=== PATIENT | male | born 1970 | race Two or more races ===

== ENCOUNTER 2017-08-02 12:55 | Emergency (ER) | payer OTHER ==
[~2017-08-02] VITALS: Ht 165.1 cm; Wt 83.9 kg
[2017-08-02 13:41] VITALS: BP 97/62
--- NOTE | 2017-08-02 14:16 | Emergency Room Report ---
History of Present Illness General Chief Complaint: Skin Rash/Abscess Source: Patient Present Illness HPI Pt. presents to the ED c/o 02/02 in severity localized pain, swelling, and erythema with drainage to the posterior left scalp area x 6 days. Denies fevers or chills. Patient reports history of diabetes and he takes oral hypoglycemic medications. Patient denies pain in the neck or stiffness.Denies lesions/ rashes elsewhere on the body. Denies new medications or body washes or creams. Denies swelling of the lips, tongue , throat or airway. Denies wheezing, or shortness of breath. Denies recent travel, recent illness or ill contacts. denies blisters, oral lesions, or sloughing of the skin. Allergies: Coded Allergies: No Known Allergies (Unverified , 08/02/17) Patient History Past Medical History: see triage record Past Surgical History: none Pertinent Family History: none Reviewed Nursing Documentation: PMH: Agreed, PSxH: Agreed Nursing Documentation-PMH Past Medical History: No History, Except For Hx Hypertension: Yes Hx Diabetes: Yes Hx Gastrointestinal Problems: Yes - KIDNEY STENT Hx Dialysis: No - GOUT Review of Systems All Other Systems: negative except mentioned in HPI Physical Exam Vital Signs Date Time Temp Pulse Resp B/P (MAP) Pulse Ox O2 Delivery O2 Flow Rate FiO2 08/02/17 13:15 98.2 83 20 97/62 99 Room Air Sp02 EP Interpretation: reviewed, normal General Appearance: no apparent distress, alert, GCS 15, non-toxic Head: normocephalic, other - abscess to the left posterior scalp - draining. ENT: hearing grossly normal, normal voice Neck: full range of motion, no meningismus, no bony tend Respiratory: lungs clear, normal breath sounds, speaking full sentences Cardiovascular #1: regular rate, rhythm Musculoskeletal: back normal, gait/station normal, normal range of motion, non- tender - no cervical ttp. Neurologic: alert, oriented x3, responsive, motor strength/tone normal, sensory intact, normal gait, speech normal, grossly normal Psychiatric: judgement/insight normal Skin: no rash, warm/dry, well hydrated, other - Pt. has 2 cm fluctuant and draining abscess. Lymphatic: no adenopathy Procedures Incision and Drainage Incision and Drainage : Consent: Verbal Site: left posterior scalp Blade Size: 11 I & D Procedure: betadine prep, sterile drapes applied Wound Location: head Wound's Depth, Shape: superficial Wound Length (cm): 1 Wound Explored: contaminated - thin purulent d/c , easily expressed. Anesthesia: 1% Lidocaine Volume Anesthetic (ccs): 1 Splint Applied?: No Sling Applied?: No Patient Tolerated: Well Complications: None Medical Decision Making PA Attestation Dr. Pham is my supervising Physician whom patient management has been discussed with. Diagnostic Impression: Primary Impression: Abscess ER Course Pt. presents to the ED c/o 02/02 in severity localized pain, swelling, and erythema with drainage to the posterior left scalp area x 6 days. Denies fevers or chills. Patient reports history of diabetes and he takes oral hypoglycemic medications. Patient denies pain in the neck or stiffness.Denies lesions/ rashes elsewhere on the body. Denies new medications or body washes or creams. Denies swelling of the lips, tongue , throat or airway. Denies wheezing, or shortness of breath. Denies recent travel, recent illness or ill contacts. denies blisters, oral lesions, or sloughing of the skin. Ddx considered but are not limited to cellulitis, abscess, cystic acne, necrotizing fasciitis, insect bite. Vital signs: are WNL, pt. is afebrile H&PE are most consistent with ST abscess ORDERS: none required at this time, the diagnosis is clinical ED INTERVENTIONS: -I & D. DISCHARGE: At this time pt. is stable for d/c to home. Will provide printed patient care instructions, and any necessary prescriptions. Care plan and follow up instructions have been discussed with the patient prior to discharge. Last Vital Signs Date Time Temp Pulse Resp B/P (MAP) Pulse Ox O2 Delivery O2 Flow Rate FiO2 08/02/17 13:41 98.2 73 20 97/62 99 Room Air Disposition: HOME, SELF-CARE Condition: Stable Scripts Bacitracin/Polymyxin B Sulfate (BACITRACIN-POLYMYXIN OINTMENT) 28.35 Gm Oint...g. 1 APPLIC TP BID, #28.3 GM Prov: Cristina Crow P.A. 08/02/17 Trimethoprim/Sulfamethoxazole 160/800* (BACTRIM DS TABLET*) 1 Each Tablet 1 TAB ORAL TWICE A DAY for 7 Days, #14 TAB Prov: Cristina Crow P.AJessica 08/02/17 Cephalexin* (KEFLEX*) 500 Mg Capsule 500 MG ORAL EVERY 12 HOURS for 7 Days, #14 CAP 0 Refills Prov: Cristina Crow 08/02/17 Patient Instructions: Abscess Additional Instructions: Take medications as directed. Follow up with a Primary Care Provider in 3-5 days, even if your symptoms have resolved. --Please review list of primary care clinics, if you do not already have a primary care provider Return sooner to ED if new symptoms occur, or current symptoms become worse. - Please note that this Emergency Department Report was dictated using [employer] director technology software, occasionally this can lead to erroneous entry secondary to interpretation by the dictation equipment. Cristina Crow Aug 02, 2017 14:16
[2017-08-02] MEDS ORDERED: BACTRIM DS TAB1 EAC1 ORAL (14:18)
[2017-08-02] MEDS ORDERED: BACITRACIN-P28.35 GM TP (14:18)
[2017-08-02] MEDS ORDERED: CEPHALEXIN500 MG ORAL (14:18)
[2017-08-02] MEDS ORDERED: Tetanus/Diptheria/Pertussis Vaccine 0.5ml Syr IM ONE (14:30)
[2017-08-02 14:57] VITALS: BP 97/62
== END 2017-08-02 15:00 | disposition home or self-care (01) ==
LOC: EMR 13:00
DX: L02.811 Cutaneous abscess of head [any part, except face] (principal); Z23 Encounter for immunization; E11.9 Type 2 diabetes mellitus without complications; I10 Essential (primary) hypertension; M10.9 Gout, unspecified
CPT/HCPCS: 10060; 90471; 90715; 99284

== ENCOUNTER 2018-01-29 08:48 | Emergency (ER) | payer OTHER ==
[~2018-01-29] VITALS: Ht 154.9 cm; Wt 77.1 kg
[~2018-01-29 08:48] MED LIST: BACITRACIN-P28.35 GM TP; BACTRIM DS TAB1 EAC1 ORAL; CEPHALEXIN500 MG ORAL
[2018-01-29 09:00] VITALS: BP 115/74
--- NOTE | 2018-01-29 09:21 | Emergency Room Report ---
History of Present Illness General Chief Complaint: Skin Rash/Abscess Source: Patient Present Illness HPI Patient presents with complaints of discomfort to the posterior neck area with likely infection Pain is 3 out of 10 Patient initially saw some very small discharge however not currently Denies any fevers or chills Denies any photophobia The discomfort to the neck area is around the location of the infection otherwise no meningismus complaint Denies any vomiting or diarrhea Allergies: Coded Allergies: No Known Allergies (Unverified , 08/02/17) Patient History Past Medical History: see triage record Pertinent Family History: none Reviewed Nursing Documentation: PMH: Agreed; PSxH: Agreed Nursing Documentation-PM Past Medical History: No History, Except For Hx Hypertension: Yes Hx Diabetes: Yes Hx Gastrointestinal Problems: Yes - KIDNEY STENT Hx Dialysis: No - GOUT Review of Systems All Other Systems: negative except mentioned in HPI Physical Exam Vital Signs Date Time Temp Pulse Resp B/P (MAP) Pulse Ox O2 Delivery O2 Flow Rate FiO2 01/29/18 08:55 98.2 96 20 115/74 98 98.2 Sp02 EP Interpretation: reviewed, normal General Appearance: well appearing, no apparent distress Head: normocephalic, atraumatic Eyes: bilateral eye PERRL, bilateral eye EOMI ENT: normal pharynx, no angioedema Neck: full range of motion, supple Respiratory: chest non-tender, lungs clear Cardiovascular #1: regular rate, rhythm Gastrointestinal: non tender, soft Musculoskeletal: normal inspection Neurologic: alert, oriented x3, responsive Psychiatric: normal inspection Skin: other - Small area of what appears to be likely folliculitis just at the hairline on the left aspect of the occipital region. No obvious dermatomal spread, the folliculitis measures approximately half by half centimeter. Lymphatic: no adenopathy Medical Decision Making Diagnostic Impression: Primary Impression: Folliculitis ER Course The area in question at this time does not require and is not appropriate for incision Patient will be trialed on warm compresses and oral antibiotics Patient is educated that if there is any worsening of his condition or the size of the area to return to the emergency room more emergently as the area could potentially require incision at that time And will have initial conservative outpatient trial Last Vital Signs Date Time Temp Pulse Resp B/P (MAP) Pulse Ox O2 Delivery O2 Flow Rate FiO2 01/29/18 08:55 98.2 96 20 115/74 98 98.2 Status: unchanged Disposition: HOME, SELF-CARE Condition: Stable Additional Instructions: Patient is provided with the discharge instructions notified to follow up with primary doctor in the next 2-3 days otherwise return to the er with any worsening symptoms. Please note that this report is being documented using [employer] technology. This can lead to erroneous entry secondary to incorrect interpretation by the dictating instrument. Leonard Can DO Jan 29, 2018 09:21
[2018-01-29] MEDS ORDERED: CEPHALEXIN500 MG ORAL (09:23)
[2018-01-29] MEDS ORDERED: IBUPROFEN600 MG ORAL (09:23)
[2018-01-29] MEDS ORDERED: BACTRIM DS TAB1 EAC1 ORAL (09:23)
[2018-01-29 09:37] VITALS: BP 106/65
== END 2018-01-29 09:37 | disposition home or self-care (01) ==
LOC: EMR 09:28
DX: L73.9 Follicular disorder, unspecified (principal); E11.9 Type 2 diabetes mellitus without complications; I10 Essential (primary) hypertension
CPT/HCPCS: 99282

== ENCOUNTER 2018-06-23 08:43 | Emergency (ER) | payer OTHER ==
[~2018-06-23] VITALS: Ht 160 cm; Wt 77.1 kg
[~2018-06-23 08:43] MED LIST changes: +IBUPROFEN600 MG ORAL
[2018-06-23 09:12] VITALS: BP 122/79
[2018-06-23] MEDS ORDERED: Bactrim-DS 1 tab ORAL ONE (09:15)
[2018-06-23] MEDS ORDERED: traMADol 50mg tab ORAL ONE (09:15)
[2018-06-23] MEDS ORDERED: Bacitracin Oint UD TOPIC ONE (09:15)
--- NOTE | 2018-06-23 09:16 | NUR ---
ED Nurse Note: Pt came in from home due to R 5th finger swelling and pain pt cut his finger 3-4 days ago, patient was opening a card board box. patient c/o pain 9/10radiating to his right upper arm daughter at bedside. patient stated that he drained the pus as much as he can.
--- NOTE | 2018-06-23 09:19 | Emergency Room Report ---
History of Present Illness General Chief Complaint: Skin Rash/Abscess Source: Patient Present Illness HPI Diabetic patient presents with infection of his right little finger. He put a needle into it and it drained pus last night. Still with swelling and pain. The swelling is better. Pain is rated 8-9/10 and radiates up into his arm. No fevers, chills, redness in hand or arm. No NVD. The patient is insulin-dependent. He states his sugars have been maximally at this the 380s. They're being controlled better at this time. His last tetanus shot was 2 years ago. Had abscess I and D neck July this year. Allergies: Coded Allergies: No Known Allergies (Unverified , 08/02/17) Patient History Past Medical History: see triage record Social History: Denies: smoking, alcohol use, drug use Social History Narrative with daughter Reviewed Nursing Documentation: PMH: Agreed; PSxH: Agreed Nursing Documentation-PMH Past Medical History: No History, Except For Hx Hypertension: Yes Hx Diabetes: Yes Hx Gastrointestinal Problems: Yes - KIDNEY STENT Hx Dialysis: No - GOUT Review of Systems All Other Systems: negative except mentioned in HPI Physical Exam Vital Signs Date Time Temp Pulse Resp B/P (MAP) Pulse Ox O2 Delivery O2 Flow Rate FiO2 06/23/18 08:56 97.9 80 18 122/79 97 Room Air Sp02 EP Interpretation: reviewed, normal General Appearance: well appearing, no apparent distress Head: normocephalic, atraumatic Eyes: bilateral eye normal inspection, bilateral eye PERRL ENT: hearing grossly normal, normal voice Neck: full range of motion, supple Respiratory: no respiratory distress, speaking full sentences Cardiovascular #1: regular rate, rhythm Cardiovascular #2: 2+ radial (R) - good cap fill Gastrointestinal: normal inspection Musculoskeletal: back normal, gait/station normal, normal range of motion, swelling - radial side of little finger Neurologic: alert, normal gait, grossly normal Psychiatric: mood/affect normal Skin: other - R little finger paronychium, no erythema, no fluctuance or pus under skin Medical Decision Making Diagnostic Impression: Primary Impression: Paronychia ER Course Diabetic patient presents with paronychia him of his right little finger. It has been draining according to the patient. Oral antibiotics are indicated. He addition he'll be treated for pain. This may need to have wedge resection or incision and drainage if the oral antibiotics along with his local care are not enough. We'll have him return in 2 days' time for repeat evaluation. Patient stable for outpatient observation and treatment. Status: improved Disposition: HOME, SELF-CARE Condition: Improved Scripts Tramadol Hcl* (ULTRAM*) 50 Mg Tablet 50 MG ORAL Q6H PRN for For Pain, #10 TAB 0 Refills Prov: Carlos Pham MD 06/23/18 Trimethoprim/Sulfamethoxazole 160/800* (BACTRIM DS TABLET*) 1 Each Tablet 1 TAB ORAL Q12H, #14 TAB 0 Refills Prov: Carlos Pham MD 06/23/18 Referrals: [facility],REFERRING (PCP) Carlos Pham MD Jun 23, 2018 09:19
--- NOTE | 2018-06-23 09:20 | NUR ---
ED Nurse Note: attempted to dispense tramadol, problem occured for failed hardware. Brenda OVIEDO and Patricio pharmacy service associate witnessed, 8 found on the tramadol cubbie. CN made aware.
[2018-06-23] MEDS ORDERED: TRAMADOL HCL50 MG ORAL (09:25)
[2018-06-23] MEDS ORDERED: BACTRIM DS TAB1 EAC1 ORAL (09:25)
--- NOTE | 2018-06-23 09:33 | NUR ---
ED Nurse Note: pain medicatin tramadol given, daughter by the bedside, daughter will drive back home
[2018-06-23 09:43] VITALS: BP 122/79
--- NOTE | 2018-06-23 09:44 | NUR ---
ED Nurse Note: Patient is cleared by DR. Vero GARCIA, discharge information/paper/ prescription given, patient verbalized understanding, patient's daughter signed discharge paper, patient is right handed could not sign due to right hand pain. ID band removed. Patient ambulated out of ED steady gait.
== END 2018-06-23 09:44 | disposition home or self-care (01) ==
LOC: EMR 09:05
DX: L03.011 Cellulitis of right finger (principal); L02.511 Cutaneous abscess of right hand; E11.9 Type 2 diabetes mellitus without complications; I10 Essential (primary) hypertension
CPT/HCPCS: 99283

== ENCOUNTER 2018-11-04 09:16 | Emergency (ER) | payer OTHER ==
[~2018-11-04] VITALS: Ht 157.5 cm; Wt 77.1 kg
[~2018-11-04 09:16] MED LIST changes: +TRAMADOL HCL50 MG ORAL
[2018-11-04] MEDS ORDERED: AMLODIPINE-ATO1 EAC1 ORAL (09:42)
[2018-11-04] MEDS ORDERED: ACETAMINOPHEN-1 EAC4 ORAL (09:42)
[2018-11-04] MEDS ORDERED: GABAPENTIN300 MG ORAL (09:42)
[2018-11-04] MEDS ORDERED: OMEPRAZOLE20 M3 ORAL (09:42)
[2018-11-04] MEDS ORDERED: LORAZEPAM1 MG ORAL (09:42)
[2018-11-04] MEDS ORDERED: SIMVASTATIN40 MG ORAL (09:42)
[2018-11-04] MEDS ORDERED: CELEXA20 MG ORAL (09:42)
[2018-11-04] MEDS ORDERED: FLOMAX0.4 MG ORAL (09:42)
[2018-11-04] MEDS ORDERED: METHOCARBAMOL500 MG ORAL (09:42)
[2018-11-04] MEDS ORDERED: LANTUS SOL100 UNIT/1 SUBQ (09:42)
[2018-11-04] MEDS ORDERED: SULFAMETHOXAZOLE (09:42)
[2018-11-04] MEDS ORDERED: ATORVASTATIN CA40 MG ORAL (09:42)
[2018-11-04] MEDS ORDERED: METFORMIN HCL500 M1 ORAL (09:42)
[2018-11-04 09:46] VITALS: BP 95/66
--- NOTE | 2018-11-04 09:47 | NUR ---
ED Nurse Note: Patient walked in to ER c/o general rash which started since last night after he ate seafood. pt denied having seafood allergy before. pt is aao x4 and ambulatory. rash on neck and both arms noted but no bleeding or swelling. calm and cooperative.
--- NOTE | 2018-11-04 10:07 | Emergency Room Report ---
History of Present Illness General Chief Complaint: Skin Rash/Abscess Source: Patient Present Illness HPI Patient reports eating a seafood dish yesterday approximately 11:00 This included shrimp octapolar was and other types seafood at approximately 5: 00 in the evening patient started having a rash abdominal area upper neck bilateral arm As the itching persisted and the rash persisted patient presents to the ER He has not taken any other medications denies any short of breath denies any abdominal pain denies any vomiting or diarrhea Allergies: Coded Allergies: No Known Allergies (Unverified , 08/02/17) Patient History Past Medical History: see triage record Pertinent Family History: none Reviewed Nursing Documentation: PMH: Agreed; PSxH: Agreed Nursing Documentation-PMH Hx Hypertension: Yes Hx Pacemaker: No Hx Asthma: Yes Hx Diabetes: Yes Hx Gastrointestinal Problems: Yes - KIDNEY STENT Hx Dialysis: No - GOUT History Of Psychiatric Problem: Yes Review of Systems All Other Systems: negative except mentioned in HPI Physical Exam Vital Signs Date Time Temp Pulse Resp B/P (MAP) Pulse Ox O2 Delivery O2 Flow Rate FiO2 11/04/18 09:31 97.5 84 16 96 Room Air 11/04/18 09:46 95/66 Sp02 EP Interpretation: reviewed, normal General Appearance: well appearing, no apparent distress Head: normocephalic, atraumatic Eyes: bilateral eye PERRL, bilateral eye EOMI ENT: hearing grossly normal, normal pharynx, TMs + canals normal, uvula midline Neck: full range of motion, supple, no meningismus, no bony tend Respiratory: lungs clear, normal breath sounds, no rhonchi, no respiratory distress, no retraction, no accessory muscle use Cardiovascular #1: normal peripheral pulses, regular rate, rhythm, no edema, no gallop, no JVD, no murmur Gastrointestinal: normal bowel sounds, non tender, soft, no mass, no organomegaly, non-distended, no guarding, no hernia, no pulsatile mass, no rebound Genitourinary: no CVA tenderness Musculoskeletal: normal inspection Neurologic: oriented x3, responsive, cannery tender engineer III-XII nml as tested, motor strength/ tone normal, sensory intact Psychiatric: mood/affect normal Skin: other - Diffuse urticarial rash involving the chest abdominal area bilateral arms, airway is clear Lymphatic: normal inspection, no adenopathy Medical Decision Making Diagnostic Impression: Primary Impression: Rash and other nonspecific skin eruption ER Course Patient appears to be having a rash and reaction to food intake from yesterday Patient's airway is not involved Patient will had acute intervention here continues to do well And will have initial conservative outpatient trial Last Vital Signs Date Time Temp Pulse Resp B/P (MAP) Pulse Ox O2 Delivery O2 Flow Rate FiO2 11/04/18 09:46 97.5 84 16 95/66 96 Room Air Status: improved Disposition: HOME, SELF-CARE Condition: Improved Scripts Methylprednisolone (Methylprednisolone*) 4MG Dspk 4 MG ORAL DIRECTED for 6 Days, #21 EA 0 Refills Day 1: Two tablets before breakfast, one after lunch, one after dinner, and two at bedtime. If started late in the day, take all six tablets at once or divide into two or three doses, unless otherwise directed by prescriber. Day 2: One tablet before breakfast, one after lunch, one after dinner, and two at bedtime Day 3: One tablet before breakfast, one after lunch, one after dinner, and one at bedtime Day 4: One tablet before breakfast, one after lunch, and one at bedtime Day 5: One tablet before breakfast and one at bedtime Day 6: One tablet before breakfast Prov: Leonard Can DO 11/04/18 Diphenhydramine Hcl* (BENADRYL*) 25 Mg Capsule 25 MG ORAL Q6H PRN for Itching, #30 CAP Prov: Leonard Can DO 11/04/18 Additional Instructions: Patient is provided with the discharge instructions notified to follow up with primary doctor in the next 2-3 days otherwise return to the er with any worsening symptoms. Please note that this report is being documented using [employer] technology. This can lead to erroneous entry secondary to incorrect interpretation by the dictating instrument. Leonard Can DO November 04, 2018 10:07
[2018-11-04] MEDS ORDERED: MEDROL DOSEPAK4 MG ORAL (10:22)
[2018-11-04] MEDS ORDERED: BENADRYL25 MG ORAL (10:22)
[2018-11-04 10:26] VITALS: BP 95/66
--- NOTE | 2018-11-04 10:27 | NUR ---
ER DISCHARGE NOTE: Patient is cleared to be discharged per ERMD, pt is aox4, on room air, with stable vital signs. pt was given dc and prescription instructions, pt was able to verbalize understanding, pt id band removed. pt is able to ambulate with steady gait. pt took all belongings.
== END 2018-11-04 10:30 | disposition home or self-care (01) ==
LOC: EMR 10:00
DX: R21 Rash and other nonspecific skin eruption (principal); E11.9 Type 2 diabetes mellitus without complications
CPT/HCPCS: 99282; J7512

== ENCOUNTER 2018-11-13 15:23 | Emergency (ER) | payer OTHER ==
[~2018-11-13] VITALS: Ht 162.6 cm; Wt 72.6 kg
[~2018-11-13 15:23] MED LIST changes: +ACETAMINOPHEN-1 EAC4 ORAL; +AMLODIPINE-ATO1 EAC1 ORAL; +ATORVASTATIN CA40 MG ORAL; +BENADRYL25 MG ORAL; +CELEXA20 MG ORAL; +FLOMAX0.4 MG ORAL; +GABAPENTIN300 MG ORAL; +LANTUS SOL100 UNIT/1 SUBQ; +LORAZEPAM1 MG ORAL; +MEDROL DOSEPAK4 MG ORAL; +METFORMIN HCL500 M1 ORAL; +METHOCARBAMOL500 MG ORAL; +OMEPRAZOLE20 M3 ORAL; +SIMVASTATIN40 MG ORAL; +SULFAMETHOXAZOLE
--- NOTE | 2018-11-13 15:35 | NUR ---
ED Nurse Note: Patient walked into ED c/o rashes on the upper chest, patient visited [facility] last week for the same symptom. patient is alert awake x4 ambulatory breathing unlabored and even.
--- NOTE | 2018-11-13 16:04 | Emergency Room Report ---
History of Present Illness General Chief Complaint: Skin Rash/Abscess Source: Medical Record Present Illness HPI 48-year-old male presents to the emergency department complaining of recurrent rash primarily on the neck but also on his torso as well he states that he was seen here 2 weeks ago and treated with steroids and Benadryl which did help to improve his symptoms slightly however once he stopped taking medication his symptoms returned. Patient denies history of allergies. He initially thought it was something he ate but he is not sure when his causing this reaction. Patient has not followed up with his primary care doctor. Pt. denies fevers, chills or swollen tender lymph nodes. Denies new medications or body washes or creams. Denies swelling of the lips, tongue , throat or airway. Denies wheezing , or shortness of breath. Denies recent travel, recent illness or ill contacts. denies blisters, oral lesions, or sloughing of the skin Allergies: Coded Allergies: No Known Allergies (Unverified , 08/02/17) Patient History Past Medical History: see triage record Past Surgical History: none Pertinent Family History: none Immunizations: UTD Reviewed Nursing Documentation: PMH: Agreed; PSxH: Agreed Nursing Documentation-PMH Past Medical History: No History, Except For Hx Hypertension: Yes Hx Pacemaker: No Hx Asthma: Yes Hx Diabetes: Yes Hx Gastrointestinal Problems: Yes - KIDNEY STENT Hx Dialysis: No - GOUT Review of Systems All Other Systems: negative except mentioned in HPI Physical Exam Vital Signs Date Time Temp Pulse Resp B/P (MAP) Pulse Ox O2 Delivery O2 Flow Rate FiO2 11/13/18 15:27 97.7 96 16 95 Room Air Sp02 EP Interpretation: reviewed, normal General Appearance: no apparent distress, alert, GCS 15, non-toxic Head: normocephalic, atraumatic Eyes: bilateral eye normal inspection, bilateral eye PERRL ENT: hearing grossly normal, normal voice, other - No swelling of the lips or tongue Neck: full range of motion Respiratory: chest non-tender, lungs clear, normal breath sounds, no respiratory distress, no wheezing, speaking full sentences Cardiovascular #1: regular rate, rhythm Gastrointestinal: other - Scant/diffuse urticarial type lesions noted on the upper abdomen. Genitourinary: normal inspection Musculoskeletal: back normal, gait/station normal, normal range of motion, non- tender Neurologic: alert, oriented x3, responsive, motor strength/tone normal, sensory intact, speech normal, grossly normal Psychiatric: judgement/insight normal Skin: normal color, no rash, warm/dry, well hydrated, other - urticarial lesions on the abdomen and coalesced around the anterior neck with obvious border. no blisters or vesicles. Lymphatic: no adenopathy Medical Decision Making PA Attestation Dr. castro is my supervising Physician whom patient management has been discussed with. Diagnostic Impression: Primary Impression: Rash and other nonspecific skin eruption ER Course 48-year-old male presents to the emergency department complaining of recurrent rash primarily on the neck but also on his torso as well he states that he was seen here 2 weeks ago and treated with steroids and Benadryl which did help to improve his symptoms slightly however once he stopped taking medication his symptoms returned. Patient denies history of allergies. He initially thought it was something he ate but he is not sure when his causing this reaction. Patient has not followed up with his primary care doctor. Pt. denies fevers, chills or swollen tender lymph nodes. Denies new medications or body washes or creams. Denies swelling of the lips, tongue , throat or airway. Denies wheezing , or shortness of breath. Denies recent travel, recent illness or ill contacts. denies blisters, oral lesions, or sloughing of the skin Ddx considered but are not limited to cellulitis, scabies, shingles, varicella, dermatitis, urticaria, eczema, tinea, viral exanthem, SJS Vital signs: are WNL, pt. is afebrile H&PE are most consistent with contact/chemical dermatitis. No evidence of impending airway compromise or anaphylaxis. Patient has never had to be intubated in the past. ORDERS: none required at this time, the diagnosis is clinical ED INTERVENTIONS: Prednisone DISCHARGE: At this time pt. is stable for d/c to home. Will provide printed patient care instructions, and any necessary prescriptions. Care plan and follow up instructions have been discussed with the patient prior to discharge. Last Vital Signs Date Time Temp Pulse Resp B/P (MAP) Pulse Ox O2 Delivery O2 Flow Rate FiO2 11/13/18 15:27 97.7 96 16 95 Room Air Disposition: HOME, SELF-CARE Condition: Stable Scripts Hydroxyzine Pamoate* (HYDROXYZINE PAMOATE*) 100 Mg Capsule 100 MG ORAL Q6H for itching, #28 TAB 0 Refills Prov: Cristina Crow 11/13/18 Hydrocortisone 2% Cream (ANTI-ITCH 2% CREAM) Y Cr 1 APPLIC TP TID, #28 GM 2 Refills Prov: Cristina Crow 11/13/18 Prednisone* (PREDNISONE*) 20 Mg Tablet 40 MG ORAL DAILY for 5 Days, #10 TAB Prov: Cristina Crow 11/13/18 Patient Instructions: Rash Additional Instructions: Take medications as directed. Follow up with a Primary Care Provider in 3-5 days for DERMATOLOGY/ [facility] REFERRAL, even if your symptoms have resolved. --Please review list of primary care clinics, if you do not already have a primary care provider Return sooner to ED if new symptoms occur, or current symptoms become worse. Do not drink alcohol, drive, or operate heavy machinery while taking hydroxyzine as this may cause drowsiness. - Please note that this Emergency Department Report was dictated using [employer] Corporation[employer] programming manager technology software, occasionally this can lead to erroneous entry secondary to interpretation by the dictation equipment. Cristina Crow November 13, 2018 16:04
[2018-11-13] MEDS ORDERED: PREDNISONE20 MG ORAL (16:13)
[2018-11-13] MEDS ORDERED: ANTI-ITCH28 G1 TP (16:13)
[2018-11-13] MEDS ORDERED: HYDROXYZINE PA100 MG ORAL (16:13)
[2018-11-13 16:21] VITALS: BP 152/81
[2018-11-13 16:28] VITALS: BP 152/81
--- NOTE | 2018-11-13 16:29 | NUR ---
ER DISCHARGE NOTE: Patient is cleared to be discharged per DAVID ALEJANDRO, pt is aox4, on room air, with stable vital signs. pt was given dc and prescription instructions, pt was able to verbalize understanding, pt id band removed without complications. pt is able to ambulate with steady gait. pt took all belongings.
== END 2018-11-13 16:28 | disposition home or self-care (01) ==
LOC: EMR 15:40
DX: R21 Rash and other nonspecific skin eruption (principal); I10 Essential (primary) hypertension; E11.9 Type 2 diabetes mellitus without complications
CPT/HCPCS: 99282; J7512

== ENCOUNTER 2019-12-30 08:54 | Emergency (ER) | payer MEDICAID, OTHER ==
[~2019-12-30] VITALS: Ht 157.5 cm; Wt 72.6 kg
[~2019-12-30 08:54] MED LIST changes: +ANTI-ITCH28 G1 TP; +HYDROXYZINE PA100 MG ORAL; +PREDNISONE20 MG ORAL
--- NOTE | 2019-12-30 09:21 | NUR ---
ED Nurse Note: Pt walked into ED for abscesses on posterior head and neck for a week. Small abscesses, No drainage. Pt is alert and ox4, ambulatory. No COVID symptoms.
[2019-12-30 09:23] VITALS: BP 124/81
--- NOTE | 2019-12-30 09:52 | Emergency Room Report ---
History of Present Illness General Chief Complaint: Skin Rash/Abscess Source: Patient Present Illness HPI Patient is a 49-year-old male presents after increased rash to his neck. Patient reports having prior history of diabetes. He states that sugars been approximately in the 150s. Reports having increased discomfort to the back of his neck. Thinks he may have been bitten by some insects. Denies any fever.Patient had not been vomiting or having any diarrhea denies any shortness of breath. Allergies: Coded Allergies: SULFAMETHOXAZOLE (Verified Allergy, Unknown, 12/30/19) COVID-19 Screening Contact w/high risk pt: No Recent Travel to affected area: No Experienced COVID-19 symptoms?: No COVID-19 Testing performed MACHINE HEEL BUILDER: No Patient History Past Medical History: see triage record Reviewed Nursing Documentation: PMH: Agreed; PSxH: Agreed Nursing Documentation-PMH Hx Hypertension: Yes Hx Pacemaker: No Hx Asthma: Yes Hx Diabetes: Yes Hx Gastrointestinal Problems: Yes - GERD Hx Dialysis: No - GOUT Review of Systems All Other Systems: negative except mentioned in HPI Physical Exam Vital Signs Date Time Temp Pulse Resp B/P (MAP) Pulse Ox O2 Delivery O2 Flow Rate FiO2 12/30/19 09:11 99.0 107 21 119/84 (96) 96 Room Air Sp02 EP Interpretation: reviewed, normal General Appearance: normal inspection, well appearing, no apparent distress, alert, GCS 15, non-toxic, obese Head: atraumatic ENT: normal ENT inspection, hearing grossly normal, normal voice Neck: normal inspection, full range of motion, supple, no bony tend Respiratory: normal inspection, lungs clear, normal breath sounds, no respiratory distress, no retraction, no wheezing Cardiovascular #1: regular rate, rhythm, no edema Gastrointestinal: normal inspection, normal bowel sounds, non tender, soft, no guarding, no hernia Genitourinary: no CVA tenderness Musculoskeletal: normal inspection, back normal, normal range of motion Neurologic: alert, motor strength/tone normal, craft worker III-XII nml as tested, oriented x3, responsive, speech normal, normal inspection Psychiatric: normal inspection, judgement/insight normal, mood/affect normal Skin: other - Skin rash to the back of the neck with multiple small pustular lesions. Medical Decision Making Diagnostic Impression: Primary Impression: Folliculitis ER Course Patient present for skin rash. Diagnosis include was not limited to folliculitis, Britt, contact dermatitis among others. Patient has a benign exam and does not appear to require any imaging or laboratory testing at this time. Patient does not appear to have any evidence of drainable abscess at this time. There does appear to be some infection and this does not appear to be shingles. Patient was given Keflex in the emergency department as well as prescription for further antibiotics. He is advised to have the area rechecked with his primary care physician and to return if worse. He was advised that this may need drainage if swelling increases. Patient is advised to return if any worsening condition or if any changes in status that are concerning. This report is dictated with [employer] bookbinding machine operator software which may occasionally lead to discrepancies related to use of this software. Last Vital Signs Date Time Temp Pulse Resp B/P (MAP) Pulse Ox O2 Delivery O2 Flow Rate FiO2 12/30/19 09:23 99.0 82 19 124/81 97 Room Air Status: improved Disposition: HOME, SELF-CARE Condition: Stable Referrals: [facility],REFERRING (PCP) Bola Morales MD Dec 30, 2019 09:52
[2019-12-30] MEDS ORDERED: CEPHALEXIN500 MG ORAL (09:53)
[2019-12-30] MEDS ORDERED: LD2JL30 TOPIC (09:54)
[2019-12-30 09:59] VITALS: BP 119/83
[2019-12-30] MEDS ORDERED: Cephalexin 500mg cap ORAL ONE (10:00)
[2019-12-30] MEDS ORDERED: Lidocaine HCl 2% Jelly 6ml Tube TOPIC ONE (10:00)
== END 2019-12-30 10:00 | disposition home or self-care (01) ==
LOC: EMR 09:41
DX: L73.9 Follicular disorder, unspecified (principal); E11.9 Type 2 diabetes mellitus without complications; I10 Essential (primary) hypertension; K21.9 Gastro-esophageal reflux disease without esophagitis; E66.9 Obesity, unspecified; Z68.29 Body mass index [BMI] 29.0-29.9, adult
CPT/HCPCS: 99282

== ENCOUNTER 2020-06-21 18:38 | Inpatient (IN) | payer MEDICAID, OTHER ==
[~2020-06-21] VITALS: Ht 154.9 cm; Wt 70.3 kg
[~2020-06-21 18:38] MED LIST changes: +LD2JL30 TOPIC
--- NOTE | 2020-06-21 19:30 | NUR ---
ED Nurse Note: Patient brought in by ambulance [facility] 826 from home with c/o dizziness/nausea and vomiting onset 2 days ago. Patient has hx of hypertension and diabetes. Pt stated BP is going up and down at home. Triage BS 226. Patient denies SOB//CP, fever/ chills, denies fall/injury/trauma. Patient is AAOX4 and ambulatory
--- NOTE | 2020-06-21 19:45 | NUR ---
ED Nurse Note: Blood sent to lab for workup
[2020-06-21 19:57] LABS: BASOPHILS % (AUTO) 0.8 % (0.0-2.0); EOSINOPHILS % (AUTO) 0.1 % (0.0-3.0); HEMATOCRIT 51.2 % (42.0-52.0); MEAN CORPUSCULAR VOLUME 86 FL (80-99); MONOCYTES % (AUTO) 8.8 % (1.0-10.0); NEUTROPHILS % (AUTO) 71.2 % (45.0-75.0); PLATELET COUNT 170 K/UL (150-450); RED BLOOD COUNT 5.96 M/UL (4.70-6.10); RED CELL DISTRIBUTION WIDTH 12.2 % (11.6-14.8); WHITE BLOOD COUNT 7.3 K/UL (4.8-10.8)
[2020-06-21 20:00] VITALS: BP 129/88
[2020-06-21 20:02] LABS: HEMOGLOBIN 18.5 G/DL (14.2-18.0)
[2020-06-21 20:06] LABS: ANION GAP 9 mmol/L (5-15); BLOOD UREA NITROGEN 12 mg/dL (7-18); CALCIUM 8.6 MG/DL (8.5-10.1); CARBON DIOXIDE 27 MMOL/L (21-32); CHLORIDE 100 MMOL/L (98-107); CREATININE 1.2 MG/DL (0.55-1.30); POTASSIUM 3.1 MMOL/L (3.5-5.1); SODIUM 136 MMOL/L (136-145)
--- NOTE | 2020-06-21 20:10 | NUR ---
ED Nurse Note: Xray and CT scan done
--- NOTE | 2020-06-21 20:11 | NUR ---
Nurse Note: Informed ER DO about critical result hgb 18.5; per Dr. Leiva, repeat bloodwork ordered.
[2020-06-21 20:12] LABS: ALANINE AMINOTRANSFERASE 55 U/L (12-78); ALBUMIN 3.5 G/DL (3.4-5.0); ALBUMIN/GLOBULIN RATIO 0.8 (1.0-2.7); ALKALINE PHOSPHATASE 133 U/L (46-116); ASPARTATE AMINO TRANSFERASE 37 U/L (15-37); BILIRUBIN,TOTAL 0.5 MG/DL (0.2-1.0)
--- NOTE | 2020-06-21 20:15 | NUR ---
ED Nurse Note: Blood redraw done. Lactic sent
--- NOTE | 2020-06-21 20:20 | Diagnostic Imaging Report ---
EXAM: XR Chest, 1 View CLINICAL HISTORY: SYNCOPE TECHNIQUE: Frontal view of the chest. COMPARISON: No relevant prior studies available. FINDINGS: Lungs: Low lung volumes with bronchovascular crowding. No consolidation, pleural effusion, or pneumothorax. Pleural space: See above. Heart: Unremarkable. No cardiomegaly. Mediastinum: Unremarkable. Bones/joints: No acute abnormality IMPRESSION: 1. Low lung volumes with bronchovascular crowding. 2. Otherwise no acute cardiopulmonary disease. 3. If there is continued concern, consider frontal and lateral chest radiographs or CT.
--- NOTE | 2020-06-21 20:21 | Diagnostic Imaging Report ---
EXAM: CT Head Without Intravenous Contrast CLINICAL HISTORY: SYNCOPE TECHNIQUE: Axial computed tomography images of the head/brain without intravenous contrast. CTDI is 53.40 mGy and DLP is 885.20 mGy-cm. One or more of the following dose reduction techniques were used: automated exposure control, adjustment of the mA and/or kV according to patient size, use of iterative reconstruction technique. COMPARISON: No relevant prior studies available. FINDINGS: Brain: Unremarkable. No hemorrhage. No significant white matter disease. No edema. Ventricles: Unremarkable. No ventriculomegaly. Bones/joints: Unremarkable. No acute fracture. Soft tissues: Unremarkable. Sinuses: Unremarkable as visualized. No acute sinusitis. Mastoid air cells: Unremarkable as visualized. No mastoid effusion. IMPRESSION: Unremarkable head/brain CT.
[2020-06-21 20:30] LABS: BASOPHILS % (AUTO) 0.6 % (0.0-2.0); EOSINOPHILS % (AUTO) 0.2 % (0.0-3.0); HEMATOCRIT 44.9 % (42.0-52.0); LYMPHOCYTES % (AUTO) 18.1 % (20.0-45.0); MEAN CORPUSCULAR VOLUME 86 FL (80-99); MONOCYTES % (AUTO) 9.5 % (1.0-10.0); NEUTROPHILS % (AUTO) 71.7 % (45.0-75.0); PLATELET COUNT 153 K/UL (150-450); RED BLOOD COUNT 5.24 M/UL (4.70-6.10); RED CELL DISTRIBUTION WIDTH 12.3 % (11.6-14.8); WHITE BLOOD COUNT 7.2 K/UL (4.8-10.8)
--- NOTE | 2020-06-21 20:50 | NUR ---
ED Nurse Note: Urinse specimen sent
[2020-06-21 20:57] LABS: CREATINE KINASE 41 U/L (26-308); FERRITIN 485 NG/ML (8-388); LACTATE DEHYDROGENASE 175 U/L (81-234)
[2020-06-21] MEDS ORDERED: cefTRIAXone 1 GM in NS 55 ML IVPB ONE (21:00)
[2020-06-21] MEDS ORDERED: dexAMETHasone 10mg/ml Inj IV ONE (21:00)
[2020-06-21] MEDS ORDERED: Azithromycin 500 MG in NS 275 ML IV ONE (21:00)
[2020-06-21 21:08] LABS: APPEARANCE,URINE CLEAR; BILIRUBIN, URINE NEGATIVE (NEGATIVE); GLUCOSE, URINE (UA) 3+ (NEGATIVE); KETONES,URINE 2+ (NEGATIVE); LEUKOCYTE ESTERASE ,URINE 1+ (NEGATIVE); NITRITE,URINE NEGATIVE (NEGATIVE); PH,URINE 6 (4.5-8.0); PROTEIN,URINE 3+ (NEGATIVE); UROBILINOGEN,URINE 1 MG/DL (0.0-1.0)
[2020-06-21 21:09] LABS: COLOR,URINE YELLOW
[2020-06-21 21:13] LABS: CKMB < 0.5 NG/ML (0.0-3.6)
--- NOTE | 2020-06-21 21:23 | Emergency Room Report ---
History of Present Illness General Chief Complaint: Dizziness Source: Patient, EMS Present Illness HPI 50-year-old male with insulin-dependent diabetes, hypertension, dyslipidemia, brought in by ambulance for generalized weakness x4 days. Patient is actively vomiting on my arrival. No witnessed hematemesis. Patient denies complaint of chest pain, shortness of breath, diarrhea, melena, hematochezia, dysuria, hematuria. He states that because of the vomiting he also has right flank pain. He is unaware of any recent sick contacts, recent hospitalization, or antibiotic use. Denies slurred speech, visual blurring, focal weakness, saddle anesthesia, or midline back pain He states that he feels like he is going to pass out. Denies previous symptoms similar to this The patient's symptoms were gradual onset, severity was moderate, duration since 4 days. Quality: Generally weak Past medical history: Diabetes, hypertension, dyslipidemia Past surgical history: Denies Smoking: Denies Alcohol use: Denies Drug use: Denies Review of systems: CONST: No fevers positive chills, No night sweats PULMONARY: No productive cough, No shortness of breath CARDIAC: No chest pain, No palpitations GI: Positive vomiting, No diarrhea , No melena_or_BRBPR : No dysuria, No hematuria, No discharge NEURO: No new_focal_weakness_or_numbness, No confusion, No vision changes 14 point Review of Systems is otherwise negative except per HPI Physical Exam: GENERAL: Awake_alert_ nontoxic, no acute distress Spo2 98% on RA -normal. Overall lethargic appearing EYES: Extraocular muscles are intact. Conjunctivae clear. Lids without swelling. No nystagmus. PERRLA ENT: External nose and ear normal_in_appearance. Oropharynx clear. Head_atraumatic, dry_oral_mucosa NECK: No JVD. No meningismus. No thyromegaly. Supple. Trachea midline No midline cervical, thoracic, lumbar spinal step-offs. No tenderness to palpation. Negative Kernig sign RESP: Normal respiratory effort. Symmetric rise. No stridor. Clear_to_auscultation_No_rales_No_wheezes CARDIAC: Regular rate and regular rhytm. No_significant pedal edema. ABDOMEN: Soft. Nondistended. Nontender_No_rebound_or_guarding. Negative Vidal sign. Negative Rovsing. Negative obturator. Actively vomiting/retching. nonperitoneal abdomen MSK: Normal muscle tone, without rigidity. Extremities without asymmetric deformity or swelling. SKIN: Warm and dry. No visible cyanosis or pallor NEUROLOGIC: Alert, oriented x3. Motor_and_sensation_grossly_intact. No truncal ataxia. Gait_normal Psych: Normal mood and affect, normal judgment and insight - COORDINATION OF CARE Case was discussed with: Patient , Patient's Physician Any labs and imaging that were ordered were interpreted as part of the medical decision making: Medical Decision Making/Plan: Differential diagnosis for the patients symptoms include , malignant arrhythmias, obstructive heart disease (critical aortic stenosis, hypertrophic cardiomyopathy), acute anemia, severe dehydration, electrolyte abnormalities, among others. Patient's exam shows patient is generally weak appearing. He is afebrile with no focal neurologic deficit. No petechial rash. No photophobia. No nuchal rigidity. Doubt meningitis/encephalitis. EKG shows no signs of malignant arrhythmia such as Brugada syndrome, delta wave, epsilon wave, significant heart block, or QTc >500. CXR shows possible Covid. Rapid Covid swab was positive. I suspect that this is the reason why he is feeling so generally weak. Nausea was controlled with Zofran Troponin is negativex1. CT head negative for intracranial hemorrhage. Patient is SF syncope criteria negative, however was weak on his feet and cannot ambulate on his own. I suspect that he will require inpatient PT/OT and rehydration. He is high risk for bounce back secondary to COVID-19. Labs show no severe electrolyte derangement such as severe hyponatremia, hypokalemia, acidosis, or hypoglycemia. The patient denies any external blood loss and has no significant pallor or evidence of acute anemia as a cause of their symptoms. Hemoglobin is not severely low, actually it was hemoconcentrated. Repeat trop after fluids showed downtrending fo Hgb. In addition, the patient has no loud murmur or evidence of significant obstructive heart disease, symptoms are not in the setting of exertion. The patient is neurologically intact, with normal cerebellar exam, without any evidence of central vertigo as a cause of their symptoms. However, given the patients risk factors, the patient would benefit from admission to observation for continuous cardiac monitoring, given the possibility of cardiac syncope. I spoke with Dr. Villeda, and reviewed the patients presentation, workup, results, and treatment. They will admit the patient for further care and evaluation, and assume care of the patient at this time. Allergies: Coded Allergies: SULFAMETHOXAZOLE (Verified Allergy, Unknown, 12/30/19) COVID-19 Screening Contact w/high risk pt: No Recent Travel to affected area: No Experienced COVID-19 symptoms?: No COVID-19 Testing performed COLOR SPECIALIST: No Nursing Documentation-PMH Hx Hypertension: Yes Hx Pacemaker: No Hx Asthma: Yes Hx Diabetes: Yes Hx Gastrointestinal Problems: Yes - GERD Hx Dialysis: No - GOUT Physical Exam Vital Signs Date Time Temp Pulse Resp B/P (MAP) Pulse Ox O2 Delivery O2 Flow Rate FiO2 06/21/20 18:47 97.9 91 18 129/88 (102) 98 Room Air Sp02 EP Interpretation: reviewed, normal Medical Decision Making Diagnostic Impression: Primary Impression: COVID-19 Additional Impressions: Syncope Generalized weakness EKG Diagnostic Results PA Scribe Text 12-lead EKG (interpreted by me) Time: 1936 Indication: Rhythm analysis Tracing visualized and Interpreted by me. Rhythm: Normal sinus rhythm Rate: 88 bpm QTc: 447 Morphology: No_significant_ST_elevations_or_depressions, No STEMI Impression: Normal_sinus_rhythm_without_significant_abnormality Rhythm Strip Diag. Results Rhythm Strip Time: 21:22 EP Interpretation: yes Chest X-Ray Diagnostic Results Chest X-Ray Diagnostic Results : PA Scribe Text Chest X-Ray: Views: [ 1 ] view(s) Indication: syncope Findings: Normal heart size. Mediastinum normal. Impression: GGO. Possible COVID 19 The X-ray(s) were independently viewed and interpreted contemporaneously Electronically signed by Flori wilhelm DO CT/MRI/US Diagnostic Results CT/MRI/US Diagnostic Results : Impression CT Head Without Intravenous Contrast FINDINGS: Brain: Unremarkable. No hemorrhage. No significant white matter disease. No edema. Ventricles: Unremarkable. No ventriculomegaly. Bones/joints: Unremarkable. No acute fracture. Soft tissues: Unremarkable. Sinuses: Unremarkable as visualized. No acute sinusitis. Mastoid air cells: Unremarkable as visualized. No mastoid effusion. IMPRESSION: Unremarkable head/brain CT. Reevaluation Time: 22:30 Last Vital Signs Date Time Temp Pulse Resp B/P (MAP) Pulse Ox O2 Delivery O2 Flow Rate FiO2 06/21/20 20:00 98.0 84 18 129/88 98 Room Air Status: unchanged Disposition: ADMITTED INPATIENT Admit Decision Time: 22:30 Condition: Stable Referrals: NON PHYSICIAN (PCP) Flori Leiva D.O. Jun 21, 2020 21:23
--- NOTE | 2020-06-21 21:26 | NUR ---
ED Nurse Note: Road test done Pt unable to ambulate/stand on his own. Pt still feels dizzy and nauseated when trying to stand. Addendum: 06/21/20 at 2129 by [email or web address] ED Nurse Note: Road test done Pt unable to ambulate/stand on his own. Pt fell back on the bed after trying to stand, stated he still feels dizzy and nauseated. Pt brought back to bed and continued to ensure safety protocols.
--- NOTE | 2020-06-21 21:29 | NUR ---
ED Nurse Note: Road test done Pt unable to ambulate/stand on his own. Pt fell back on the bed after trying to stand, stated he still feels dizzy and nauseated. Pt brought back to bed and continued to ensure safety protocols.
--- NOTE | 2020-06-21 22:15 | NUR ---
ED Nurse Note: Spoke to ROSANNA MADRID and gave an update on pts condition
[2020-06-22] VITALS (10 sets, daily range): BP systolic 100–121; BP diastolic 61–91
--- NOTE | 2020-06-22 01:04 | NUR ---
ED Nurse Note: Pt asleep on bed. Needs attended. VSS as documented
--- NOTE | 2020-06-22 05:50 | NUR ---
ED Nurse Note: Admit labs sent. Patient awake on bed, drinks provided
--- NOTE | 2020-06-22 07:10 | NUR ---
HAND-OFF: Report given to TOMER OVIEDO.
--- NOTE | 2020-06-22 07:11 | NUR ---
ED Nurse Note: Received report from Gary OVIEDO. Pt AAOx4, verbally responsive. Breathing even and unlabored, on room air. Denies pain or any discomfort at this time. [place] provided for comfort. Urinal and call light within reach. Will cont to monitor.
--- NOTE | 2020-06-22 10:05 | NUR ---
ED Nurse Note: Angie Leo NP at bedside.
--- NOTE | 2020-06-22 11:12 | History and Physical ---
History of Present Illness General Date patient seen: Jun 22, 2020 Time patient seen: 10:00 Reason for Hospitalization: COVID, dizziness, Present Illness HPI 50 years old male with PMH of insulin-dependent diabetes mellitus, hypertension, dyslipidemia, asthma, GERD, gout, was brought to emergency department due to generalized weakness for 4-days. Patient was actively vomiting on arrival. No hematemesis. He denied chest pain , shortness of breath, cough. No diarrhea, melena ,hematochezia ,dysuria ,hematuria. He also reported right flank pain. He denied recent hospitalization or recent sick contacts. He denied antibiotic use. He denied focal weakness , slurred speech . Patient reported dizziness and felt like he was about to pass out. Upon evaluation no focal neurological deficit , no petechiae, no rash , no photophobia , no nuchal rigidity. No meningismus signs. Patient was afebrile. EKG revealed sinus rhythm n, o acute ischemic changes. Rapid COVID-19 was positive. Ferritin 485, CRP 6, LDH 175, D-dimer 0.19. Laboratory work-up revealed no leukocytosis , hemoglobin 18.5 , hematocrit 51.2. Lactic acid 1.6 Sodium 136 , potassium 3.1. Glucose 237. Anion gap WNL Urinalysis revealed +3 protein, positive glucose , no evidence of UTI. Urine toxicology screen was negative. CXR revealed no acute cardiopulmonary disease. Pulse oximetry was stable on room air. In emergency department patient received empiric antibiotic, Decadron, antiemetic. Patient received 1 L of fluid. Patient remains extremely dizzy with associated nausea and unable to ambulate, Patient will be admitted to telemetry floor for further management. Allergies: Coded Allergies: SULFAMETHOXAZOLE (Verified Allergy, Unknown, 12/30/19) COVID-19 Screening Contact w/high risk pt: No Recent Travel to affected area: No Experienced COVID-19 symptoms?: No Medication History Scheduled Amlodipine/Atorvastatin 5-40 Mg (Amlodipine-Atorvast 5-40 Mg), 1 TAB ORAL DAILY, (Reported) Atorvastatin Calcium* (Atorvastatin Calcium*), 40 MG ORAL BEDTIME, (Reported) Bacitracin/Polymyxin B Sulfate (Bacitracin-Polymyxin Ointment), 1 APPLIC TP BID Cephalexin* (Keflex*), 500 MG ORAL EVERY 6 HOURS Citalopram Hydrobromide* (Celexa*), 20 MG ORAL DAILY, (Reported) Gabapentin* (Gabapentin*), 300 MG ORAL BEDTIME, (Reported) Hydrocortisone 2% Cream (Anti-Itch 2% Cream), 1 APPLIC TP TID Hydroxyzine Pamoate* (Hydroxyzine Pamoate*), 100 MG ORAL Q6H Insulin Glargine (Lantus), 0 SUBQ BEDTIME, (Reported) Lidocaine HCL 2% Jelly* (Lidocaine Jelly 2%*), 1 ML TOPIC DAILY Lorazepam* (Lorazepam*), 1 MG ORAL THREE TIMES A DAY, (Reported) Metformin Hcl* (Metformin Hcl*), 500 MG ORAL TWICE A DAY, (Reported) Methylprednisolone (Methylprednisolone*), 4 MG ORAL DIRECTED Omeprazole (Omeprazole), 20 MG ORAL DAILY, (Reported) Prednisone* (Prednisone*), 40 MG ORAL DAILY Simvastatin (Zocor), 40 MG ORAL BEDTIME, (Reported) Tamsulosin HCl (Flomax), 0.4 MG ORAL DAILY, (Reported) Trimethoprim/Sulfamethoxazole 160/800* (Bactrim Ds Tablet*), 1 TAB ORAL Q12H Scheduled PRN Acetaminophen With Codeine 300MG/60MG* (Acetaminophen With Codeine #4 Tab*), 1 TAB ORAL Q6H PRN for For Pain, (Reported) Diphenhydramine Hcl* (Benadryl*), 25 MG ORAL Q6H PRN for Itching Ibuprofen (Motrin), 600 MG ORAL Q8H PRN for For Pain Methocarbamol* (Robaxin-500*), 500 MG ORAL TID PRN for For Pain, (Reported) Tramadol Hcl* (Ultram*), 50 MG ORAL Q6H PRN for For Pain Miscellaneous Medications [sulfametoxazol], (Reported) Patient History Healthcare decision maker Resuscitation status Full code Advanced Directive on File Review of Systems Constitutional: Reports: weakness Eye: Reports: no symptoms ENT: Reports: no symptoms Respiratory: Reports: no symptoms Cardiovascular: Reports: no symptoms Gastrointestinal: Reports: nausea, vomiting Genitourinary: Reports: other - hx of BPH Musculoskeletal: Reports: gout Psychiatric: Reports: no symptoms Neurological: Reports: dizziness Endocrine: Reports: other - hx of DM Hematologic/Lymphatic: Reports: no symptoms Physical Exam General Appearance: no apparent distress, alert oriented x3 Lines, tubes and drains: peripheral HEENT: normocephalic, atraumatic, anicteric Neck: non-tender, supple Respiratory/Chest: chest wall non-tender, lungs clear, no respiratory distress Cardiovascular/Chest: normal rate, regular rhythm Abdomen: normal bowel sounds, non tender, soft Extremities: normal range of motion, non-tender, no calf tenderness, normal capillary refill Skin Exam: warm/dry Neurologic: no motor/sensory deficits, alert, oriented x 3, responsive, normal mood/affect Lymphatic: anterior cervical Musculoskeletal: normal muscle bulk Last 24 Hour Vital Signs Date Time Temp Pulse Resp B/P (MAP) Pulse Ox O2 Delivery O2 Flow Rate FiO2 06/22/20 07:11 98.5 94 16 112/61 96 Room Air 06/22/20 05:15 98.0 86 19 108/79 99 Room Air 06/22/20 00:10 98.0 78 20 109/75 99 Room Air 06/21/20 20:00 98.0 84 18 129/88 98 Room Air 06/21/20 20:00 88 18 Room Air 06/21/20 18:47 97.9 91 18 129/88 (102) 98 Room Air Laboratory Tests Test 06/21/20 19:40 06/21/20 20:18 06/21/20 21:00 White Blood Count 7.3 K/UL (4.8-10.8) 7.2 K/UL (4.8-10.8) Red Blood Count 5.96 M/UL (4.70-6.10) 5.24 M/UL (4.70-6.10) Hemoglobin 18.5 G/DL (14.2-18.0) *H 16.0 G/DL (14.2-18.0) Hematocrit 51.2 % (42.0-52.0) 44.9 % (42.0-52.0) Mean Corpuscular Volume 86 FL (80-99) 86 FL (80-99) Mean Corpuscular Hemoglobin 31.0 PG (27.0-31.0) 30.6 PG (27.0-31.0) Mean Corpuscular Hemoglobin Concent 36.1 G/DL (32.0-36.0) H 35.7 G/DL (32.0-36.0) Red Cell Distribution Width 12.2 % (11.6-14.8) 12.3 % (11.6-14.8) Platelet Count 170 K/UL (150-450) 153 K/UL (150-450) Mean Platelet Volume 8.4 FL (6.5-10.1) 8.7 FL (6.5-10.1) Neutrophils (%) (Auto) 71.2 % (45.0-75.0) 71.7 % (45.0-75.0) Lymphocytes (%) (Auto) 19.0 % (20.0-45.0) L 18.1 % (20.0-45.0) L Monocytes (%) (Auto) 8.8 % (1.0-10.0) 9.5 % (1.0-10.0) Eosinophils (%) (Auto) 0.1 % (0.0-3.0) 0.2 % (0.0-3.0) Basophils (%) (Auto) 0.8 % (0.0-2.0) 0.6 % (0.0-2.0) Sodium Level 136 MMOL/L (136-145) Potassium Level 3.1 MMOL/L (3.5-5.1) L Chloride Level 100 MMOL/L (98-107) Carbon Dioxide Level 27 MMOL/L (21-32) Anion Gap 9 mmol/L (5-15) Blood Urea Nitrogen 12 mg/dL (7-18) Creatinine 1.2 MG/DL (0.55-1.30) Estimat Glomerular Filtration Rate > 60 mL/min (>60) Glucose Level 237 MG/DL (74-106) H Calcium Level 8.6 MG/DL (8.5-10.1) Total Bilirubin 0.5 MG/DL (0.2-1.0) Aspartate Amino Transf (AST/SGOT) 37 U/L (15-37) Alanine Aminotransferase (ALT/SGPT) 55 U/L (12-78) Alkaline Phosphatase 133 U/L (46-116) H Creatine Kinase MB < 0.5 NG/ML (0.0-3.6) Troponin I 0.005 ng/mL (0.000-0.056) Total Protein 7.8 G/DL (6.4-8.2) Albumin 3.5 G/DL (3.4-5.0) Globulin 4.3 g/dL Albumin/Globulin Ratio 0.8 (1.0-2.7) L Lipase 105 U/L (73-393) D-Dimer 0.19 mg/L FEU (0.00-0.49) Lactic Acid Level 1.60 mmol/L (0.4-2.0) Ferritin 485 NG/ML (8-388) H Lactate Dehydrogenase 175 U/L (81-234) Total Creatine Kinase 41 U/L (26-308) C-Reactive Protein, Quantitative 6.0 mg/dL (0.00-0.90) H Urine Color Yellow Urine Appearance Clear Urine pH 6 (4.5-8.0) Urine Specific [place] 1.020 (1.005-1.035) Urine Protein 3+ (NEGATIVE) H Urine Glucose (UA) 3+ (NEGATIVE) H Urine Ketones 2+ (NEGATIVE) H Urine Blood Negative (NEGATIVE) Urine Nitrite Negative (NEGATIVE) Urine Bilirubin Negative (NEGATIVE) Urine Urobilinogen 1 MG/DL (0.0-1.0) H Urine Leukocyte Esterase 1+ (NEGATIVE) H Urine RBC 0 /HPF (0 - 0) Urine WBC 0-2 /HPF (0 - 0) Urine Squamous Epithelial Cells Occasional /LPF Urine Bacteria Few /HPF (NONE) Urine Opiates Screen Negative (NEGATIVE) Urine Barbiturates Screen Negative (NEGATIVE) Phencyclidine (PCP) Screen Negative (NEGATIVE) Urine Amphetamines Screen Negative (NEGATIVE) Urine Benzodiazepines Screen Negative (NEGATIVE) Urine Cocaine Screen Negative (NEGATIVE) Urine Marijuana (THC) Screen Negative (NEGATIVE) Microbiology Date/Time Source Procedure Growth Status 06/21/20 20:00 Nasopharynx SARS-CoV-2 RdRp Gene Assay - Final Complete Height (Feet): 5 Height (Inches): 1.00 Weight (Pounds): 155 Assessment/Plan Assessment/Plan: ASSESSMENT COVID 19 infection Dizziness, near syncope with associated nonbloody nonbilious emesis Hypokalemia HTN IDDM Gout BPH PLAN OF CARE tele CT head negative serial troponin ECHO cardio eval pending orthostatic VS dizziness may be due to COVID infection , in addition may have some dehydration due to associated emesis start IV hydration O2 prn titrate to keep sat > 92 Albuterol MDI prn a/c with Lovenox hold off on steroids, given no hypoxia, closely monitor resp status and oxygenation steroids will start only if hypoxic/ requires supplemetnal O2 CXR stable ID consult pending fup with inflammatory markers fup with imaging replace K, check K and Mg, likely due to vomiting GI prophylaxis BS management with Metformin and SSI prn anion gap WNL, no evidence of DKA ? gastroparesis check HgA1c a/emetic prn diabetic diet as tolerated BP management, currently hold off all anti HTN resume Flomax fall precautions supportive care case discussed and evaluated by supervising physician Angie Wang NP Jun 22, 2020 11:11
[2020-06-22] MEDS ORDERED: Albuterol 90mcg Inhaler 8gm INH PRN (11:15)
--- NOTE | 2020-06-22 11:40 | NUR ---
ED Nurse Note: 2decho done at bedside.
[2020-06-22] MEDS: NovoLOG Insulin Flexpen SUBQ SCH ×3 (13:02→22:45)
--- NOTE | 2020-06-22 13:29 | NUR ---
ED Nurse Note: Pt c/o nausea and vomiting. Reglan 10mg IVP PRN given as order. Will reassess the patient.
[2020-06-22] MEDS: Metoclopramide 10mg/2ml Inj IVP PRN ×2 (13:32→19:44)
[2020-06-22 14:08] LABS: ANION GAP 12 mmol/L (5-15); BLOOD UREA NITROGEN 17 mg/dL (7-18); CARBON DIOXIDE 22 MMOL/L (21-32); CHLORIDE 104 MMOL/L (98-107); CREATININE 1.2 MG/DL (0.55-1.30); POTASSIUM 3.6 MMOL/L (3.5-5.1); SODIUM 137 MMOL/L (136-145)
--- NOTE | 2020-06-22 14:16 | NUR ---
ED Nurse Note: Pt seen sleeping in bed, not in any distress. Call light within reach. Pratt provided for comfort. All needs attended. Will cont to monitor.
--- NOTE | 2020-06-22 14:26 | Cardiac Electrophysiology PN ---
Subjective Subjective Seen in ER and DW ER [id number] Objective Last 24 Hour Vital Signs Date Time Temp Pulse Resp B/P (MAP) Pulse Ox O2 Delivery O2 Flow Rate FiO2 06/22/20 12:06 98.5 86 19 116/79 100 Room Air 79 112/74 06/22/20 07:11 98.5 94 16 112/61 96 Room Air 06/22/20 05:15 98.0 86 19 108/79 99 Room Air 06/22/20 00:10 98.0 78 20 109/75 99 Room Air 06/21/20 20:00 98.0 84 18 129/88 98 Room Air 06/21/20 20:00 88 18 Room Air 06/21/20 18:47 97.9 91 18 129/88 (102) 98 Room Air Laboratory Tests Test 06/21/20 19:40 06/21/20 20:18 06/21/20 21:00 06/22/20 12:04 White Blood Count 7.3 K/UL (4.8-10.8) 7.2 K/UL (4.8-10.8) Red Blood Count 5.96 M/UL (4.70-6.10) 5.24 M/UL (4.70-6.10) Hemoglobin 18.5 G/DL (14.2-18.0) *H 16.0 G/DL (14.2-18.0) Hematocrit 51.2 % (42.0-52.0) 44.9 % (42.0-52.0) Mean Corpuscular Volume 86 FL (80-99) 86 FL (80-99) Mean Corpuscular Hemoglobin 31.0 PG (27.0-31.0) 30.6 PG (27.0-31.0) Mean Corpuscular Hemoglobin Concent 36.1 G/DL (32.0-36.0) H 35.7 G/DL (32.0-36.0) Red Cell Distribution Width 12.2 % (11.6-14.8) 12.3 % (11.6-14.8) Platelet Count 170 K/UL (150-450) 153 K/UL (150-450) Mean Platelet Volume 8.4 FL (6.5-10.1) 8.7 FL (6.5-10.1) Neutrophils (%) (Auto) 71.2 % (45.0-75.0) 71.7 % (45.0-75.0) Lymphocytes (%) (Auto) 19.0 % (20.0-45.0) L 18.1 % (20.0-45.0) L Monocytes (%) (Auto) 8.8 % (1.0-10.0) 9.5 % (1.0-10.0) Eosinophils (%) (Auto) 0.1 % (0.0-3.0) 0.2 % (0.0-3.0) Basophils (%) (Auto) 0.8 % (0.0-2.0) 0.6 % (0.0-2.0) Sodium Level 136 MMOL/L (136-145) Potassium Level 3.1 MMOL/L (3.5-5.1) L Chloride Level 100 MMOL/L (98-107) Carbon Dioxide Level 27 MMOL/L (21-32) Anion Gap 9 mmol/L (5-15) Blood Urea Nitrogen 12 mg/dL (7-18) Creatinine 1.2 MG/DL (0.55-1.30) Estimat Glomerular Filtration Rate > 60 mL/min (>60) Glucose Level 237 MG/DL (74-106) H Calcium Level 8.6 MG/DL (8.5-10.1) Total Bilirubin 0.5 MG/DL (0.2-1.0) Aspartate Amino Transf (AST/SGOT) 37 U/L (15-37) Alanine Aminotransferase (ALT/SGPT) 55 U/L (12-78) Alkaline Phosphatase 133 U/L (46-116) H Creatine Kinase MB < 0.5 NG/ML (0.0-3.6) Troponin I 0.005 ng/mL (0.000-0.056) Total Protein 7.8 G/DL (6.4-8.2) Albumin 3.5 G/DL (3.4-5.0) Globulin 4.3 g/dL Albumin/Globulin Ratio 0.8 (1.0-2.7) L Lipase 105 U/L (73-393) D-Dimer 0.19 mg/L FEU (0.00-0.49) Lactic Acid Level 1.60 mmol/L (0.4-2.0) Ferritin 485 NG/ML (8-388) H Lactate Dehydrogenase 175 U/L (81-234) Total Creatine Kinase 41 U/L (26-308) C-Reactive Protein, Quantitative 6.0 mg/dL (0.00-0.90) H Urine Color Yellow Urine Appearance Clear Urine pH 6 (4.5-8.0) Urine Specific [place] 1.020 (1.005-1.035) Urine Protein 3+ (NEGATIVE) H Urine Glucose (UA) 3+ (NEGATIVE) H Urine Ketones 2+ (NEGATIVE) H Urine Blood Negative (NEGATIVE) Urine Nitrite Negative (NEGATIVE) Urine Bilirubin Negative (NEGATIVE) Urine Urobilinogen 1 MG/DL (0.0-1.0) H Urine Leukocyte Esterase 1+ (NEGATIVE) H Urine RBC 0 /HPF (0 - 0) Urine WBC 0-2 /HPF (0 - 0) Urine Squamous Epithelial Cells Occasional /LPF Urine Bacteria Few /HPF (NONE) Urine Opiates Screen Negative (NEGATIVE) Urine Barbiturates Screen Negative (NEGATIVE) Phencyclidine (PCP) Screen Negative (NEGATIVE) Urine Amphetamines Screen Negative (NEGATIVE) Urine Benzodiazepines Screen Negative (NEGATIVE) Urine Cocaine Screen Negative (NEGATIVE) Urine Marijuana (THC) Screen Negative (NEGATIVE) POC Whole Blood Glucose Pending Test 06/22/20 13:19 Sodium Level 137 MMOL/L (136-145) Potassium Level 3.6 MMOL/L (3.5-5.1) Chloride Level 104 MMOL/L (98-107) Carbon Dioxide Level 22 MMOL/L (21-32) Anion Gap 12 mmol/L (5-15) Blood Urea Nitrogen 17 mg/dL (7-18) Creatinine 1.2 MG/DL (0.55-1.30) Estimat Glomerular Filtration Rate > 60 mL/min (>60) Glucose Level 347 MG/DL (74-106) #H Hemoglobin A1c 9.7 % (4.3-6.0) H Calcium Level 8.0 MG/DL (8.5-10.1) L Magnesium Level 1.9 MG/DL (1.8-2.4) Troponin I 0.000 ng/mL (0.000-0.056) Microbiology Date/Time Source Procedure Growth Status 06/21/20 20:00 Nasopharynx SARS-CoV-2 RdRp Gene Assay - Final Complete Néstor Riley MD Jun 22, 2020 14:26
--- NOTE | 2020-06-22 17:04 | Infectious Diseases Prog Note ---
Assessment/Plan Assessment/Plan Full consult dictated: A) 1) covid-19 virus infection +, no hypoxia, chest x-ray negative for pna 2) syncope P) 1) no indication for covid-19 treatment 2) per primary and cardiology 3) thank you Subjective Allergies: Coded Allergies: SULFAMETHOXAZOLE (Verified Allergy, Unknown, 12/30/19) Objective Last 24 Hour Vital Signs Date Time Temp Pulse Resp B/P (MAP) Pulse Ox O2 Delivery O2 Flow Rate FiO2 06/22/20 12:06 98.5 86 19 116/79 100 Room Air 79 112/74 06/22/20 07:11 98.5 94 16 112/61 96 Room Air 06/22/20 05:15 98.0 86 19 108/79 99 Room Air 06/22/20 00:10 98.0 78 20 109/75 99 Room Air 06/21/20 20:00 98.0 84 18 129/88 98 Room Air 06/21/20 20:00 88 18 Room Air 06/21/20 18:47 97.9 91 18 129/88 (102) 98 Room Air Height (Feet): 5 Height (Inches): 1.00 Weight (Pounds): 155 Microbiology Date/Time Source Procedure Growth Status 06/21/20 20:00 Nasopharynx SARS-CoV-2 RdRp Gene Assay - Final Complete Laboratory Tests Test 06/21/20 19:40 06/21/20 20:18 06/21/20 21:00 06/22/20 12:04 White Blood Count 7.3 K/UL (4.8-10.8) 7.2 K/UL (4.8-10.8) Red Blood Count 5.96 M/UL (4.70-6.10) 5.24 M/UL (4.70-6.10) Hemoglobin 18.5 G/DL (14.2-18.0) *H 16.0 G/DL (14.2-18.0) Hematocrit 51.2 % (42.0-52.0) 44.9 % (42.0-52.0) Mean Corpuscular Volume 86 FL (80-99) 86 FL (80-99) Mean Corpuscular Hemoglobin 31.0 PG (27.0-31.0) 30.6 PG (27.0-31.0) Mean Corpuscular Hemoglobin Concent 36.1 G/DL (32.0-36.0) H 35.7 G/DL (32.0-36.0) Red Cell Distribution Width 12.2 % (11.6-14.8) 12.3 % (11.6-14.8) Platelet Count 170 K/UL (150-450) 153 K/UL (150-450) Mean Platelet Volume 8.4 FL (6.5-10.1) 8.7 FL (6.5-10.1) Neutrophils (%) (Auto) 71.2 % (45.0-75.0) 71.7 % (45.0-75.0) Lymphocytes (%) (Auto) 19.0 % (20.0-45.0) L 18.1 % (20.0-45.0) L Monocytes (%) (Auto) 8.8 % (1.0-10.0) 9.5 % (1.0-10.0) Eosinophils (%) (Auto) 0.1 % (0.0-3.0) 0.2 % (0.0-3.0) Basophils (%) (Auto) 0.8 % (0.0-2.0) 0.6 % (0.0-2.0) Sodium Level 136 MMOL/L (136-145) Potassium Level 3.1 MMOL/L (3.5-5.1) L Chloride Level 100 MMOL/L (98-107) Carbon Dioxide Level 27 MMOL/L (21-32) Anion Gap 9 mmol/L (5-15) Blood Urea Nitrogen 12 mg/dL (7-18) Creatinine 1.2 MG/DL (0.55-1.30) Estimat Glomerular Filtration Rate > 60 mL/min (>60) Glucose Level 237 MG/DL (74-106) H Calcium Level 8.6 MG/DL (8.5-10.1) Total Bilirubin 0.5 MG/DL (0.2-1.0) Aspartate Amino Transf (AST/SGOT) 37 U/L (15-37) Alanine Aminotransferase (ALT/SGPT) 55 U/L (12-78) Alkaline Phosphatase 133 U/L (46-116) H Creatine Kinase MB < 0.5 NG/ML (0.0-3.6) Troponin I 0.005 ng/mL (0.000-0.056) Total Protein 7.8 G/DL (6.4-8.2) Albumin 3.5 G/DL (3.4-5.0) Globulin 4.3 g/dL Albumin/Globulin Ratio 0.8 (1.0-2.7) L Lipase 105 U/L (73-393) D-Dimer 0.19 mg/L FEU (0.00-0.49) Lactic Acid Level 1.60 mmol/L (0.4-2.0) Ferritin 485 NG/ML (8-388) H Lactate Dehydrogenase 175 U/L (81-234) Total Creatine Kinase 41 U/L (26-308) C-Reactive Protein, Quantitative 6.0 mg/dL (0.00-0.90) H Urine Color Yellow Urine Appearance Clear Urine pH 6 (4.5-8.0) Urine Specific [place] 1.020 (1.005-1.035) Urine Protein 3+ (NEGATIVE) H Urine Glucose (UA) 3+ (NEGATIVE) H Urine Ketones 2+ (NEGATIVE) H Urine Blood Negative (NEGATIVE) Urine Nitrite Negative (NEGATIVE) Urine Bilirubin Negative (NEGATIVE) Urine Urobilinogen 1 MG/DL (0.0-1.0) H Urine Leukocyte Esterase 1+ (NEGATIVE) H Urine RBC 0 /HPF (0 - 0) Urine WBC 0-2 /HPF (0 - 0) Urine Squamous Epithelial Cells Occasional /LPF Urine Bacteria Few /HPF (NONE) Urine Opiates Screen Negative (NEGATIVE) Urine Barbiturates Screen Negative (NEGATIVE) Phencyclidine (PCP) Screen Negative (NEGATIVE) Urine Amphetamines Screen Negative (NEGATIVE) Urine Benzodiazepines Screen Negative (NEGATIVE) Urine Cocaine Screen Negative (NEGATIVE) Urine Marijuana (THC) Screen Negative (NEGATIVE) POC Whole Blood Glucose Pending Test 06/22/20 13:19 Sodium Level 137 MMOL/L (136-145) Potassium Level 3.6 MMOL/L (3.5-5.1) Chloride Level 104 MMOL/L (98-107) Carbon Dioxide Level 22 MMOL/L (21-32) Anion Gap 12 mmol/L (5-15) Blood Urea Nitrogen 17 mg/dL (7-18) Creatinine 1.2 MG/DL (0.55-1.30) Estimat Glomerular Filtration Rate > 60 mL/min (>60) Glucose Level 347 MG/DL (74-106) #H Hemoglobin A1c 9.7 % (4.3-6.0) H Calcium Level 8.0 MG/DL (8.5-10.1) L Magnesium Level 1.9 MG/DL (1.8-2.4) Troponin I 0.000 ng/mL (0.000-0.056) Current Medications Medications (Trade) Dose Ordered Sig/Judith Route PRN Reason Start Time Stop Time Status Last Admin Dose Admin Acetaminophen (Tylenol) 650 mg Q4H PRN ORAL Temp >100.5 06/22/20 11:15 07/22/20 11:14 Albuterol Sulfate (Proventil MDI) 2 puff Q4H PRN INH Shortness of Breath 06/22/20 11:15 09/20/20 11:14 UNV Dextrose (Dextrose 50%) 25 ml Q30M PRN IV Hypoglycemia 06/22/20 11:30 09/20/20 11:29 Dextrose (Dextrose 50%) 50 ml Q30M PRN IV Hypoglycemia 06/22/20 11:30 09/20/20 11:29 Enoxaparin Sodium (Lovenox) 40 mg Q24H SUBQ 06/22/20 17:00 09/20/20 16:59 Famotidine (Pepcid) 40 mg DAILY ORAL 06/23/20 09:00 09/21/20 08:59 Insulin Aspart (NovoLOG) BEFORE MEALS AND HS SUBQ 06/22/20 11:30 09/20/20 11:29 06/22/20 13:02 Metformin HCl (Glucophage) 500 mg TWICE A DAY ORAL 06/22/20 18:00 07/22/20 17:59 Metoclopramide HCl (Reglan) 10 mg Q6H PRN IVP Nausea & Vomiting 06/22/20 11:15 07/22/20 11:14 06/22/20 13:32 Sodium Chloride 1,000 ml @ 75 mls/hr [id number] IV 06/22/20 11:15 07/22/20 11:14 06/22/20 11:15 Tamsulosin HCl (Flomax) 0.4 mg DAILY ORAL 06/23/20 09:00 07/23/20 08:59 Sidra Lowry MD Jun 22, 2020 17:04
--- NOTE | 2020-06-22 17:15 | Consultation ---
DATE OF CONSULTATION: 06/22/2020 CARDIOLOGY CONSULTATION CONSULTING PHYSICIAN: Néstor Riley MD REFERRING PHYSICIAN: Sid Borges MD REASON FOR CONSULTATION: Bradycardia and in a patient with COVID-19. HISTORY OF PRESENT ILLNESS: Patient is a 50-year-old gentleman with history of hypertension, insulin-dependent diabetes, hyperlipidemia as well as asthma, and gastroesophageal reflux disease who was brought to the emergency room for 4 days of generalized weakness. Patient was actively vomiting on arrival to the ER even though he did not have any hematemesis. Patient does not have any chest pain or shortness of breath or cough. Patient did not have any recent hospitalization. Patient's rapid COVID-19 test was positive with ferritin of 485 and CRP of 6 and D-dimer was 0.19. A Cardiology consultation was obtained for further evaluation. In the emergency room, patient received antibiotic, Decadron and antiemetic as well as 1 liter of IV fluids. Patient also had presyncopal episodes associated with nausea and was not able to ambulate. REVIEW OF SYSTEMS: Negative other than what was mentioned in the history of present illness. PAST MEDICAL HISTORY: As mentioned above. FAMILY HISTORY: Noncontributory. MEDICATIONS: Include amlodipine, Lipitor, insulin, metformin, prednisone, simvastatin, and Flomax. PHYSICAL EXAMINATION: VITAL SIGNS: Show blood pressure of 112/79, pulse is 70, respirations 18, temperature 98.5. HEAD AND NECK: Shows no JVD. LUNGS: Coarse rhonchi. CARDIOVASCULAR: Shows regular S1 and S2 with no gallop. ABDOMEN: Soft. EXTREMITIES: No pitting edema. LABORATORY AND DIAGNOSTIC DATA: Labs show white count 7.2, hemoglobin of 16, hematocrit 45, and platelet count is 153. Sodium is 137, potassium 3.6, BUN of 17, creatinine 1.2, and glucose of 347. Troponin is negative. ASSESSMENT AND PLAN: 1. Shortness of breath. Patient was already ruled out for myocardial infarction. We will get an EKG and get an echocardiogram for further evaluation. 2. COVID pneumonia, in isolation. Patient is getting steroid and remdesivir and antibiotic. 3. Diabetes, on metformin and insulin. 4. Hyperlipidemia. We will watch the patient off antihypertensive at this time, blood pressure is as low as 108, but I will just add p.r.n. clonidine to his medical regimen. 5. Actively vomiting, could be due to COVID infection. Thank you very much for allowing me to participate in the care of this patient. Please do not hesitate to contact me for any questions regarding my evaluation. Néstor Riley M.D. DR: LARS JOB#: [id number] CC:
[2020-06-22] MEDS: Enoxaparin 40mg Inj SUBQ SCH (18:25)
[2020-06-22] MEDS: metFORMIN 500mg tab ORAL SCH (18:26)
--- NOTE | 2020-06-22 18:32 | NUR ---
ED Nurse Note: Dinner tray provided. Aspiration precaution is observed. Call light within reach.
--- NOTE | 2020-06-22 18:44 | Consultation ---
DATE OF CONSULTATION: 06/22/2020 INFECTIOUS DISEASE CONSULTATION CONSULTING PHYSICIAN: Sidra Lowry MD ATTENDING PHYSICIAN: Kush Villeda MD REFERRING PHYSICIAN: Kush Villeda MD REASON FOR CONSULTATION: COVID-19 infection. CHIEF COMPLAINT: Patient's chief complaint coming to the hospital is syncope and COVID-19 infection. HISTORY OF PRESENT ILLNESS: This is a very pleasant 50-year-old male who comes in to [facility] with syncope. I saw the patient in the ER. Patient was positive for COVID testing. Infectious Disease consultation is requested. Patient has no respiratory symptoms. No hypoxia. Workup for syncope was done by Primary and Cardiology. REVIEW OF SYSTEMS: CONSTITUTIONAL: Main issue is the syncope. He has no fever or chills. CARDIAC: No chest pain. GASTROINTESTINAL: No nausea, vomiting, or diarrhea. GENITOURINARY: No dysuria or frequency. PULMONARY: No significant short of breath. No hypoxia. SKIN: No rash. PAST MEDICAL HISTORY: Patient has a past medical history of insulin-dependent diabetes mellitus, hypertension, dyslipidemia, asthma, GERD, and gout. ALLERGIES: Patient is allergic to sulfamethoxazole. SOCIAL HISTORY: Negative for smoking, alcohol, or drug abuse. FAMILY HISTORY: Noncontributory. MEDICATIONS: Upon reviewing the MAR, patient is on following medications. He is on , famotidine, metformin, enoxaparin, insulin, albuterol, metoclopramide. Outside medications noted and reconciliated. PHYSICAL EXAMINATION: VITAL SIGNS: Temperature 98.5, pulse rate is 86, respiratory rate 19, blood pressure 116/79, saturation 100% on room air. GENERAL: Alert, responsive. No acute distress. HEAD AND NECK: Oral exam, no thrush. Eye exam, no icterus. Normocephalic. Neck is supple. HEART: Regular. No gallop or murmur. No friction rub. ABDOMEN: Soft. Positive bowel sounds. Nontender. LUNGS: Clear bilaterally. No rhonchi or rales. SKIN: No rash. MUSCULOSKELETAL: No effusion. Legs are without cellulitis. PERIPHERAL VASCULAR: No cyanosis. GENITOURINARY: No [place]. LINE SITES: Without phlebitis. NEUROLOGIC: Intact. Nonfocal. Alert and oriented. LABORATORY DATA: White count 7.2, hemoglobin 16.0. Creatinine 1.2. Ferritin 485. CRP 6. UA negative, 0 to 2 white cells. Chest x-ray shows no acute cardiopulmonary disease. No consolidation. Chest x-ray without consolidation. COVID SARS rapid testing by nasopharyngeal molecular testing is positive. Again COVID testing positive. ASSESSMENT AND PLAN: 1. Patient has COVID-19 infection, but is asymptomatic with regards to respiratory. He has no hypoxia, saturation is 100% on room air. At this time, no indication for treatment with steroids. No indication for treatment with remdesivir. Continue COVID isolation. Continue monitoring for hypoxia. Continue supportive care for COVID-19 infection. 2. Syncope. Workup per Primary and Cardiology. 3. Diabetes. 4. Hypertension. 5. Blood pressure and blood sugar treatment per primary care team. 6. Dyslipidemia. 7. Asthma. 8. GERD. 9. Gout. 10. Continue treatment per primary consultants. 11. Allergies to sulfamethoxazole. 12. Social history is negative. 13. Family history is noncontributory. 14. MAR is noted. 15. Case discussed with RN. Sidra Lowry M.D. DR: KATHY JOB#: [id number] CC:
--- NOTE | 2020-06-22 19:07 | NUR ---
ED Nurse Note: Report received from IVELISSE Berumen. Pt is laying in bed awake, AAOx4. Pt eating dinner. No complaints from pt at the moment.
--- NOTE | 2020-06-22 19:40 | NUR ---
ED Nurse Note: report given to García RN
--- NOTE | 2020-06-22 19:40 | NUR ---
NURSE NOTES: Receive a report from IVELISSE Bangura from ED.
--- NOTE | 2020-06-22 19:50 | NUR ---
ED Nurse Note: [facility] platform [employer] called. Assigned room has no bed. Will call back when bed is available and room is ready .
--- NOTE | 2020-06-22 20:20 | NUR ---
TRANSFER TO FLOOR: Patient transferred to [facility] as ordered via gurney accompanied by RN. Per EDMD ok to transfer. Report given to IVELISSE Mariano. Belongings and admission packet given to [facility] staff.
--- NOTE | 2020-06-22 20:20 | NUR ---
NURSE NOTES: Pt admitted via gurney from ED. Awake and alert. Denies pain but still noted nausea despite medication from ED. No vomiting noted. Will contact MD for further medication. Skin intact. IV is on rt AC without infiltration. Done checking belonging list. Provide unit orientation and fall precautions. Call light within reach. Will continue to monitor.
--- NOTE | 2020-06-22 20:30 | NUR ---
NURSE NOTES: Admission orders have been noted. Will continue to monitor.
--- NOTE | 2020-06-22 21:00 | NUR ---
NURSE NOTES: Receive new order for pt's nausea from Dr. Celeste. Order noted and carried out.
[2020-06-23] VITALS: BP 102/71
[2020-06-23 04:00] VITALS: BP 133/88
[2020-06-23] MEDS: NovoLOG Insulin Flexpen SUBQ SCH ×4 (05:41→21:00)
[2020-06-23 06:39] LABS: BASOPHILS % (AUTO) 0.3 % (0.0-2.0); HEMATOCRIT 45.8 % (42.0-52.0); HEMOGLOBIN 15.9 G/DL (14.2-18.0); LYMPHOCYTES % (AUTO) 15.4 % (20.0-45.0); MEAN CORPUSCULAR VOLUME 90 FL (80-99); MONOCYTES % (AUTO) 6.3 % (1.0-10.0); PLATELET COUNT 164 K/UL (150-450); RED BLOOD COUNT 5.12 M/UL (4.70-6.10); RED CELL DISTRIBUTION WIDTH 12.6 % (11.6-14.8); WHITE BLOOD COUNT 11.1 K/UL (4.8-10.8)
[2020-06-23 06:58] LABS: ANION GAP 7 mmol/L (5-15); BLOOD UREA NITROGEN 14 mg/dL (7-18); CALCIUM 7.8 MG/DL (8.5-10.1); CARBON DIOXIDE 27 MMOL/L (21-32); CHLORIDE 105 MMOL/L (98-107); CHOLESTEROL 194 MG/DL (< 200); CREATININE 1.1 MG/DL (0.55-1.30); HDL CHOLESTEROL 25 MG/DL (40-60); POTASSIUM 3.7 MMOL/L (3.5-5.1); SODIUM 139 MMOL/L (136-145); TRIGLYCERIDES 191 MG/DL (30-150)
--- NOTE | 2020-06-23 07:10 | NUR ---
Nurse notes received patient resting comfortably in bed, patient awake, alert, oriented x4, no sign of distress, on RA. Denies shortness of breath, but still complaining of nausea , IVF patent and infusing well, on fall and covid isolation, both side rails up for safery, bed in low position, call light w/n reach, will continue to monitor patient condition nikolay schulz
--- NOTE | 2020-06-23 07:11 | NUR ---
NURSE HAND-OFF: Important Events on Shift: nausea persist-Given Zofran x2. No SOB/ no cough noted. Patient Status: [stable] Diet: [CCHO medium] Pending Orders: [] Pending Results/Labs:[] Pending MD notification:[Renewal home medication] Latest Vital Signs: Temperature 97.8 , Pulse 98 , B/P 133 /88 , Respiratory Rate 18 , O2 SAT 97 , Room Air, O2 Flow Rate . Vital Sign Comment: [] Latest Bey Fall Score: 45 Fall Risk: High Risk Safety Measures: Call light Within Reach, Bed Alarm , Side Rails Side Rails x2, Bed position Low and Locked. Fall Precautions: Yellow Socks Door Sign Patient Fall Education Report given to IVELISSE Proctor.
[2020-06-23 08:10] VITALS: BP 131/80
[2020-06-23] MEDS: metFORMIN 500mg tab ORAL SCH ×2 (08:33→17:14)
[2020-06-23] MEDS: Tamsulosin 0.4mg cap ORAL SCH (08:33)
[2020-06-23] MEDS: Metoclopramide 10mg/2ml Inj IVP PRN ×2 (08:33→23:02)
[2020-06-23 11:43] VITALS: BP 109/62
--- NOTE | 2020-06-23 12:40 | Cardiac Electrophysiology PN ---
Assessment/Plan Assessment/Plan 1. Shortness of breath. Patient was already ruled out for myocardial infarction. Echocardiogram EF 60% 2. COVID pneumonia, in isolation. Patient is getting steroid and remdesivir and antibiotic. 3. Diabetes, on metformin and insulin. 4. Hyperlipidemia. 5. HTN On p.r.n. clonidine 6. Actively vomiting, could be due to COVID infection. Subjective Subjective In covid isolation in NAD on RA saturating 98% Objective Last 24 Hour Vital Signs Date Time Temp Pulse Resp B/P (MAP) Pulse Ox O2 Delivery O2 Flow Rate FiO2 06/23/20 11:43 98.2 97 109/62 (78) 98 06/23/20 08:30 Room Air 06/23/20 08:10 98.1 96 131/80 (97) 96 06/23/20 04:00 97.8 98 133/88 (103) 97 06/23/20 00:00 97.7 93 102/71 (81) 98 06/22/20 21:00 Room Air 06/22/20 20:52 Room Air 06/22/20 20:30 97.7 95 102/70 (81) 97 06/22/20 20:20 98.2 92 18 116/85 98 Room Air 06/22/20 19:09 98.5 95 16 112/80 96 Room Air 06/22/20 16:25 98.5 78 16 106/71 99 Room Air 06/22/20 14:16 98.5 89 15 121/91 97 Room Air Intake and Output 06/22/20 06/23/20 19:00 07:00 Intake Total 880 ml Output Total 775 ml Balance 105 ml Intake Oral 250 ml IV Total 630 ml Output Urine Total 775 ml # Voids 2 Laboratory Tests Test 06/22/20 13:19 06/22/20 18:20 06/22/20 22:34 06/23/20 05:20 Sodium Level 137 MMOL/L (136-145) 139 MMOL/L (136-145) Potassium Level 3.6 MMOL/L (3.5-5.1) 3.7 MMOL/L (3.5-5.1) Chloride Level 104 MMOL/L (98-107) 105 MMOL/L (98-107) Carbon Dioxide Level 22 MMOL/L (21-32) 27 MMOL/L (21-32) Anion Gap 12 mmol/L (5-15) 7 mmol/L (5-15) Blood Urea Nitrogen 17 mg/dL (7-18) 14 mg/dL (7-18) Creatinine 1.2 MG/DL (0.55-1.30) 1.1 MG/DL (0.55-1.30) Estimat Glomerular Filtration Rate > 60 mL/min (>60) > 60 mL/min (>60) Glucose Level 347 MG/DL (74-106) #H 228 MG/DL (74-106) #H Hemoglobin A1c 9.7 % (4.3-6.0) H Calcium Level 8.0 MG/DL (8.5-10.1) L 7.8 MG/DL (8.5-10.1) L Magnesium Level 1.9 MG/DL (1.8-2.4) Troponin I 0.000 ng/mL (0.000-0.056) 0.000 ng/mL (0.000-0.056) POC Whole Blood Glucose 312 MG/DL (74-106) H 248 MG/DL (74-106) H White Blood Count 11.1 K/UL (4.8-10.8) #H Red Blood Count 5.12 M/UL (4.70-6.10) Hemoglobin 15.9 G/DL (14.2-18.0) Hematocrit 45.8 % (42.0-52.0) Mean Corpuscular Volume 90 FL (80-99) Mean Corpuscular Hemoglobin 31.2 PG (27.0-31.0) H Mean Corpuscular Hemoglobin Concent 34.8 G/DL (32.0-36.0) Red Cell Distribution Width 12.6 % (11.6-14.8) Platelet Count 164 K/UL (150-450) Mean Platelet Volume 8.5 FL (6.5-10.1) Neutrophils (%) (Auto) 78.0 % (45.0-75.0) H Lymphocytes (%) (Auto) 15.4 % (20.0-45.0) L Monocytes (%) (Auto) 6.3 % (1.0-10.0) Eosinophils (%) (Auto) 0.0 % (0.0-3.0) Basophils (%) (Auto) 0.3 % (0.0-2.0) C-Reactive Protein, Quantitative 6.2 mg/dL (0.00-0.90) H Triglycerides Level 191 MG/DL (30-150) H Cholesterol Level 194 MG/DL (< 200) LDL Cholesterol 142 mg/dL (<100) H HDL Cholesterol 25 MG/DL (40-60) L Cholesterol/HDL Ratio 7.8 (3.3-4.4) H Thyroid Stimulating Hormone (TSH) 0.658 uiU/mL (0.358-3.740) Test 06/23/20 11:30 POC Whole Blood Glucose 277 MG/DL (74-106) H Microbiology Date/Time Source Procedure Growth Status 06/21/20 20:00 Nasopharynx SARS-CoV-2 RdRp Gene Assay - Final Complete Objective HEAD AND NECK: Shows no JVD. LUNGS: Coarse rhonchi. CARDIOVASCULAR: Shows regular S1 and S2 with no gallop. ABDOMEN: Soft. EXTREMITIES: No pitting edema. Néstor Riley MD Jun 23, 2020 12:40
[2020-06-23 16:00] VITALS: BP 118/72
[2020-06-23] MEDS: Enoxaparin 40mg Inj SUBQ SCH (16:20)
--- NOTE | 2020-06-23 16:55 | NUR ---
CASE MANAGEMENT:REVIEW SI;COVID PNEUMONIA 99.3 100 18 133/88 96% ON RA WBC 11.1 BG 277 CA 7.8 CRP 6.2 IS;PEPCID PO QD LOVENOX SQ QD REGLAN IV Q6 PRN INSULIN NOVOLOG SQ QID MED SURG STATUS DCP;FROM HOME
--- NOTE | 2020-06-23 17:15 | Pulmonology Progress Note ---
Subjective Allergies: Coded Allergies: SULFAMETHOXAZOLE (Verified Allergy, Unknown, 12/30/19) Subjective now hypoxic on o2 via NC, says it helps less dizzy, ambulated to the bathroom no chest pain mild leukocytosis this am Objective Last 24 Hour Vital Signs Date Time Temp Pulse Resp B/P (MAP) Pulse Ox O2 Delivery O2 Flow Rate FiO2 06/23/20 16:00 99.3 100 18 118/72 (87) 96 06/23/20 11:43 98.2 97 18 109/62 (78) 98 06/23/20 08:30 Room Air 06/23/20 08:10 98.1 96 17 131/80 (97) 96 06/23/20 04:00 97.8 98 133/88 (103) 97 06/23/20 00:00 97.7 93 102/71 (81) 98 06/22/20 21:00 Room Air 06/22/20 20:52 Room Air 06/22/20 20:30 97.7 95 102/70 (81) 97 06/22/20 20:20 98.2 92 18 116/85 98 Room Air 06/22/20 19:09 98.5 95 16 112/80 96 Room Air Intake and Output 06/22/20 06/23/20 19:00 07:00 Intake Total 880 ml Output Total 775 ml Balance 105 ml Intake Oral 250 ml IV Total 630 ml Output Urine Total 775 ml # Voids 2 Objective General Appearance: no apparent distress, alert , oriented x3 Lines, tubes and drains: peripheral HEENT: normocephalic, atraumatic, anicteric, O2 via NC Neck: non-tender, supple Respiratory/Chest: chest wall non-tender, lungs clear, no respiratory distress Cardiovascular/Chest: normal rate, regular rhythm Abdomen: normal bowel sounds, non tender, soft Extremities: normal range of motion, non-tender, no calf tenderness, normal capillary refill Skin Exam: warm/dry Neurologic: no motor/sensory deficits, alert, oriented x 3, responsive, normal mood/affect Lymphatic: anterior cervical Musculoskeletal: normal muscle bulk Microbiology Date/Time Source Procedure Growth Status 06/21/20 20:00 Nasopharynx SARS-CoV-2 RdRp Gene Assay - Final Complete Laboratory Tests 06/22/20 18:20: POC Whole Blood Glucose 312H 06/22/20 22:34: POC Whole Blood Glucose 248H 06/23/20 05:20: White Blood Count 11.1#H, Red Blood Count 5.12, Hemoglobin 15.9, Hematocrit 45.8, Mean Corpuscular Volume 90, Mean Corpuscular Hemoglobin 31.2H, Mean Corpuscular Hemoglobin Concent 34.8, Red Cell Distribution Width 12.6, Platelet Count 164, Mean Platelet Volume 8.5, Neutrophils (%) (Auto) 78.0H, Lymphocytes (%) (Auto) 15.4L, Monocytes (%) (Auto) 6.3, Eosinophils (%) (Auto) 0.0, Basophils (%) (Auto) 0.3, Sodium Level 139, Potassium Level 3.7, Chloride Level 105, Carbon Dioxide Level 27, Anion Gap 7, Blood Urea Nitrogen 14, Creatinine 1.1, Estimat Glomerular Filtration Rate > 60, Glucose Level 228#H, Calcium Level 7.8L, Troponin I 0.000, C-Reactive Protein, Quantitative 6.2H, Triglycerides Level 191H, Cholesterol Level 194, LDL Cholesterol 142H, HDL Cholesterol 25L, Cholesterol/HDL Ratio 7.8H, Thyroid Stimulating Hormone (TSH) 0.658 06/23/20 11:30: POC Whole Blood Glucose 277H 06/23/20 16:00: POC Whole Blood Glucose [Pending] Current Medications Medications (Trade) Dose Ordered Sig/Judith Route PRN Reason Start Time Stop Time Status Last Admin Dose Admin Acetaminophen (Tylenol) 650 mg Q4H PRN ORAL Temp >100.5 06/22/20 11:15 07/22/20 11:14 Albuterol Sulfate (Proventil MDI) 2 puff Q4H PRN INH Shortness of Breath 06/22/20 11:15 09/20/20 11:14 Dextrose (Dextrose 50%) 25 ml Q30M PRN IV Hypoglycemia 06/22/20 11:30 09/20/20 11:29 Dextrose (Dextrose 50%) 50 ml Q30M PRN IV Hypoglycemia 06/22/20 11:30 09/20/20 11:29 Enoxaparin Sodium (Lovenox) 40 mg Q24H SUBQ 06/22/20 17:00 09/20/20 16:59 06/23/20 16:20 Famotidine (Pepcid) 40 mg DAILY ORAL 06/23/20 09:00 09/21/20 08:59 06/23/20 08:33 Insulin Aspart (NovoLOG) BEFORE MEALS AND HS SUBQ 06/22/20 11:30 09/20/20 11:29 06/23/20 16:21 Metformin HCl (Glucophage) 500 mg TWICE A DAY ORAL 06/22/20 18:00 07/22/20 17:59 06/23/20 08:33 Metoclopramide HCl (Reglan) 10 mg Q6H PRN IVP Nausea & Vomiting 06/22/20 11:15 07/22/20 11:14 06/23/20 08:33 Ondansetron HCl (Zofran) 4 mg Q4H PRN IVP Nausea & Vomiting 06/22/20 22:15 07/22/20 22:14 06/23/20 16:18 Sodium Chloride 1,000 ml @ 75 mls/hr [id number] IV 06/22/20 11:15 07/22/20 11:14 06/23/20 13:21 Tamsulosin HCl (Flomax) 0.4 mg DAILY ORAL 06/23/20 09:00 07/23/20 08:59 06/23/20 08:33 Assessment/Plan Assessment/Plan ASSESSMENT COVID 19 infection Dizziness, near syncope with associated nonbloody nonbilious emesis Hypoxia Hypokalemia HTN HLD IDDM Gout BPH PLAN OF CARE MS floor CT head negative serial troponin NGT, ECG non ischemic, ruled out for acute NE ECHO with pEF, no evidence of WMA cardio eval appreciated orthostatic VS-never done dizziness may be due to COVID infection , in addition may have some dehydration due to associated emesis on IV hydration, continue for 1 more day, O2 titrate to keep sat > 92 Albuterol MDI prn a/c with Lovenox start steroids 06/23, given current hypoxia, closely monitor resp status and oxygenation CXR stable ID consult appreciated fup with inflammatory markers, CRP 6.2 fup with imaging a/tussive prn GI prophylaxis BS management with Metformin and SSI prn anion gap WNL, no evidence of DKA ? gastroparesis [id number], not at goal will need more aggressive BS control with steroids a/emetic prn diabetic diet as tolerated , no emesis, less nausea BP management, currently hold off all anti HTN resume Flomax fall precautions supportive care case discussed and evaluated by supervising physician Angie Leo NP Jun 23, 2020 17:15
[2020-06-23] MEDS: dexAMETHasone 10mg/ml Inj IV SCH (18:04)
--- NOTE | 2020-06-23 19:25 | NUR ---
NURSE HAND-OFF: Important Events on Shift:[Still complaining of nausea, anti emetics meds given as ordered] Patient Status: [stable] Diet: [Regular diet] Pending Orders: [labs ] Pending Results/Labs:[none] Pending MD notification:[none] Latest Vital Signs: Temperature 99.3 , Pulse 100 , B/P 118 /72 , Respiratory Rate 18 , O2 SAT 96 , Room Air, O2 Flow Rate . Vital Sign Comment: [stable] Latest Bey Fall Score: 45 Fall Risk: High Risk Safety Measures: Call light Within Reach, Bed Alarm , Side Rails Side Rails x2, Bed position Low and Locked. Fall Precautions: Yellow Socks Door Sign Patient Fall Education Report given to [Marly Coyle RN accordingly .
[2020-06-23 20:00] VITALS: BP 103/55
--- NOTE | 2020-06-23 20:45 | NUR ---
NURSE NOTES: Pt is on bed, awake and alert. No acute distress noted. Pt is on 2L n/c with humidifier. No SOB. Vitals stable. Pastor Fraire is called per patient's request. NS running at 75ml/hr. Fall precaution in place. bed locked low in position, side rails up and call light within reach. Pt instructed to call before getting out of bed. Pt will be monitored.
[2020-06-23] MEDS: guaiFENesin /DM 10ml syrup ORAL PRN (23:02)
[2020-06-24] VITALS: BP 100/65
[2020-06-24 04:00] VITALS: BP 98/44
[2020-06-24] MEDS: NovoLOG Insulin Flexpen SUBQ SCH ×4 (05:01→21:00)
--- NOTE | 2020-06-24 05:15 | NUR ---
NURSE NOTES: Pt is in bed, awake and alert. On 2L n/c. NS running at 75ml/hr.
[2020-06-24 07:11] LABS: HEMATOCRIT 48.4 % (42.0-52.0); HEMOGLOBIN 16.6 G/DL (14.2-18.0); MEAN CORPUSCULAR VOLUME 89 FL (80-99); PLATELET COUNT 169 K/UL (150-450); RED BLOOD COUNT 5.43 M/UL (4.70-6.10); RED CELL DISTRIBUTION WIDTH 12.6 % (11.6-14.8); WHITE BLOOD COUNT 8.8 K/UL (4.8-10.8)
--- NOTE | 2020-06-24 07:15 | NUR ---
NURSE HAND-OFF: Important Events on Shift:[] Patient Status: [Stable] Diet: [] Pending Orders: [] Pending Results/Labs:[] Pending MD notification:[] Latest Vital Signs: Temperature 98.2 , Pulse 79 , B/P 98 /44 , Respiratory Rate 20 , O2 SAT 96 , Room Air, O2 Flow Rate . Vital Sign Comment: [] Latest Bey Fall Score: 45 Fall Risk: High Risk Safety Measures: Call light Within Reach, Bed Alarm , Side Rails Side Rails x2, Bed position Low and Locked. Fall Precautions: Yellow Socks Door Sign Patient Fall Education Report given to [IVELISSE Galan].
[2020-06-24 07:21] LABS: ANION GAP 11 mmol/L (5-15); BLOOD UREA NITROGEN 14 mg/dL (7-18); CALCIUM 8.6 MG/DL (8.5-10.1); CARBON DIOXIDE 23 MMOL/L (21-32); CHLORIDE 106 MMOL/L (98-107); CREATININE 1.1 MG/DL (0.55-1.30); POTASSIUM 3.8 MMOL/L (3.5-5.1); SODIUM 140 MMOL/L (136-145)
[2020-06-24 08:00] VITALS: BP 121/77
--- NOTE | 2020-06-24 08:01 | NUR ---
NURSE NOTES: Patient awake, alert x4; on Nasal cannula 2 Liters, no sing of distress and shortness of breath; no sing of chest pain; IV RAC NS 75cc running; side rails up x2, breaks engaged, bed at lowest position; call light within reach; will keep monitoring.
[2020-06-24] MEDS: metFORMIN 500mg tab ORAL SCH (09:21)
[2020-06-24] MEDS: dexAMETHasone 10mg/ml Inj IV SCH (09:21)
[2020-06-24] MEDS: Tamsulosin 0.4mg cap ORAL SCH (09:21)
--- NOTE | 2020-06-24 10:58 | Pulmonology Progress Note ---
Subjective Allergies: Coded Allergies: SULFAMETHOXAZOLE (Verified Allergy, Unknown, 12/30/19) Subjective now hypoxic on o2 via NC, no resp distress started on steroids 06/23 no fevers, mild leukocytosis reoslved CRP trending up BP remains low less dizzy, no chest pain Objective Last 24 Hour Vital Signs Date Time Temp Pulse Resp B/P (MAP) Pulse Ox O2 Delivery O2 Flow Rate FiO2 06/24/20 09:00 Room Air 06/24/20 08:00 98.3 69 20 121/77 (92) 97 06/24/20 04:00 98.2 79 20 98/44 (62) 96 06/24/20 00:00 99.9 88 16 100/65 (77) 98 06/23/20 21:00 Room Air 06/23/20 20:00 97.4 104 20 103/55 (71) 99 06/23/20 16:00 99.3 100 18 118/72 (87) 96 06/23/20 11:43 98.2 97 18 109/62 (78) 98 Intake and Output 06/23/20 06/24/20 19:00 07:00 Intake Total 1475 ml 975 ml Output Total 1650 ml 400 ml Balance -175 ml 575 ml Intake Oral 600 ml IV Total 875 ml 975 ml Output Urine Total 1650 ml 400 ml # Voids 3 2 Objective General Appearance: no apparent distress, alert , oriented x3 Lines, tubes and drains: peripheral HEENT: normocephalic, atraumatic, anicteric, O2 via NC Neck: non-tender, supple Respiratory/Chest: chest wall non-tender, lungs clear, no respiratory distress Cardiovascular/Chest: normal rate, regular rhythm Abdomen: normal bowel sounds, non tender, soft Extremities: normal range of motion, non-tender, no calf tenderness, normal capillary refill Skin Exam: warm/dry Neurologic: no motor/sensory deficits, alert, oriented x 3, responsive, normal mood/affect Lymphatic: anterior cervical Musculoskeletal: normal muscle bulk Microbiology Date/Time Source Procedure Growth Status 06/21/20 20:00 Nasopharynx SARS-CoV-2 RdRp Gene Assay - Final Complete Laboratory Tests 06/23/20 11:30: POC Whole Blood Glucose 277H 06/23/20 16:00: POC Whole Blood Glucose [Pending] 06/23/20 22:19: POC Whole Blood Glucose 285H 06/24/20 04:45: White Blood Count 8.8, Red Blood Count 5.43, Hemoglobin 16.6, Hematocrit 48.4, Mean Corpuscular Volume 89, Mean Corpuscular Hemoglobin 30.6, Mean Corpuscular Hemoglobin Concent 34.3, Red Cell Distribution Width 12.6, Platelet Count 169, Mean Platelet Volume 7.8, Neutrophils (%) (Auto) , Lymphocytes (%) (Auto) , Monocytes (%) (Auto) , Eosinophils (%) (Auto) , Basophils (%) (Auto) , Differential Total Cells Counted 100, Neutrophils % (Manual) 87H, Lymphocytes % (Manual) 8L, Monocytes % (Manual) 5, Eosinophils % (Manual) 0, Basophils % (Manual) 0, Band Neutrophils 0, Platelet Estimate Adequate, Platelet Morphology Normal, Red Blood Cell Morphology Normal, Sodium Level 140, Potassium Level 3.8, Chloride Level 106, Carbon Dioxide Level 23, Anion Gap 11, Blood Urea Nitrogen 14, Creatinine 1.1, Estimat Glomerular Filtration Rate > 60, Glucose Level 285H, Calcium Level 8.6, C-Reactive Protein, Quantitative 17.4H 06/24/20 04:57: POC Whole Blood Glucose 288H Current Medications Medications (Trade) Dose Ordered Sig/Judith Route PRN Reason Start Time Stop Time Status Last Admin Dose Admin Acetaminophen (Tylenol) 650 mg Q4H PRN ORAL Temp >100.5 06/22/20 11:15 07/22/20 11:14 Albuterol Sulfate (Proventil MDI) 2 puff Q4H PRN INH Shortness of Breath 06/22/20 11:15 09/20/20 11:14 Dexamethasone Sodium Phosphate (Decadron 10mg/ ml Inj) 6 mg DAILY IV 06/23/20 17:15 07/02/20 09:01 06/24/20 09:21 Dextrose (Dextrose 50%) 25 ml Q30M PRN IV Hypoglycemia 06/22/20 11:30 09/20/20 11:29 Dextrose (Dextrose 50%) 50 ml Q30M PRN IV Hypoglycemia 06/22/20 11:30 09/20/20 11:29 Enoxaparin Sodium (Lovenox) 40 mg Q24H SUBQ 06/22/20 17:00 09/20/20 16:59 06/23/20 16:20 Famotidine (Pepcid) 40 mg DAILY ORAL 06/23/20 09:00 09/21/20 08:59 06/24/20 09:21 Guaifenesin/ Dextromethorphan (Robitussin DM Syrup) 10 ml Q4H PRN ORAL For Cough 06/23/20 17:19 09/21/20 17:18 06/23/20 23:02 Insulin Aspart (NovoLOG) BEFORE MEALS AND HS SUBQ 06/22/20 11:30 09/20/20 11:29 06/24/20 05:01 Metformin HCl (Glucophage) 500 mg TWICE A DAY ORAL 06/22/20 18:00 07/22/20 17:59 06/24/20 09:21 Metoclopramide HCl (Reglan) 10 mg Q6H PRN IVP Nausea & Vomiting 06/22/20 11:15 07/22/20 11:14 06/23/20 23:02 Ondansetron HCl (Zofran) 4 mg Q4H PRN IVP Nausea & Vomiting 06/22/20 22:15 07/22/20 22:14 06/23/20 16:18 Sodium Chloride 1,000 ml @ 75 mls/hr [id number] IV 06/22/20 11:15 07/22/20 11:14 06/24/20 03:19 Tamsulosin HCl (Flomax) 0.4 mg DAILY ORAL 06/23/20 09:00 07/23/20 08:59 06/24/20 09:21 Assessment/Plan Assessment/Plan ASSESSMENT COVID 19 infection Dizziness, near syncope with associated nonbloody nonbilious emesis Hypoxia Hypokalemia Hypotension currently Hx of HTN HLD IDDM Gout BPH PLAN OF CARE MS floor CT head negative serial troponin NGT, ECG non ischemic, ruled out for acute MD ECHO with pEF, no evidence of WMA cardio eval appreciated orthostatic VS-never done dizziness may be due to COVID infection , in addition may have some dehydration due to associated emesis on IV hydration, continue given low BP O2 titrate to keep sat > 92 Albuterol MDI prn a/c with Lovenox on steroids Day 2, given current hypoxia, closely monitor resp status and oxygenation may consider Remdesivivr if no improvement fup with inflammatory markers, CRP up to 17.4 this am CXR today initial CXR stable ID follows a/tussive prn GI prophylaxis BS management anion gap WNL, no evidence of DKA HgA1c 9.7, not at goal dc metformin and start LA Levemir and contineu with SSI need more aggressive BS control with steroids a/emetic prn diabetic diet as tolerated , no emesis, less nausea BP management, currently hold off all anti HTN continue Flomax fall precautions supportive care case discussed and evaluated by supervising physician Angie Leo NP Jun 24, 2020 10:58
[2020-06-24] MEDS ORDERED: Levemir Flexpen SUBQ SCH (11:30)
[2020-06-24] MEDS: Metoclopramide 10mg/2ml Inj IVP PRN ×2 (11:49→22:35)
[2020-06-24 12:00] VITALS: BP 120/73
--- NOTE | 2020-06-24 12:27 | NUR ---
RADIOLOGY DEPT., CHEST X-RAY DONE.-P.DYE
--- NOTE | 2020-06-24 13:57 | Diagnostic Imaging Report ---
Indication: Reason For Exam: SOB Technique: One view of the chest Comparison: 06/21/2020 Findings: Interim development of streaky right perihilar and left mid to lower lung perihilar and peripheral infiltrates. Normal heart size and pleural spaces remain clear Impression: New bilateral infiltrates, likely multifocal pneumonia, appearance nonspecific as regards etiology
--- NOTE | 2020-06-24 15:47 | Cardiac Electrophysiology PN ---
Assessment/Plan Assessment/Plan 1. Shortness of breath. Ruled out for myocardial infarction. Echocardiogram EF 60% 2. COVID pneumonia, in isolation.On steroid and remdesivir and antibiotic. 3. Diabetes, on metformin and insulin. 4. Hyperlipidemia. 5. HTN On p.r.n. clonidine 6. Vomiting, could be due to COVID infection. Subjective Subjective In covid isolation in NAD on RA saturating 98% Objective Last 24 Hour Vital Signs Date Time Temp Pulse Resp B/P (MAP) Pulse Ox O2 Delivery O2 Flow Rate FiO2 06/24/20 12:00 98.2 76 20 120/73 (89) 98 06/24/20 09:00 Room Air 06/24/20 08:00 98.3 69 20 121/77 (92) 97 06/24/20 04:00 98.2 79 20 98/44 (62) 96 06/24/20 00:00 99.9 88 16 100/65 (77) 98 06/23/20 21:00 Room Air 06/23/20 20:00 97.4 104 20 103/55 (71) 99 06/23/20 16:00 99.3 100 18 118/72 (87) 96 Intake and Output 06/23/20 06/24/20 19:00 07:00 Intake Total 1475 ml 975 ml Output Total 1650 ml 400 ml Balance -175 ml 575 ml Intake Oral 600 ml IV Total 875 ml 975 ml Output Urine Total 1650 ml 400 ml # Voids 3 2 Laboratory Tests Test 06/23/20 16:00 06/23/20 22:19 06/24/20 04:45 06/24/20 04:57 POC Whole Blood Glucose Pending 285 MG/DL (74-106) H 288 MG/DL (74-106) H White Blood Count 8.8 K/UL (4.8-10.8) Red Blood Count 5.43 M/UL (4.70-6.10) Hemoglobin 16.6 G/DL (14.2-18.0) Hematocrit 48.4 % (42.0-52.0) Mean Corpuscular Volume 89 FL (80-99) Mean Corpuscular Hemoglobin 30.6 PG (27.0-31.0) Mean Corpuscular Hemoglobin Concent 34.3 G/DL (32.0-36.0) Red Cell Distribution Width 12.6 % (11.6-14.8) Platelet Count 169 K/UL (150-450) Mean Platelet Volume 7.8 FL (6.5-10.1) Neutrophils (%) (Auto) % (45.0-75.0) Lymphocytes (%) (Auto) % (20.0-45.0) Monocytes (%) (Auto) % (1.0-10.0) Eosinophils (%) (Auto) % (0.0-3.0) Basophils (%) (Auto) % (0.0-2.0) Differential Total Cells Counted 100 Neutrophils % (Manual) 87 % (45-75) H Lymphocytes % (Manual) 8 % (20-45) L Monocytes % (Manual) 5 % (1-10) Eosinophils % (Manual) 0 % (0-3) Basophils % (Manual) 0 % (0-2) Band Neutrophils 0 % (0-8) Platelet Estimate Adequate Platelet Morphology Normal Red Blood Cell Morphology Normal Sodium Level 140 MMOL/L (136-145) Potassium Level 3.8 MMOL/L (3.5-5.1) Chloride Level 106 MMOL/L (98-107) Carbon Dioxide Level 23 MMOL/L (21-32) Anion Gap 11 mmol/L (5-15) Blood Urea Nitrogen 14 mg/dL (7-18) Creatinine 1.1 MG/DL (0.55-1.30) Estimat Glomerular Filtration Rate > 60 mL/min (>60) Glucose Level 285 MG/DL (74-106) H Calcium Level 8.6 MG/DL (8.5-10.1) C-Reactive Protein, Quantitative 17.4 mg/dL (0.00-0.90) H Microbiology Date/Time Source Procedure Growth Status 06/21/20 20:00 Nasopharynx SARS-CoV-2 RdRp Gene Assay - Final Complete Objective HEAD AND NECK: Shows no JVD. LUNGS: Coarse rhonchi. CARDIOVASCULAR: Shows regular S1 and S2 with no gallop. ABDOMEN: Soft. EXTREMITIES: No pitting edema. Néstor Riley MD Jun 24, 2020 15:47
[2020-06-24 16:00] VITALS: BP 130/69
[2020-06-24] MEDS ORDERED: Loading Dose:Remdesivir 200mg/NS 210ml IV SCH ×2 (16:00)
[2020-06-24] MEDS: Enoxaparin 40mg Inj SUBQ SCH (16:19)
--- NOTE | 2020-06-24 17:09 | NUR ---
CASE MANAGEMENT:REVIEW SI;COVID PNEUMONIA 99.9 86 20 98/44 96% ON RA BG 288 IS;PEPCID PO QD LOVENOX SQ QD REGLAN IV Q6 PRN INSULIN NOVOLOG SQ QID REMDESIVIR IV DECADRON IV IVF NS @ 75 ML/HR REGLAN IV Q6 PRN MED SURG STATUS DCP;FROM HOME
--- NOTE | 2020-06-24 17:28 | Infectious Diseases Prog Note ---
Assessment/Plan Assessment/Plan ASSESSMENT AND PLAN: 1. covid-19 virus infection with pna, ? CAP, hypoxia - dexamethasone and remdesivir - azithromycin and ceftriaxone - monitor hypoxia, labs and chest x-ray 2. Syncope. Workup per Primary and Cardiology. 3. Diabetes. 4. Hypertension. 5. Blood pressure and blood sugar treatment per primary care team. 6. Dyslipidemia. 7. Asthma. 8. GERD. 9. Gout. 10. Continue treatment per primary consultants. 11. Allergies to sulfamethoxazole. 12. Social history is negative. 13. Family history is noncontributory. 14. MAR is noted. 15. Case discussed with RN. Subjective Constitutional: Reports: fatigue; Denies: fever HEENT: Reports: congestion - mild Respiratory: Reports: shortness of breath - mild Cardiovascular: Denies: chest pain Gastrointestinal/Abdominal: Denies: nausea, vomiting, diarrhea Genitourinary: Reports: other - no mark ; Denies: dysuria Neurologic: Denies: headache Psychiatric: Denies: depression Skin: Denies: rash Hematologic: Denies: bleeding Musculoskeletal: Denies: pain Allergies: Coded Allergies: SULFAMETHOXAZOLE (Verified Allergy, Unknown, 12/30/19) Objective Last 24 Hour Vital Signs Date Time Temp Pulse Resp B/P (MAP) Pulse Ox O2 Delivery O2 Flow Rate FiO2 06/24/20 16:00 97.1 86 17 130/69 (89) 95 06/24/20 12:00 98.2 76 20 120/73 (89) 98 06/24/20 09:00 Room Air 06/24/20 08:00 98.3 69 20 121/77 (92) 97 06/24/20 04:00 98.2 79 20 98/44 (62) 96 06/24/20 00:00 99.9 88 16 100/65 (77) 98 06/23/20 21:00 Room Air 06/23/20 20:00 97.4 104 20 103/55 (71) 99 Height (Feet): 5 Height (Inches): 1.00 Weight (Pounds): 155 General Appearance: no acute distress HEENT: normocephalic, atraumatic Respiratory/Chest: crackles/rales, rhonchi - bilaterally Cardiovascular: normal rate, regular rhythm, no gallop/murmur Abdomen: normal bowel sounds, soft, non tender, no organomegaly Genitourinary: other - no mark Extremities: no cyanosis Skin: no rash Neurologic/Psychiatric: carrier driver II-XII grossly normal, abnormal gait, oriented x 3, responsive Lymphatic: no neck adenopathy Musculoskeletal: no effusion Chest x-ray - 06/24/20 - Procedure: XRAY Chest 1v Indication: Reason For Exam: SOB Technique: One view of the chest Comparison: 06/21/2020 Findings: Interim development of streaky right perihilar and left mid to lower lung perihilar and peripheral infiltrates. Normal heart size and pleural spaces remain clear Impression: New bilateral infiltrates, likely multifocal pneumonia, appearance nonspecific as regards etiology Microbiology Date/Time Source Procedure Growth Status 06/21/20 20:00 Nasopharynx SARS-CoV-2 RdRp Gene Assay - Final Complete Microbiology Date/Time Source Procedure Growth Status 06/21/20 20:00 Nasopharynx SARS-CoV-2 RdRp Gene Assay - Final Complete Laboratory Tests Test 06/23/20 22:19 06/24/20 04:45 06/24/20 04:57 POC Whole Blood Glucose 285 MG/DL (74-106) H 288 MG/DL (74-106) H White Blood Count 8.8 K/UL (4.8-10.8) Red Blood Count 5.43 M/UL (4.70-6.10) Hemoglobin 16.6 G/DL (14.2-18.0) Hematocrit 48.4 % (42.0-52.0) Mean Corpuscular Volume 89 FL (80-99) Mean Corpuscular Hemoglobin 30.6 PG (27.0-31.0) Mean Corpuscular Hemoglobin Concent 34.3 G/DL (32.0-36.0) Red Cell Distribution Width 12.6 % (11.6-14.8) Platelet Count 169 K/UL (150-450) Mean Platelet Volume 7.8 FL (6.5-10.1) Neutrophils (%) (Auto) % (45.0-75.0) Lymphocytes (%) (Auto) % (20.0-45.0) Monocytes (%) (Auto) % (1.0-10.0) Eosinophils (%) (Auto) % (0.0-3.0) Basophils (%) (Auto) % (0.0-2.0) Differential Total Cells Counted 100 Neutrophils % (Manual) 87 % (45-75) H Lymphocytes % (Manual) 8 % (20-45) L Monocytes % (Manual) 5 % (1-10) Eosinophils % (Manual) 0 % (0-3) Basophils % (Manual) 0 % (0-2) Band Neutrophils 0 % (0-8) Platelet Estimate Adequate Platelet Morphology Normal Red Blood Cell Morphology Normal Sodium Level 140 MMOL/L (136-145) Potassium Level 3.8 MMOL/L (3.5-5.1) Chloride Level 106 MMOL/L (98-107) Carbon Dioxide Level 23 MMOL/L (21-32) Anion Gap 11 mmol/L (5-15) Blood Urea Nitrogen 14 mg/dL (7-18) Creatinine 1.1 MG/DL (0.55-1.30) Estimat Glomerular Filtration Rate > 60 mL/min (>60) Glucose Level 285 MG/DL (74-106) H Calcium Level 8.6 MG/DL (8.5-10.1) C-Reactive Protein, Quantitative 17.4 mg/dL (0.00-0.90) H Current Medications Medications (Trade) Dose Ordered Sig/Judith Route PRN Reason Start Time Stop Time Status Last Admin Dose Admin Acetaminophen (Tylenol) 650 mg Q4H PRN ORAL Temp >100.5 06/22/20 11:15 07/22/20 11:14 Albuterol Sulfate (Proventil MDI) 2 puff Q4H PRN INH Shortness of Breath 06/22/20 11:15 09/20/20 11:14 Dexamethasone Sodium Phosphate (Decadron 10mg/ ml Inj) 6 mg DAILY IV 06/23/20 17:15 07/02/20 09:01 06/24/20 09:21 Dextrose (Dextrose 50%) 25 ml Q30M PRN IV Hypoglycemia 06/22/20 11:30 09/20/20 11:29 Dextrose (Dextrose 50%) 50 ml Q30M PRN IV Hypoglycemia 06/22/20 11:30 09/20/20 11:29 Enoxaparin Sodium (Lovenox) 40 mg Q24H SUBQ 06/22/20 17:00 09/20/20 16:59 06/24/20 16:19 Famotidine (Pepcid) 40 mg DAILY ORAL 06/23/20 09:00 09/21/20 08:59 06/24/20 09:21 Guaifenesin/ Dextromethorphan (Robitussin DM Syrup) 10 ml Q4H PRN ORAL For Cough 06/23/20 17:19 09/21/20 17:18 06/23/20 23:02 Insulin Aspart (NovoLOG) BEFORE MEALS AND HS SUBQ 06/22/20 11:30 09/20/20 11:29 06/24/20 16:28 Insulin Detemir (Levemir) 10 units Q24H SUBQ 06/24/20 11:30 09/22/20 11:29 06/24/20 12:08 Metoclopramide HCl (Reglan) 10 mg Q6H PRN IVP Nausea & Vomiting 06/22/20 11:15 07/22/20 11:14 06/24/20 11:49 Ondansetron HCl (Zofran) 4 mg Q4H PRN IVP Nausea & Vomiting 06/22/20 22:15 07/22/20 22:14 06/23/20 16:18 Remdesivir 100 mg/ Sodium Chloride 250 ml @ 250 mls/hr Q24H IV 06/25/20 16:00 06/28/20 16:59 Remdesivir 200 mg/ Sodium Chloride 250 ml @ 125 mls/hr ONCE IV 06/24/20 16:00 06/24/20 17:59 06/24/20 16:17 Sodium Chloride 1,000 ml @ 75 mls/hr [id number] IV 06/22/20 11:15 07/22/20 11:14 06/24/20 16:18 Tamsulosin HCl (Flomax) 0.4 mg DAILY ORAL 06/23/20 09:00 07/23/20 08:59 06/24/20 09:21 Sidra Lowry MD Jun 24, 2020 17:28
[2020-06-24] MEDS: cefTRIAXone 1 GM in D5W 50 ML IVPB SCH (18:34)
--- NOTE | 2020-06-24 19:35 | NUR ---
NURSE HAND-OFF: Important Events on Shift:XRAY FOR CHEST DONE, ANTI-BIOTICS GIVEN; REGAL FOR NAUSEA GIVEN Patient Status: [STABLE Pending Orders: [BMP,CBC,CMP,C-REACTIVE,BILIRUBIN] Pending Results/Labs:[] Pending MD notification:[] Latest Vital Signs: Temperature 97.1 , Pulse 86 , B/P 130 /69 , Respiratory Rate 17 , O2 SAT 95 , Room Air, O2 Flow Rate . Vital Sign Comment: [] Latest Bey Fall Score: 45 Fall Risk: High Risk Safety Measures: Call light Within Reach, Bed Alarm , Side Rails Side Rails x2, Bed position Low and Locked. Fall Precautions: Yellow Socks Door Sign Patient Fall Education Report given to [].
--- NOTE | 2020-06-24 19:44 | NUR ---
HAND-OFF: Report given to IVELISSE Coyle.
[2020-06-24 20:00] VITALS: BP 114/64
--- NOTE | 2020-06-24 20:54 | NUR ---
NURSE NOTES: Pt is in bed, awake and verbal. N/C 2L. NS running at 75ml/hr. No acute distress noted.
[2020-06-24] MEDS: guaiFENesin /DM 10ml syrup ORAL PRN (22:35)
[2020-06-25] VITALS: BP 99/65
[2020-06-25 04:00] VITALS: BP 98/60
[2020-06-25] MEDS: NovoLOG Insulin Flexpen SUBQ SCH ×4 (06:28→21:31)
--- NOTE | 2020-06-25 07:30 | NUR ---
NURSE HAND-OFF: Important Events on Shift:[] Patient Status: [Stable] Diet: [] Pending Orders: [] Pending Results/Labs:[] Pending MD notification:[] Latest Vital Signs: Temperature 97.9 , Pulse 83 , B/P 98 /60 , Respiratory Rate 18 , O2 SAT 98 , Room Air, O2 Flow Rate . Vital Sign Comment: [] Latest Bey Fall Score: 45 Fall Risk: High Risk Safety Measures: Call light Within Reach, Bed Alarm , Side Rails Side Rails x2, Bed position Low and Locked. Fall Precautions: Yellow Socks Door Sign Patient Fall Education Report given to [ claudette Benjamin RN].
[2020-06-25 07:45] LABS: HEMATOCRIT 49.3 % (42.0-52.0); HEMOGLOBIN 16.3 G/DL (14.2-18.0); MEAN CORPUSCULAR VOLUME 92 FL (80-99); PLATELET COUNT 199 K/UL (150-450); RED BLOOD COUNT 5.38 M/UL (4.70-6.10); RED CELL DISTRIBUTION WIDTH 11.8 % (11.6-14.8); WHITE BLOOD COUNT 18.1 K/UL (4.8-10.8)
[2020-06-25 08:00] VITALS: BP 97/63
--- NOTE | 2020-06-25 08:19 | NUR ---
NURSE NOTES: Received report from Aftab RN. Patient is awake and oriented, in no distress, denies SOB at this time, patient reports he has intermittent episodes of SOB, on 2L NC. IV intact, patent, running IV fluids per order. Updated on plan of care. In COVID isolation. Side rails upx2, bed low and locked, call light within reach.
[2020-06-25] MEDS: Tamsulosin 0.4mg cap ORAL SCH (08:27)
[2020-06-25] MEDS: Azithromycin 250mg tab ORAL SCH (08:27)
[2020-06-25] MEDS: dexAMETHasone 10mg/ml Inj IV SCH (08:28)
[2020-06-25 08:38] LABS: ALANINE AMINOTRANSFERASE 23 U/L (12-78); ALBUMIN 2.5 G/DL (3.4-5.0); ALBUMIN/GLOBULIN RATIO 0.6 (1.0-2.7); ALKALINE PHOSPHATASE 85 U/L (46-116); ANION GAP 8 mmol/L (5-15); ASPARTATE AMINO TRANSFERASE 19 U/L (15-37); BILIRUBIN,TOTAL 0.4 MG/DL (0.2-1.0); BLOOD UREA NITROGEN 16 mg/dL (7-18); CALCIUM 8.3 MG/DL (8.5-10.1); CARBON DIOXIDE 25 MMOL/L (21-32); CHLORIDE 107 MMOL/L (98-107); CREATININE 0.9 MG/DL (0.55-1.30); POTASSIUM 3.7 MMOL/L (3.5-5.1); SODIUM 140 MMOL/L (136-145)
--- NOTE | 2020-06-25 09:36 | Pulmonology Progress Note ---
Subjective Constitutional: Reports: fatigue; Denies: fever Gastrointestinal/Abdominal: Denies: nausea, vomiting, diarrhea Psychiatric: Denies: depression Skin: Denies: rash Musculoskeletal: Denies: pain Allergies: Coded Allergies: SULFAMETHOXAZOLE (Verified Allergy, Unknown, 12/30/19) Subjective now hypoxic on O2 via NC, no resp distress started on steroids 06/23 started on Remdesivir 06/24 no fevers, leukocytosis today 18.1 BP remains low less dizzy, no chest pain Objective Last 24 Hour Vital Signs Date Time Temp Pulse Resp B/P (MAP) Pulse Ox O2 Delivery O2 Flow Rate FiO2 06/25/20 08:00 97.2 93 20 97/63 (74) 96 06/25/20 04:00 97.9 83 18 98/60 (73) 98 06/25/20 00:00 97.3 90 18 99/65 (76) 98 06/24/20 21:00 Room Air 06/24/20 20:00 97.7 89 16 114/64 (81) 95 06/24/20 16:00 97.1 86 17 130/69 (89) 95 06/24/20 12:00 98.2 76 20 120/73 (89) 98 Intake and Output 06/24/20 06/25/20 19:00 07:00 Intake Total 1875 ml 1000 ml Output Total 1400 ml Balance 475 ml 1000 ml Intake Oral 800 ml IV Total 1075 ml 1000 ml Output Urine Total 1400 ml # Voids 4 3 Objective General Appearance: no apparent distress, alert , oriented x3 Lines, tubes and drains: peripheral HEENT: normocephalic, atraumatic, anicteric, O2 via NC Neck: non-tender, supple Respiratory/Chest: chest wall non-tender, lungs clear, no respiratory distress Cardiovascular/Chest: normal rate, regular rhythm Abdomen: normal bowel sounds, non tender, soft Extremities: normal range of motion, non-tender, no calf tenderness, normal capillary refill Skin Exam: warm/dry Neurologic: no motor/sensory deficits, alert, oriented x 3, responsive, normal mood/affect Lymphatic: anterior cervical Musculoskeletal: normal muscle bulk Laboratory Tests 06/24/20 22:28: POC Whole Blood Glucose 283H 06/25/20 05:30: White Blood Count 18.1#H, Red Blood Count 5.38, Hemoglobin 16.3, Hematocrit 49.3, Mean Corpuscular Volume 92, Mean Corpuscular Hemoglobin 30.2, Mean Corpuscular Hemoglobin Concent 33.0, Red Cell Distribution Width 11.8, Platelet Count 199, Mean Platelet Volume 7.7, Neutrophils (%) (Auto) , Lymphocytes (%) (Auto) , Monocytes (%) (Auto) , Eosinophils (%) (Auto) , Basophils (%) (Auto) , Neutrophils % (Manual) [Pending], Lymphocytes % (Manual) [Pending], Platelet Estimate [Pending], Platelet Morphology [Pending], Sodium Level 140, Potassium Level 3.7, Chloride Level 107, Carbon Dioxide Level 25, Anion Gap 8, Blood Urea Nitrogen 16, Creatinine 0.9, Estimat Glomerular Filtration Rate > 60, Glucose Level 193H, Calcium Level 8.3L, Total Bilirubin 0.4, Direct Bilirubin 0.2, Aspartate Amino Transf (AST/SGOT) 19, Alanine Aminotransferase (ALT/SGPT) 23, Alkaline Phosphatase 85, C-Reactive Protein, Quantitative 11.9H, Total Protein 6.6, Albumin 2.5L, Globulin 4.1, Albumin/Globulin Ratio 0.6L 06/25/20 05:33: POC Whole Blood Glucose 190H Current Medications Medications (Trade) Dose Ordered Sig/Judith Route PRN Reason Start Time Stop Time Status Last Admin Dose Admin Acetaminophen (Tylenol) 650 mg Q4H PRN ORAL Temp >100.5 06/22/20 11:15 07/22/20 11:14 Albuterol Sulfate (Proventil MDI) 2 puff Q4H PRN INH Shortness of Breath 06/22/20 11:15 09/20/20 11:14 Azithromycin (Zithromax) 500 mg DAILY ORAL 06/25/20 09:00 07/02/20 08:59 06/25/20 08:27 Ceftriaxone Sodium 1 gm/ Dextrose 50 ml @ 100 mls/hr Q24H IVPB 06/24/20 18:00 07/01/20 17:59 06/24/20 18:34 Dexamethasone Sodium Phosphate (Decadron 10mg/ ml Inj) 6 mg DAILY IV 06/23/20 17:15 07/02/20 09:01 06/25/20 08:28 Dextrose (Dextrose 50%) 25 ml Q30M PRN IV Hypoglycemia 06/22/20 11:30 09/20/20 11:29 Dextrose (Dextrose 50%) 50 ml Q30M PRN IV Hypoglycemia 06/22/20 11:30 09/20/20 11:29 Enoxaparin Sodium (Lovenox) 40 mg Q24H SUBQ 06/22/20 17:00 09/20/20 16:59 06/24/20 16:19 Famotidine (Pepcid) 40 mg DAILY ORAL 06/23/20 09:00 09/21/20 08:59 06/25/20 08:27 Guaifenesin/ Dextromethorphan (Robitussin DM Syrup) 10 ml Q4H PRN ORAL For Cough 06/23/20 17:19 09/21/20 17:18 06/24/20 22:35 Insulin Aspart (NovoLOG) BEFORE MEALS AND HS SUBQ 06/22/20 11:30 09/20/20 11:29 06/25/20 06:28 Insulin Detemir (Levemir) 10 units Q24H SUBQ 06/24/20 11:30 09/22/20 11:29 06/24/20 12:08 Metoclopramide HCl (Reglan) 10 mg Q6H PRN IVP Nausea & Vomiting 06/22/20 11:15 07/22/20 11:14 06/24/20 22:35 Ondansetron HCl (Zofran) 4 mg Q4H PRN IVP Nausea & Vomiting 06/22/20 22:15 07/22/20 22:14 06/23/20 16:18 Remdesivir 100 mg/ Sodium Chloride 250 ml @ 250 mls/hr Q24H IV 06/25/20 16:00 06/28/20 16:59 Sodium Chloride 1,000 ml @ 75 mls/hr [id number] IV 06/22/20 11:15 07/22/20 11:14 06/25/20 05:55 Tamsulosin HCl (Flomax) 0.4 mg DAILY ORAL 06/23/20 09:00 07/23/20 08:59 06/25/20 08:27 Assessment/Plan Assessment/Plan ASSESSMENT COVID 19 infection Dizziness, near syncope with associated nonbloody nonbilious emesis Hypoxia Hypokalemia Hypotension currently Hx of HTN HLD IDDM Gout BPH PLAN OF CARE MS floor CT head negative serial troponin NGT, ECG non ischemic, ruled out for acute ID ECHO with pEF, no evidence of WMA cardio eval appreciated orthostatic VS-never done dizziness may be due to COVID infection , in addition may have some dehydration due to associated emesis on IV hydration, continue given low BP O2 titrate to keep sat > 92 Albuterol MDI prn a/c with Lovenox on steroids Day 3, given current hypoxia, closely monitor resp status and oxygenation started Remdesivivr 06/24, Day 2 fup with inflammatory markers, CRP down 11.9 CXR 06/24 with findings c/w multifocal PNA started on abx 06/24 by ID initial CXR stable a/tussive prn GI prophylaxis BS management anion gap WNL, no evidence of DKA HgA1c 9.7, not at goal off metformin and on LA Levemir , increase dose today and continue with SSI need more aggressive BS control with steroids a/emetic prn diabetic diet as tolerated , no emesis, less nausea BP management, currently hold off all anti HTN continue Flomax fall precautions supportive care case discussed and evaluated by supervising physician Angie Leo NP Jun 25, 2020 09:36
[2020-06-25 12:00] VITALS: BP 98/64
[2020-06-25] MEDS: Levemir Flexpen SUBQ SCH (12:00)
[2020-06-25 16:00] VITALS: BP 101/72
[2020-06-25] MEDS: Maintenance Dose:Remdesivir 100mg/NS 230ml x 4 Doses IV SCH ×2 (16:06)
--- NOTE | 2020-06-25 16:10 | NUR ---
CASE MANAGEMENT:REVIEW SI;COVID PNEUMONIA 98.2 93 20 97/63 96% 2L NC WBC 18.1 BG 239 CRP 11.9 ALB 2.5 IS;PEPCID PO QD LOVENOX SQ QD REGLAN IV Q6 PRN INSULIN NOVOLOG SQ QID REMDESIVIR IV DECADRON IV IVF NS @ 75 ML/HR ZITHROMAX PO QD ROCEPHIN IV QD MED SURG STATUS DCP;FROM HOME
[2020-06-25] MEDS: Enoxaparin 40mg Inj SUBQ SCH (17:08)
[2020-06-25] MEDS: cefTRIAXone 1 GM in D5W 50 ML IVPB SCH (17:10)
--- NOTE | 2020-06-25 19:17 | NUR ---
NURSE HAND-OFF: Important Events on Shift: oxygen therapy, on Remdesivir. Patient Status: stable Diet: Reg Pending Orders: n/a Pending Results/Labs: n/a Pending MD notification: N/A Latest Vital Signs: Temperature 98.1 , Pulse 79 , B/P 101 /72 , Respiratory Rate 20 , O2 SAT 97 , NASAL CANNULA Vital Sign Comment: VS STABLE Latest Bey Fall Score: 35 Fall Risk: Medium Risk Safety Measures: Call light Within Reach, Bed Alarm , Side Rails Side Rails x2, Bed position Low and Locked. Fall Precautions: Yellow Socks Door Sign Patient Fall Education Report given to RILEY OVIEDO.
--- NOTE | 2020-06-25 19:20 | NUR ---
NURSE NOTES: Patient is awake, alert and oriented, in no distress, denies SOB at this time, patient reports he has intermittent episodes of SOB, on 2L NC. IV intact, patent, running IV fluids per order. Updated on plan of care. On COVID isolation. Side rails upx2, bed low and locked, call light within reach.
--- NOTE | 2020-06-25 19:22 | Cardiac Electrophysiology PN ---
Assessment/Plan Assessment/Plan 1. Shortness of breath. Ruled out for myocardial infarction. Echo EF 60% 2. COVID pneumonia, in isolation.On steroid and remdesivir and antibiotic. 3. Diabetes, on metformin and insulin. 4. Hyperlipidemia. 5. HTN On p.r.n. clonidine 6. Vomiting, could be due to COVID infection. Subjective Subjective In covid isolation in NAD on RA Objective Last 24 Hour Vital Signs Date Time Temp Pulse Resp B/P (MAP) Pulse Ox O2 Delivery O2 Flow Rate FiO2 06/25/20 16:00 98.1 79 20 101/72 (82) 97 06/25/20 12:00 98.2 82 20 98/64 (75) 99 06/25/20 09:00 Nasal Cannula 2.0 06/25/20 08:00 97.2 93 20 97/63 (74) 96 06/25/20 04:00 97.9 83 18 98/60 (73) 98 06/25/20 00:00 97.3 90 18 99/65 (76) 98 06/24/20 21:00 Room Air 06/24/20 20:00 97.7 89 16 114/64 (81) 95 Intake and Output 06/24/20 06/25/20 19:00 07:00 Intake Total 1875 ml 1000 ml Output Total 1400 ml Balance 475 ml 1000 ml Intake Oral 800 ml IV Total 1075 ml 1000 ml Output Urine Total 1400 ml # Voids 4 3 Laboratory Tests Test 06/24/20 22:28 06/25/20 05:30 06/25/20 05:33 06/25/20 11:55 POC Whole Blood Glucose 283 MG/DL (74-106) H 190 MG/DL (74-106) H 239 MG/DL (74-106) H White Blood Count 18.1 K/UL (4.8-10.8) #H Red Blood Count 5.38 M/UL (4.70-6.10) Hemoglobin 16.3 G/DL (14.2-18.0) Hematocrit 49.3 % (42.0-52.0) Mean Corpuscular Volume 92 FL (80-99) Mean Corpuscular Hemoglobin 30.2 PG (27.0-31.0) Mean Corpuscular Hemoglobin Concent 33.0 G/DL (32.0-36.0) Red Cell Distribution Width 11.8 % (11.6-14.8) Platelet Count 199 K/UL (150-450) Mean Platelet Volume 7.7 FL (6.5-10.1) Neutrophils (%) (Auto) % (45.0-75.0) Lymphocytes (%) (Auto) % (20.0-45.0) Monocytes (%) (Auto) % (1.0-10.0) Eosinophils (%) (Auto) % (0.0-3.0) Basophils (%) (Auto) % (0.0-2.0) Differential Total Cells Counted 100 Neutrophils % (Manual) 85 % (45-75) H Lymphocytes % (Manual) 6 % (20-45) L Monocytes % (Manual) 4 % (1-10) Eosinophils % (Manual) 0 % (0-3) Basophils % (Manual) 0 % (0-2) Band Neutrophils 5 % (0-8) Platelet Estimate Adequate Platelet Morphology Normal Red Blood Cell Morphology Normal Sodium Level 140 MMOL/L (136-145) Potassium Level 3.7 MMOL/L (3.5-5.1) Chloride Level 107 MMOL/L (98-107) Carbon Dioxide Level 25 MMOL/L (21-32) Anion Gap 8 mmol/L (5-15) Blood Urea Nitrogen 16 mg/dL (7-18) Creatinine 0.9 MG/DL (0.55-1.30) Estimat Glomerular Filtration Rate > 60 mL/min (>60) Glucose Level 193 MG/DL (74-106) H Calcium Level 8.3 MG/DL (8.5-10.1) L Total Bilirubin 0.4 MG/DL (0.2-1.0) Direct Bilirubin 0.2 MG/DL (0.0-0.3) Aspartate Amino Transf (AST/SGOT) 19 U/L (15-37) Alanine Aminotransferase (ALT/SGPT) 23 U/L (12-78) Alkaline Phosphatase 85 U/L (46-116) C-Reactive Protein, Quantitative 11.9 mg/dL (0.00-0.90) H Total Protein 6.6 G/DL (6.4-8.2) Albumin 2.5 G/DL (3.4-5.0) L Globulin 4.1 g/dL Albumin/Globulin Ratio 0.6 (1.0-2.7) L Objective HEAD AND NECK: Shows no JVD. LUNGS: Coarse rhonchi. CARDIOVASCULAR: Shows regular S1 and S2 with no gallop. ABDOMEN: Soft. EXTREMITIES: No pitting edema. Néstor Riley MD Jun 25, 2020 19:22
[2020-06-25 20:00] VITALS: BP 96/55
[2020-06-26] VITALS: BP 112/65
[2020-06-26 04:00] VITALS: BP 120/63
[2020-06-26 06:01] LABS: BASOPHILS % (AUTO) 0.5 % (0.0-2.0); HEMOGLOBIN 15.5 G/DL (14.2-18.0); LYMPHOCYTES % (AUTO) 9.3 % (20.0-45.0); MEAN CORPUSCULAR VOLUME 94 FL (80-99); MONOCYTES % (AUTO) 6.8 % (1.0-10.0); NEUTROPHILS % (AUTO) 83.4 % (45.0-75.0); PLATELET COUNT 241 K/UL (150-450); RED CELL DISTRIBUTION WIDTH 12.5 % (11.6-14.8); WHITE BLOOD COUNT 14.8 K/UL (4.8-10.8)
[2020-06-26 06:21] LABS: ALANINE AMINOTRANSFERASE 18 U/L (12-78); ALBUMIN 2.4 G/DL (3.4-5.0); ALBUMIN/GLOBULIN RATIO 0.6 (1.0-2.7); ALKALINE PHOSPHATASE 79 U/L (46-116); ANION GAP 10 mmol/L (5-15); ASPARTATE AMINO TRANSFERASE 15 U/L (15-37); BILIRUBIN,DIRECT 0.2 MG/DL (0.0-0.3); BILIRUBIN,TOTAL 0.4 MG/DL (0.2-1.0); BLOOD UREA NITROGEN 19 mg/dL (7-18); CALCIUM 8.2 MG/DL (8.5-10.1); CARBON DIOXIDE 21 MMOL/L (21-32); CHLORIDE 108 MMOL/L (98-107); CREATININE 0.8 MG/DL (0.55-1.30); POTASSIUM 3.5 MMOL/L (3.5-5.1); SODIUM 139 MMOL/L (136-145)
[2020-06-26] MEDS: NovoLOG Insulin Flexpen SUBQ SCH ×4 (06:30→21:44)
[2020-06-26 08:00] VITALS: BP 111/71
--- NOTE | 2020-06-26 08:16 | NUR ---
NURSE NOTES: Patient alert x4; on Nasal Cannula 2 liters, no sing of distress and shortness of breath; no sing of chest pain; IV RAC NS 75cc running; Urinal within reach; side rails up x2, breaks engaged, bed at lowest position; call light within reach; will keep monitoring.
--- NOTE | 2020-06-26 08:20 | NUR ---
NURSE HAND-OFF: Important Events on Shift: oxygen therapy, on Remdesivir. Patient Status: stable Diet: Regular Pending Orders: cbc bmp pending results Latest Vital Signs: Temperature 98.1 , Pulse 79 , B/P 101 /72 , Respiratory Rate 20 , O2 SAT 97 , NASAL CANNULA Vital Sign Comment: VS STABLE Latest Bey Fall Score: 35 Fall Risk: Medium Risk Safety Measures: Call light Within Reach, Bed Alarm , Side Rails Side Rails x2, Bed position Low and Locked. Fall Precautions: Yellow Socks Door Sign Patient Fall Education Report given to Lynn Galan RN
[2020-06-26] MEDS: Azithromycin 250mg tab ORAL SCH (08:46)
[2020-06-26] MEDS: dexAMETHasone 10mg/ml Inj IV SCH (08:46)
[2020-06-26] MEDS: Tamsulosin 0.4mg cap ORAL SCH (08:46)
--- NOTE | 2020-06-26 10:38 | Pulmonology Progress Note ---
Subjective Constitutional: Reports: fatigue; Denies: fever Gastrointestinal/Abdominal: Denies: nausea, vomiting, diarrhea Psychiatric: Denies: depression Skin: Denies: rash Musculoskeletal: Denies: pain Allergies: Coded Allergies: SULFAMETHOXAZOLE (Verified Allergy, Unknown, 12/30/19) Subjective on O2 via NC, no resp distress no fevers, leukocytosis trending down BP better less dizzy, chest discomfort with deep breathing Objective Last 24 Hour Vital Signs Date Time Temp Pulse Resp B/P (MAP) Pulse Ox O2 Delivery O2 Flow Rate FiO2 06/26/20 08:00 98.0 77 20 111/71 (84) 94 06/26/20 04:00 97.4 81 18 120/63 (82) 94 06/26/20 00:00 97.8 72 18 112/65 (81) 97 06/25/20 21:00 Room Air 06/25/20 20:00 98.1 81 18 96/55 (69) 97 06/25/20 16:00 98.1 79 20 101/72 (82) 97 06/25/20 12:00 98.2 82 20 98/64 (75) 99 Intake and Output 06/25/20 06/26/20 19:00 07:00 Intake Total 1550 ml 360 ml Output Total 800 ml Balance 750 ml 360 ml Intake Oral 500 ml IV Total 1050 ml Other 360 ml Output Urine Total 800 ml # Voids 3 Objective General Appearance: no apparent distress, alert , oriented x3 Lines, tubes and drains: peripheral HEENT: normocephalic, atraumatic, anicteric, O2 via NC Neck: non-tender, supple Respiratory/Chest: chest wall non-tender, lungs clear, no respiratory distress Cardiovascular/Chest: normal rate, regular rhythm Abdomen: normal bowel sounds, non tender, soft Extremities: normal range of motion, non-tender, no calf tenderness, normal capillary refill Skin Exam: warm/dry Neurologic: no motor/sensory deficits, alert, oriented x 3, responsive, normal mood/affect Lymphatic: anterior cervical Musculoskeletal: normal muscle bulk Laboratory Tests 06/25/20 11:55: POC Whole Blood Glucose 239H 06/25/20 21:29: POC Whole Blood Glucose 322H 06/26/20 04:50: White Blood Count 14.8H, Red Blood Count 4.90, Hemoglobin 15.5, Hematocrit 46.0, Mean Corpuscular Volume 94, Mean Corpuscular Hemoglobin 31.7H, Mean Corpuscular Hemoglobin Concent 33.7, Red Cell Distribution Width 12.5, Platelet Count 241, Mean Platelet Volume 7.6, Neutrophils (%) (Auto) 83.4H, Lymphocytes (%) (Auto) 9.3L, Monocytes (%) (Auto) 6.8, Eosinophils (%) (Auto) 0.0, Basophils (%) (Auto) 0.5, Sodium Level 139, Potassium Level 3.5, Chloride Level 108H, Carbon Dioxide Level 21, Anion Gap 10, Blood Urea Nitrogen 19H, Creatinine 0.8, Estimat Glomerular Filtration Rate > 60, Glucose Level 179H, Calcium Level 8.2L, Total Bilirubin 0.4, Direct Bilirubin 0.2, Aspartate Amino Transf (AST/SGOT) 15, Alanine Aminotransferase (ALT/SGPT) 18, Alkaline Phosphatase 79, Total Protein 6.3L, Albumin 2.4L, Globulin 3.9, Albumin/Globulin Ratio 0.6L Current Medications Medications (Trade) Dose Ordered Sig/Judith Route PRN Reason Start Time Stop Time Status Last Admin Dose Admin Acetaminophen (Tylenol) 650 mg Q4H PRN ORAL Temp >100.5 06/22/20 11:15 07/22/20 11:14 Albuterol Sulfate (Proventil MDI) 2 puff Q4H PRN INH Shortness of Breath 06/22/20 11:15 09/20/20 11:14 Azithromycin (Zithromax) 500 mg DAILY ORAL 06/25/20 09:00 07/02/20 08:59 06/26/20 08:46 Ceftriaxone Sodium 1 gm/ Dextrose 50 ml @ 100 mls/hr Q24H IVPB 06/24/20 18:00 07/01/20 17:59 06/25/20 17:10 Dexamethasone Sodium Phosphate (Decadron 10mg/ ml Inj) 6 mg DAILY IV 06/23/20 17:15 07/02/20 09:01 06/26/20 08:46 Dextrose (Dextrose 50%) 25 ml Q30M PRN IV Hypoglycemia 06/22/20 11:30 09/20/20 11:29 Dextrose (Dextrose 50%) 50 ml Q30M PRN IV Hypoglycemia 06/22/20 11:30 09/20/20 11:29 Enoxaparin Sodium (Lovenox) 40 mg Q24H SUBQ 06/22/20 17:00 09/20/20 16:59 06/25/20 17:08 Famotidine (Pepcid) 40 mg DAILY ORAL 06/23/20 09:00 09/21/20 08:59 06/26/20 08:47 Guaifenesin/ Dextromethorphan (Robitussin DM Syrup) 10 ml Q4H PRN ORAL For Cough 06/23/20 17:19 09/21/20 17:18 06/24/20 22:35 Insulin Aspart (NovoLOG) BEFORE MEALS AND HS SUBQ 06/22/20 11:30 09/20/20 11:29 06/25/20 21:31 Insulin Detemir (Levemir) 15 units Q24H SUBQ 06/25/20 11:30 09/22/20 11:29 06/25/20 12:00 Metoclopramide HCl (Reglan) 10 mg Q6H PRN IVP Nausea & Vomiting 06/22/20 11:15 07/22/20 11:14 06/24/20 22:35 Ondansetron HCl (Zofran) 4 mg Q4H PRN IVP Nausea & Vomiting 06/22/20 22:15 07/22/20 22:14 06/23/20 16:18 Remdesivir 100 mg/ Sodium Chloride 250 ml @ 250 mls/hr Q24H IV 06/25/20 16:00 06/28/20 16:59 06/25/20 16:06 Sodium Chloride 1,000 ml @ 75 mls/hr [id number] IV 06/22/20 11:15 07/22/20 11:14 06/26/20 08:47 Tamsulosin HCl (Flomax) 0.4 mg DAILY ORAL 06/23/20 09:00 07/23/20 08:59 06/26/20 08:46 Assessment/Plan Assessment/Plan ASSESSMENT COVID 19 pneumonia Dizziness, near syncope with associated nonbloody nonbilious emesis Hypoxia Hypokalemia Hypotension currently Hx of HTN HLD IDDM Gout BPH PLAN OF CARE MS floor CT head negative serial troponin NGT, ECG non ischemic, ruled out for acute IN ECHO with pEF, no evidence of WMA cardio eval appreciated orthostatic VS-never done dizziness may be due to COVID infection , in addition may have some dehydration due to associated emesis on IV hydration, continue , decrease rate given improved BP O2 titrate to keep sat > 92 Albuterol MDI prn a/c with Lovenox on steroids and Remdesivir D# 3 closely monitor resp status and oxygenation fup with inflammatory markers, CRP down 11.9 CXR 06/24 with findings c/w multifocal PNA started on abx 06/24 by ID initial CXR stable a/tussive prn GI prophylaxis BS management anion gap WNL, no evidence of DKA HgA1c 9.7, not at goal off metformin and on LA Levemir , increase dose today and continue with SSI need more aggressive BS control with steroids a/emetic prn diabetic diet as tolerated , no emesis, less nausea BP management, currently hold off all anti HTN continue Flomax fall precautions supportive care case discussed and evaluated by supervising physician Angie Leo NP Jun 26, 2020 10:38 Sid Borges MD Jun 26, 2020 20:49
[2020-06-26 12:00] VITALS: BP 104/68
[2020-06-26] MEDS: Levemir Flexpen SUBQ SCH (12:01)
--- NOTE | 2020-06-26 14:21 | Diagnostic Imaging Report ---
EXAM: XR Chest, 1 View CLINICAL HISTORY: INFECT TECHNIQUE: Frontal view of the chest. COMPARISON: No relevant prior studies available. FINDINGS: Lungs: Patchy pulmonary infiltrates, most confluent in the left lung base. Pleural space: Unremarkable. No pneumothorax. Heart: Unremarkable. No cardiomegaly. Mediastinum: Unremarkable. Bones/joints: No acute fracture. Other findings: 06/26/20 at 1322 IMPRESSION: Patchy pulmonary infiltrates, most confluent in the left lung base.
--- NOTE | 2020-06-26 14:59 | Cardiac Electrophysiology PN ---
Assessment/Plan Assessment/Plan 1. Shortness of breath. Ruled out for MA. Echo EF 60% 2. COVID pneumonia, in isolation. On steroid and remdesivir and antibiotic. 3. Diabetes, on metformin and insulin. 4. Hyperlipidemia. 5. HTN On p.r.n. clonidine 6. Vomiting, could be due to COVID infection. Subjective Subjective In covid isolation in NAD on RA Objective Last 24 Hour Vital Signs Date Time Temp Pulse Resp B/P (MAP) Pulse Ox O2 Delivery O2 Flow Rate FiO2 06/26/20 12:00 98.2 84 20 104/68 (80) 96 06/26/20 09:00 Room Air 06/26/20 08:00 98.0 77 20 111/71 (84) 94 06/26/20 04:00 97.4 81 18 120/63 (82) 94 06/26/20 00:00 97.8 72 18 112/65 (81) 97 06/25/20 21:00 Room Air 06/25/20 20:00 98.1 81 18 96/55 (69) 97 06/25/20 16:00 98.1 79 20 101/72 (82) 97 Intake and Output 06/25/20 06/26/20 19:00 07:00 Intake Total 1550 ml 435 ml Output Total 800 ml Balance 750 ml 435 ml Intake Oral 500 ml IV Total 1050 ml 75 ml Other 360 ml Output Urine Total 800 ml # Voids 3 Laboratory Tests Test 06/25/20 21:29 06/26/20 04:50 06/26/20 11:59 POC Whole Blood Glucose 322 MG/DL (74-106) H Pending White Blood Count 14.8 K/UL (4.8-10.8) H Red Blood Count 4.90 M/UL (4.70-6.10) Hemoglobin 15.5 G/DL (14.2-18.0) Hematocrit 46.0 % (42.0-52.0) Mean Corpuscular Volume 94 FL (80-99) Mean Corpuscular Hemoglobin 31.7 PG (27.0-31.0) H Mean Corpuscular Hemoglobin Concent 33.7 G/DL (32.0-36.0) Red Cell Distribution Width 12.5 % (11.6-14.8) Platelet Count 241 K/UL (150-450) Mean Platelet Volume 7.6 FL (6.5-10.1) Neutrophils (%) (Auto) 83.4 % (45.0-75.0) H Lymphocytes (%) (Auto) 9.3 % (20.0-45.0) L Monocytes (%) (Auto) 6.8 % (1.0-10.0) Eosinophils (%) (Auto) 0.0 % (0.0-3.0) Basophils (%) (Auto) 0.5 % (0.0-2.0) Sodium Level 139 MMOL/L (136-145) Potassium Level 3.5 MMOL/L (3.5-5.1) Chloride Level 108 MMOL/L (98-107) H Carbon Dioxide Level 21 MMOL/L (21-32) Anion Gap 10 mmol/L (5-15) Blood Urea Nitrogen 19 mg/dL (7-18) H Creatinine 0.8 MG/DL (0.55-1.30) Estimat Glomerular Filtration Rate > 60 mL/min (>60) Glucose Level 179 MG/DL (74-106) H Calcium Level 8.2 MG/DL (8.5-10.1) L Total Bilirubin 0.4 MG/DL (0.2-1.0) Direct Bilirubin 0.2 MG/DL (0.0-0.3) Aspartate Amino Transf (AST/SGOT) 15 U/L (15-37) Alanine Aminotransferase (ALT/SGPT) 18 U/L (12-78) Alkaline Phosphatase 79 U/L (46-116) Total Protein 6.3 G/DL (6.4-8.2) L Albumin 2.4 G/DL (3.4-5.0) L Globulin 3.9 g/dL Albumin/Globulin Ratio 0.6 (1.0-2.7) L Objective HEAD AND NECK: Shows no JVD. LUNGS: Coarse rhonchi. CARDIOVASCULAR: Shows regular S1 and S2 with no gallop. ABDOMEN: Soft. EXTREMITIES: No pitting edema. Néstor Riley MD Jun 26, 2020 14:59
[2020-06-26] MEDS: Maintenance Dose:Remdesivir 100mg/NS 230ml x 4 Doses IV SCH ×2 (15:53)
[2020-06-26 16:00] VITALS: BP 96/62
--- NOTE | 2020-06-26 16:54 | Infectious Diseases Prog Note ---
Assessment/Plan Assessment/Plan ASSESSMENT AND PLAN: 1. covid-19 virus infection with pna, ? CAP, hypoxia leukocytosis likely secondary to steroids - dexamethasone and remdesivir - azithromycin and ceftriaxone - monitor hypoxia, labs and chest x-ray - clinically better, patient feels better, sats stable 2. Syncope. Workup per Primary and Cardiology. 3. Diabetes. 4. Hypertension. 5. Blood pressure and blood sugar treatment per primary care team. 6. Dyslipidemia. 7. Asthma. 8. GERD. 9. Gout. 10. Continue treatment per primary consultants. 11. Allergies to sulfamethoxazole. 12. Social history is negative. 13. Family history is noncontributory. 14. MAR is noted. 15. Case discussed with RN. Subjective Constitutional: Reports: other - less sob, feels better, on O2; Denies: fever HEENT: Reports: congestion - less Respiratory: Reports: shortness of breath - less Cardiovascular: Denies: chest pain Gastrointestinal/Abdominal: Denies: nausea, vomiting Genitourinary: Denies: dysuria, hematuria, frequency Neurologic: Denies: headache Psychiatric: Denies: depression Skin: Denies: rash Hematologic: Denies: bleeding Musculoskeletal: Denies: pain Allergies: Coded Allergies: SULFAMETHOXAZOLE (Verified Allergy, Unknown, 12/30/19) Objective Last 24 Hour Vital Signs Date Time Temp Pulse Resp B/P (MAP) Pulse Ox O2 Delivery O2 Flow Rate FiO2 06/26/20 16:00 98.4 82 20 96/62 (73) 96 06/26/20 12:00 98.2 84 20 104/68 (80) 96 06/26/20 09:00 Room Air 06/26/20 08:00 98.0 77 20 111/71 (84) 94 06/26/20 04:00 97.4 81 18 120/63 (82) 94 06/26/20 00:00 97.8 72 18 112/65 (81) 97 06/25/20 21:00 Room Air 06/25/20 20:00 98.1 81 18 96/55 (69) 97 Height (Feet): 5 Height (Inches): 1.00 Weight (Pounds): 155 General Appearance: no acute distress HEENT: normocephalic, atraumatic, anicteric, mucous membranes moist Respiratory/Chest: crackles/rales, rhonchi - bilaterally Cardiovascular: normal rate, regular rhythm, no gallop/murmur Abdomen: normal bowel sounds, soft, non tender, no organomegaly, non distended Genitourinary: other - no mark Extremities: no cyanosis Skin: no rash Neurologic/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 Normal heart size and pleural spaces remain clear Impression: New bilateral infiltrates, likely multifocal pneumonia, appearance nonspecific as regards etiology Chest x-ray 06/26/20 - FINDINGS: Lungs: Patchy pulmonary infiltrates, most confluent in the left lung base. Pleural space: Unremarkable. No pneumothorax. Heart: Unremarkable. No cardiomegaly. Mediastinum: Unremarkable. Bones/joints: No acute fracture. Other findings: 06/26/20 at 1322 IMPRESSION: Patchy pulmonary infiltrates, most confluent in the left lung base. Microbiology Date/Time Source Procedure Growth Status 06/21/20 20:00 Nasopharynx SARS-CoV-2 RdRp Gene Assay - Final Complete Laboratory Tests Test 06/25/20 21:29 06/26/20 04:50 06/26/20 11:59 POC Whole Blood Glucose 322 MG/DL (74-106) H Pending White Blood Count 14.8 K/UL (4.8-10.8) H Red Blood Count 4.90 M/UL (4.70-6.10) Hemoglobin 15.5 G/DL (14.2-18.0) Hematocrit 46.0 % (42.0-52.0) Mean Corpuscular Volume 94 FL (80-99) Mean Corpuscular Hemoglobin 31.7 PG (27.0-31.0) H Mean Corpuscular Hemoglobin Concent 33.7 G/DL (32.0-36.0) Red Cell Distribution Width 12.5 % (11.6-14.8) Platelet Count 241 K/UL (150-450) Mean Platelet Volume 7.6 FL (6.5-10.1) Neutrophils (%) (Auto) 83.4 % (45.0-75.0) H Lymphocytes (%) (Auto) 9.3 % (20.0-45.0) L Monocytes (%) (Auto) 6.8 % (1.0-10.0) Eosinophils (%) (Auto) 0.0 % (0.0-3.0) Basophils (%) (Auto) 0.5 % (0.0-2.0) Sodium Level 139 MMOL/L (136-145) Potassium Level 3.5 MMOL/L (3.5-5.1) Chloride Level 108 MMOL/L (98-107) H Carbon Dioxide Level 21 MMOL/L (21-32) Anion Gap 10 mmol/L (5-15) Blood Urea Nitrogen 19 mg/dL (7-18) H Creatinine 0.8 MG/DL (0.55-1.30) Estimat Glomerular Filtration Rate > 60 mL/min (>60) Glucose Level 179 MG/DL (74-106) H Calcium Level 8.2 MG/DL (8.5-10.1) L Total Bilirubin 0.4 MG/DL (0.2-1.0) Direct Bilirubin 0.2 MG/DL (0.0-0.3) Aspartate Amino Transf (AST/SGOT) 15 U/L (15-37) Alanine Aminotransferase (ALT/SGPT) 18 U/L (12-78) Alkaline Phosphatase 79 U/L (46-116) Total Protein 6.3 G/DL (6.4-8.2) L Albumin 2.4 G/DL (3.4-5.0) L Globulin 3.9 g/dL Albumin/Globulin Ratio 0.6 (1.0-2.7) L Current Medications Medications (Trade) Dose Ordered Sig/Judith Route PRN Reason Start Time Stop Time Status Last Admin Dose Admin Acetaminophen (Tylenol) 650 mg Q4H PRN ORAL Temp >100.5 06/22/20 11:15 07/22/20 11:14 Albuterol Sulfate (Proventil MDI) 2 puff Q4H PRN INH Shortness of Breath 06/22/20 11:15 09/20/20 11:14 Azithromycin (Zithromax) 500 mg DAILY ORAL 06/25/20 09:00 07/02/20 08:59 06/26/20 08:46 Ceftriaxone Sodium 1 gm/ Dextrose 50 ml @ 100 mls/hr Q24H IVPB 06/24/20 18:00 07/01/20 17:59 06/25/20 17:10 Dexamethasone Sodium Phosphate (Decadron 10mg/ ml Inj) 6 mg DAILY IV 06/23/20 17:15 07/02/20 09:01 06/26/20 08:46 Dextrose (Dextrose 50%) 25 ml Q30M PRN IV Hypoglycemia 06/22/20 11:30 09/20/20 11:29 Dextrose (Dextrose 50%) 50 ml Q30M PRN IV Hypoglycemia 06/22/20 11:30 09/20/20 11:29 Enoxaparin Sodium (Lovenox) 40 mg Q24H SUBQ 06/22/20 17:00 09/20/20 16:59 06/25/20 17:08 Famotidine (Pepcid) 40 mg DAILY ORAL 06/23/20 09:00 09/21/20 08:59 06/26/20 08:47 Guaifenesin/ Dextromethorphan (Robitussin DM Syrup) 10 ml Q4H PRN ORAL For Cough 06/23/20 17:19 09/21/20 17:18 06/24/20 22:35 Insulin Aspart (NovoLOG) BEFORE MEALS AND HS SUBQ 06/22/20 11:30 09/20/20 11:29 06/26/20 12:01 Insulin Detemir (Levemir) 15 units Q24H SUBQ 06/25/20 11:30 09/22/20 11:29 06/26/20 12:01 Metoclopramide HCl (Reglan) 10 mg Q6H PRN IVP Nausea & Vomiting 06/22/20 11:15 07/22/20 11:14 06/24/20 22:35 Ondansetron HCl (Zofran) 4 mg Q4H PRN IVP Nausea & Vomiting 06/22/20 22:15 07/22/20 22:14 06/23/20 16:18 Remdesivir 100 mg/ Sodium Chloride 250 ml @ 250 mls/hr Q24H IV 06/25/20 16:00 06/28/20 16:59 06/26/20 15:53 Sodium Chloride 1,000 ml @ 50 mls/hr Q20H IV 06/22/20 11:15 07/22/20 11:14 06/26/20 08:47 Tamsulosin HCl (Flomax) 0.4 mg DAILY ORAL 06/23/20 09:00 07/23/20 08:59 06/26/20 08:46 Sidra Lowry MD Jun 26, 2020 16:54
[2020-06-26] MEDS: Enoxaparin 40mg Inj SUBQ SCH (17:03)
[2020-06-26] MEDS: cefTRIAXone 1 GM in D5W 50 ML IVPB SCH (17:04)
--- NOTE | 2020-06-26 17:27 | NUR ---
CASE MANAGEMENT: REVIEW 06/26/2020 SI:COVID PNA. HYPOKALEMIA. VS: T 98.4 HR 82 RR 20 B/P 96/62 SATS 96% ON RA LABS: WBC 14.8 CL 108 BUN 19 GLU 179 CA 8.2 IS:NS @ 50 ML/HR FLOMAX PO QD DECADRON IV QD AZITHROMYCIN PO QD INSULIN ASPART SUBQ AC/HS REMDESIVIR IV Q24H LEVEMIR SUBQ Q24H MED/SURG
--- NOTE | 2020-06-26 19:41 | NUR ---
HAND-OFF: Report given to Linda,Charge Nurse.
[2020-06-26 20:00] VITALS: BP 99/59
[2020-06-27] VITALS: BP 100/61
[2020-06-27 04:00] VITALS: BP 103/64
[2020-06-27] MEDS: NovoLOG Insulin Flexpen SUBQ SCH ×4 (06:32→21:43)
--- NOTE | 2020-06-27 07:31 | NUR ---
NURSE NOTES: Patient awake, alert x4; on nasal cannula 2 liters, no sing of distress and shortness of breath; no sing of chest pain; IV RAC flushes well; side rails up x2, breaks engaged, bed at lowest position; urinal and call light within reach; will keep monitoring.
[2020-06-27 07:54] LABS: ALANINE AMINOTRANSFERASE 24 U/L (12-78); ALBUMIN 2.4 G/DL (3.4-5.0); ALBUMIN/GLOBULIN RATIO 0.6 (1.0-2.7); ALKALINE PHOSPHATASE 78 U/L (46-116); ANION GAP 9 mmol/L (5-15); ASPARTATE AMINO TRANSFERASE 20 U/L (15-37); BILIRUBIN,DIRECT < 0.1 MG/DL (0.0-0.3); BILIRUBIN,TOTAL 0.4 MG/DL (0.2-1.0); BLOOD UREA NITROGEN 17 mg/dL (7-18); CALCIUM 8.5 MG/DL (8.5-10.1); CARBON DIOXIDE 23 MMOL/L (21-32); CHLORIDE 108 MMOL/L (98-107); CREATININE 0.8 MG/DL (0.55-1.30); POTASSIUM 3.3 MMOL/L (3.5-5.1); SODIUM 140 MMOL/L (136-145)
[2020-06-27 08:00] VITALS: BP 103/66
[2020-06-27 08:06] LABS: BASOPHILS % (AUTO) 0.6 % (0.0-2.0); HEMATOCRIT 46.5 % (42.0-52.0); HEMOGLOBIN 16.3 G/DL (14.2-18.0); LYMPHOCYTES % (AUTO) 12.9 % (20.0-45.0); MEAN CORPUSCULAR VOLUME 90 FL (80-99); MONOCYTES % (AUTO) 10.6 % (1.0-10.0); NEUTROPHILS % (AUTO) 75.8 % (45.0-75.0); PLATELET COUNT 289 K/UL (150-450); RED BLOOD COUNT 5.16 M/UL (4.70-6.10); RED CELL DISTRIBUTION WIDTH 11.9 % (11.6-14.8); WHITE BLOOD COUNT 11.9 K/UL (4.8-10.8)
[2020-06-27] MEDS: Tamsulosin 0.4mg cap ORAL SCH (08:33)
[2020-06-27] MEDS: Azithromycin 250mg tab ORAL SCH (08:33)
[2020-06-27] MEDS: dexAMETHasone 10mg/ml Inj IV SCH (08:34)
[2020-06-27] MEDS: Levemir Flexpen SUBQ SCH (11:52)
[2020-06-27 12:00] VITALS: BP 98/65
--- NOTE | 2020-06-27 12:46 | NUR ---
NURSE NOTES: Patient's K 3.3; I communicated DEPUTY COURT Angie; waiting for the order.
--- NOTE | 2020-06-27 12:50 | NUR ---
CASE MANAGEMENT: REVIEW 06/27/2020 SI:COVID PNA. HYPOKALEMIA. VS: T 98.1 HR 81 RR 20 B/P 98/65 SATS 93% ON RA LABS: WBC 11.9 K 3.3 CL 108 GLU 147 IS:NS @ 50 ML/HR FLOMAX PO QD DECADRON IV QD (11/02) AZITHROMYCIN PO QD INSULIN ASPART SUBQ AC/HS REMDESIVIR IV Q24H (08/27) LEVEMIR SUBQ Q24H MED/SURG
--- NOTE | 2020-06-27 12:57 | Pulmonology Progress Note ---
Subjective Constitutional: Reports: fatigue; Denies: fever Gastrointestinal/Abdominal: Denies: nausea, vomiting, diarrhea Psychiatric: Denies: depression Skin: Denies: rash Musculoskeletal: Denies: pain Allergies: Coded Allergies: SULFAMETHOXAZOLE (Verified Allergy, Unknown, 12/30/19) Subjective on O2 via NC, no resp distress no fevers, leukocytosis trending down BP better less dizzy, chest discomfort with deep breathing Objective Last 24 Hour Vital Signs Date Time Temp Pulse Resp B/P (MAP) Pulse Ox O2 Delivery O2 Flow Rate FiO2 06/27/20 12:00 98.1 81 20 98/65 (76) 93 06/27/20 09:00 Room Air 06/27/20 08:00 97.5 74 20 103/66 (78) 93 06/27/20 04:00 97.9 89 20 103/64 (77) 96 06/27/20 00:00 98.1 80 20 100/61 (74) 96 06/26/20 21:00 Room Air 06/26/20 20:00 98.0 78 20 99/59 (72) 95 06/26/20 16:00 98.4 82 20 96/62 (73) 96 Intake and Output 06/26/20 06/27/20 19:00 07:00 Intake Total 1025 ml 770 ml Output Total 2300 ml Balance 1025 ml -1530 ml Intake Oral 720 ml IV Total 1025 ml 50 ml Output Urine Total 2300 ml Objective General Appearance: no apparent distress, alert , oriented x3 Lines, tubes and drains: peripheral HEENT: normocephalic, atraumatic, anicteric, O2 via NC Neck: non-tender, supple Respiratory/Chest: chest wall non-tender, lungs clear, no respiratory distress Cardiovascular/Chest: normal rate, regular rhythm Abdomen: normal bowel sounds, non tender, soft Extremities: normal range of motion, non-tender, no calf tenderness, normal capillary refill Skin Exam: warm/dry Neurologic: no motor/sensory deficits, alert, oriented x 3, responsive, normal mood/affect Lymphatic: anterior cervical Musculoskeletal: normal muscle bulk Laboratory Tests 06/26/20 21:40: POC Whole Blood Glucose [Pending] 06/27/20 05:00: White Blood Count 11.9H, Red Blood Count 5.16, Hemoglobin 16.3, Hematocrit 46.5, Mean Corpuscular Volume 90, Mean Corpuscular Hemoglobin 31.6H, Mean Corpuscular Hemoglobin Concent 35.0, Red Cell Distribution Width 11.9, Platelet Count 289, Mean Platelet Volume 6.5, Neutrophils (%) (Auto) 75.8H, Lymphocytes (%) (Auto) 12.9L, Monocytes (%) (Auto) 10.6H, Eosinophils (%) (Auto) 0.0, Basophils (%) (Auto) 0.6, Sodium Level 140, Potassium Level 3.3L, Chloride Level 108H, Carbon Dioxide Level 23, Anion Gap 9, Blood Urea Nitrogen 17, Creatinine 0.8, Estimat Glomerular Filtration Rate > 60, Glucose Level 147H, Calcium Level 8.5, Total Bilirubin 0.4, Direct Bilirubin < 0.1, Aspartate Amino Transf (AST/SGOT) 20, Alanine Aminotransferase (ALT/SGPT) 24, Alkaline Phosphatase 78, C-Reactive Protein, Quantitative 5.5H, Total Protein 6.4, Albumin 2.4L, Globulin 4.0, Albumin/Globulin Ratio 0.6L Current Medications Medications (Trade) Dose Ordered Sig/Judith Route PRN Reason Start Time Stop Time Status Last Admin Dose Admin Acetaminophen (Tylenol) 650 mg Q4H PRN ORAL Temp >100.5 06/22/20 11:15 07/22/20 11:14 Albuterol Sulfate (Proventil MDI) 2 puff Q4H PRN INH Shortness of Breath 06/22/20 11:15 09/20/20 11:14 Azithromycin (Zithromax) 500 mg DAILY ORAL 06/25/20 09:00 07/02/20 08:59 06/27/20 08:33 Ceftriaxone Sodium 1 gm/ Dextrose 50 ml @ 100 mls/hr Q24H IVPB 06/24/20 18:00 07/01/20 17:59 06/26/20 17:04 Dexamethasone Sodium Phosphate (Decadron 10mg/ ml Inj) 6 mg DAILY IV 06/23/20 17:15 07/02/20 09:01 06/27/20 08:34 Dextrose (Dextrose 50%) 25 ml Q30M PRN IV Hypoglycemia 06/22/20 11:30 09/20/20 11:29 Dextrose (Dextrose 50%) 50 ml Q30M PRN IV Hypoglycemia 06/22/20 11:30 09/20/20 11:29 Enoxaparin Sodium (Lovenox) 40 mg Q24H SUBQ 06/22/20 17:00 09/20/20 16:59 06/26/20 17:03 Famotidine (Pepcid) 40 mg DAILY ORAL 06/23/20 09:00 09/21/20 08:59 06/27/20 08:33 Guaifenesin/ Dextromethorphan (Robitussin DM Syrup) 10 ml Q4H PRN ORAL For Cough 06/23/20 17:19 09/21/20 17:18 06/24/20 22:35 Insulin Aspart (NovoLOG) BEFORE MEALS AND HS SUBQ 06/22/20 11:30 09/20/20 11:29 06/27/20 11:51 Insulin Detemir (Levemir) 15 units Q24H SUBQ 06/25/20 11:30 09/22/20 11:29 06/27/20 11:52 Metoclopramide HCl (Reglan) 10 mg Q6H PRN IVP Nausea & Vomiting 06/22/20 11:15 07/22/20 11:14 06/24/20 22:35 Ondansetron HCl (Zofran) 4 mg Q4H PRN IVP Nausea & Vomiting 06/22/20 22:15 07/22/20 22:14 06/23/20 16:18 Remdesivir 100 mg/ Sodium Chloride 250 ml @ 250 mls/hr Q24H IV 06/25/20 16:00 06/28/20 16:59 06/26/20 15:53 Sodium Chloride 1,000 ml @ 50 mls/hr Q20H IV 06/22/20 11:15 07/22/20 11:14 06/27/20 04:44 Tamsulosin HCl (Flomax) 0.4 mg DAILY ORAL 06/23/20 09:00 07/23/20 08:59 06/27/20 08:33 Assessment/Plan Assessment/Plan ASSESSMENT COVID 19 pneumonia Dizziness, near syncope with associated nonbloody nonbilious emesis Hypoxia Hypokalemia Hypotension currently Hx of HTN HLD IDDM Gout BPH PLAN OF CARE MS floor isolation Date of sx onset: 4 days prior to presentation to ED on 06/21 Positive test: 06/21 rapid COVID 19 + O2 -> NC HFA REM Day # 4 ( 06/24- ) Dex Day # 5 ( 06/23 -) DVT PPX: Lovenox D dimer 0.19 Trend CRP 6.0-17.4-5.5 Abx per ID recs a/tussive prn CXR 06/26 patchy pulm infiltrates Monitor volumes and renal function Fup with consultants recs FC Discuss GOC CT head negative serial troponin NGT, ECG non ischemic, ruled out for acute [place] ECHO with pEF, no evidence of WMA dizziness may be due to COVID infection , in addition may have some dehydration due to associated emesis on IV hydration, continue , decrease rate given improved BP GI prophylaxis BS management HgA1c 9.7, not at goal off metformin and on LA Levemir ,, SSI BP management, currently hold off all anti HTN continue Flomax fall precautions supportive care case discussed and evaluated by supervising physician Angie Leo NP Jun 27, 2020 12:57 Sid Borges MD Jun 27, 2020 20:14
[2020-06-27 16:00] VITALS: BP 102/60
[2020-06-27] MEDS: Maintenance Dose:Remdesivir 100mg/NS 230ml x 4 Doses IV SCH ×2 (16:17)
[2020-06-27] MEDS: Enoxaparin 40mg Inj SUBQ SCH (16:17)
[2020-06-27] MEDS: cefTRIAXone 1 GM in D5W 50 ML IVPB SCH (17:16)
--- NOTE | 2020-06-27 18:11 | NUR ---
NURSE HAND-OFF: Important Events on Shift:Low K 40 mEq PO given; blood sugar monitor and Insluin pen given; IV anti-biotics given; Patient Status: Diet: Pending Orders: Pending Results/Labs: Pending MD notification: Latest Vital Signs: Temperature 97.7 , Pulse 75 , B/P 102 /60 , Respiratory Rate 20 , O2 SAT 93 , Room Air, O2 Flow Rate 2.0 . Vital Sign Comment: Latest Bey Fall Score: 35 Fall Risk: Medium Risk Safety Measures: Call light Within Reach, Bed Alarm , Side Rails Side Rails x2, Bed position Low and Locked. Fall Precautions: Yellow Socks Door Sign Patient Fall Education Report given to .
--- NOTE | 2020-06-27 19:43 | NUR ---
HAND-OFF: Report given to IVELISSE Jones.
--- NOTE | 2020-06-27 19:46 | Cardiac Electrophysiology PN ---
Assessment/Plan Assessment/Plan 1. Shortness of breath. Ruled out for [place]. Echo EF 60% 2. COVID pneumonia, in isolation. On steroid and remdesivir and antibiotic. On 2 liter NC 3. Diabetes, on metformin and insulin. 4. Hyperlipidemia. 5. HTN On p.r.n. clonidine 6. Vomiting, could be due to COVID infection. Subjective Subjective In covid isolation in NAD on 2 liter NC now Objective Last 24 Hour Vital Signs Date Time Temp Pulse Resp B/P (MAP) Pulse Ox O2 Delivery O2 Flow Rate FiO2 06/27/20 16:00 97.7 75 20 102/60 (74) 93 06/27/20 12:00 98.1 81 20 98/65 (76) 93 06/27/20 09:00 Room Air 06/27/20 08:00 97.5 74 20 103/66 (78) 93 06/27/20 04:00 97.9 89 20 103/64 (77) 96 06/27/20 00:00 98.1 80 20 100/61 (74) 96 06/26/20 21:00 Room Air 06/26/20 20:00 98.0 78 20 99/59 (72) 95 Intake and Output 06/26/20 06/27/20 19:00 07:00 Intake Total 1025 ml 770 ml Output Total 2300 ml Balance 1025 ml -1530 ml Intake Oral 720 ml IV Total 1025 ml 50 ml Output Urine Total 2300 ml Laboratory Tests Test 06/26/20 21:40 06/27/20 05:00 POC Whole Blood Glucose Pending White Blood Count 11.9 K/UL (4.8-10.8) H Red Blood Count 5.16 M/UL (4.70-6.10) Hemoglobin 16.3 G/DL (14.2-18.0) Hematocrit 46.5 % (42.0-52.0) Mean Corpuscular Volume 90 FL (80-99) Mean Corpuscular Hemoglobin 31.6 PG (27.0-31.0) H Mean Corpuscular Hemoglobin Concent 35.0 G/DL (32.0-36.0) Red Cell Distribution Width 11.9 % (11.6-14.8) Platelet Count 289 K/UL (150-450) Mean Platelet Volume 6.5 FL (6.5-10.1) Neutrophils (%) (Auto) 75.8 % (45.0-75.0) H Lymphocytes (%) (Auto) 12.9 % (20.0-45.0) L Monocytes (%) (Auto) 10.6 % (1.0-10.0) H Eosinophils (%) (Auto) 0.0 % (0.0-3.0) Basophils (%) (Auto) 0.6 % (0.0-2.0) Sodium Level 140 MMOL/L (136-145) Potassium Level 3.3 MMOL/L (3.5-5.1) L Chloride Level 108 MMOL/L (98-107) H Carbon Dioxide Level 23 MMOL/L (21-32) Anion Gap 9 mmol/L (5-15) Blood Urea Nitrogen 17 mg/dL (7-18) Creatinine 0.8 MG/DL (0.55-1.30) Estimat Glomerular Filtration Rate > 60 mL/min (>60) Glucose Level 147 MG/DL (74-106) H Calcium Level 8.5 MG/DL (8.5-10.1) Total Bilirubin 0.4 MG/DL (0.2-1.0) Direct Bilirubin < 0.1 MG/DL (0.0-0.3) Aspartate Amino Transf (AST/SGOT) 20 U/L (15-37) Alanine Aminotransferase (ALT/SGPT) 24 U/L (12-78) Alkaline Phosphatase 78 U/L (46-116) C-Reactive Protein, Quantitative 5.5 mg/dL (0.00-0.90) H Total Protein 6.4 G/DL (6.4-8.2) Albumin 2.4 G/DL (3.4-5.0) L Globulin 4.0 g/dL Albumin/Globulin Ratio 0.6 (1.0-2.7) L Objective HEAD AND NECK: Shows no JVD. LUNGS: Coarse rhonchi. CARDIOVASCULAR: Shows regular S1 and S2 with no gallop. ABDOMEN: Soft. EXTREMITIES: No pitting edema. Néstor Riley MD Jun 27, 2020 19:46
--- NOTE | 2020-06-27 19:54 | NUR ---
NURSE NOTES: Patient is awake, alert and oriented x4, in no acute distress, denies SOB at this time, denies nausea, patient reports he has intermittent episodes of SOB, on 2L NC. IV intact, patent, running IV fluids NS at 50 ml/h, IV patent. Updated on plan of care. On COVID isolation. Side rails upx2, bed low and locked, call light within reach.
[2020-06-27 20:00] VITALS: BP 98/60
[2020-06-28] VITALS: BP 96/57
[2020-06-28 04:00] VITALS: BP 110/65
[2020-06-28 05:37] LABS: BASOPHILS % (AUTO) 1.4 % (0.0-2.0); HEMATOCRIT 46.7 % (42.0-52.0); HEMOGLOBIN 16.5 G/DL (14.2-18.0); LYMPHOCYTES % (AUTO) 12.9 % (20.0-45.0); MEAN CORPUSCULAR VOLUME 88 FL (80-99); MONOCYTES % (AUTO) 9.9 % (1.0-10.0); NEUTROPHILS % (AUTO) 75.8 % (45.0-75.0); PLATELET COUNT 350 K/UL (150-450); RED BLOOD COUNT 5.32 M/UL (4.70-6.10); RED CELL DISTRIBUTION WIDTH 13.6 % (11.6-14.8); WHITE BLOOD COUNT 12.8 K/UL (4.8-10.8)
[2020-06-28 06:08] LABS: ALANINE AMINOTRANSFERASE 27 U/L (12-78); ALBUMIN 2.6 G/DL (3.4-5.0); ALBUMIN/GLOBULIN RATIO 0.6 (1.0-2.7); ALKALINE PHOSPHATASE 97 U/L (46-116); ANION GAP 10 mmol/L (5-15); ASPARTATE AMINO TRANSFERASE 20 U/L (15-37); BILIRUBIN,DIRECT 0.2 MG/DL (0.0-0.3); BILIRUBIN,TOTAL 0.4 MG/DL (0.2-1.0); BLOOD UREA NITROGEN 21 mg/dL (7-18); CALCIUM 8.9 MG/DL (8.5-10.1); CARBON DIOXIDE 23 MMOL/L (21-32); CHLORIDE 106 MMOL/L (98-107); POTASSIUM 3.5 MMOL/L (3.5-5.1); SODIUM 139 MMOL/L (136-145)
[2020-06-28] MEDS: NovoLOG Insulin Flexpen SUBQ SCH ×4 (06:57→23:04)
--- NOTE | 2020-06-28 07:53 | NUR ---
NURSE HAND-OFF: Important Events on Shift: Yesterday on day shift, Low K (3.3, Kdur 40 mEq PO given; maybe reenter diet- supposed to be low cholesterol and low fat 1800 ADA diet but is written as regular Pending Orders: labs am Pending Results/Labs: cbc bmp Pending MD notification:- Latest Vital Signs: Temperature 97.7 , Pulse 75 , B/P 102 /60 , Respiratory Rate 20 , O2 SAT 93 , Room Air, O2 Flow Rate 2.0 . Vital Sign Comment: Latest Bey Fall Score: 35 Fall Risk: Medium Risk Safety Measures: Call light Within Reach, Bed Alarm , Side Rails Side Rails x2, Bed position Low and Locked. Fall Precautions: Yellow Socks Door Sign Patient Fall Education Report given to Nia OVIEDO
[2020-06-28 08:00] VITALS: BP 97/59
[2020-06-28] MEDS: dexAMETHasone 10mg/ml Inj IV SCH (09:41)
[2020-06-28] MEDS: Tamsulosin 0.4mg cap ORAL SCH (09:42)
[2020-06-28] MEDS: Azithromycin 250mg tab ORAL SCH (09:42)
[2020-06-28 12:00] VITALS: BP 115/79
[2020-06-28] MEDS: Levemir Flexpen SUBQ SCH (12:24)
--- NOTE | 2020-06-28 12:26 | Pulmonology Progress Note ---
Subjective ROS Limited/Unobtainable: No Allergies: Coded Allergies: SULFAMETHOXAZOLE (Verified Allergy, Unknown, 12/30/19) Subjective onRA now, no resp distress no fevers, mild leukocytosis BP better but still low less dizzy, chest discomfort with deep breathing + fatigue Objective Last 24 Hour Vital Signs Date Time Temp Pulse Resp B/P (MAP) Pulse Ox O2 Delivery O2 Flow Rate FiO2 06/28/20 08:00 96.3 77 20 97/59 (72) 94 06/28/20 04:00 98.0 70 21 110/65 (80) 96 06/28/20 00:00 98.4 63 20 96/57 (70) 95 06/27/20 21:00 Room Air 06/27/20 20:00 97.7 70 20 98/60 (73) 94 06/27/20 16:00 97.7 75 20 102/60 (74) 93 Intake and Output 06/27/20 06/28/20 19:00 07:00 Intake Total 900 ml Output Total 800 ml 1300 ml Balance 100 ml -1300 ml Intake Oral 350 ml IV Total 550 ml Output Urine Total 800 ml 1300 ml # Voids 4 Objective General Appearance: no apparent distress, alert , oriented x3 Lines, tubes and drains: peripheral HEENT: normocephalic, atraumatic, anicteric, Neck: non-tender, supple Respiratory/Chest: chest wall non-tender, lungs clear, no respiratory distress Cardiovascular/Chest: normal rate, regular rhythm Abdomen: normal bowel sounds, non tender, soft Extremities: normal range of motion, non-tender, no calf tenderness, normal capillary refill Skin Exam: warm/dry Neurologic: no motor/sensory deficits, alert, oriented x 3, responsive, normal mood/affect Lymphatic: anterior cervical Musculoskeletal: normal muscle bulk Laboratory Tests 06/28/20 03:00: White Blood Count 12.8H, Red Blood Count 5.32, Hemoglobin 16.5, Hematocrit 46.7, Mean Corpuscular Volume 88, Mean Corpuscular Hemoglobin 31.1H, Mean Corpuscular Hemoglobin Concent 35.5, Red Cell Distribution Width 13.6, Platelet Count 350, Mean Platelet Volume 6.7, Neutrophils (%) (Auto) 75.8H, Lymphocytes (%) (Auto) 12.9L, Monocytes (%) (Auto) 9.9, Eosinophils (%) (Auto) 0.0, Basophils (%) (Auto) 1.4, Sodium Level 139, Potassium Level 3.5, Chloride Level 106, Carbon Dioxide Level 23, Anion Gap 10, Blood Urea Nitrogen 21H, Creatinine 1.0, Estimat Glomerular Filtration Rate > 60, Glucose Level 189H, Calcium Level 8.9, Magnesium Level 2.2, Total Bilirubin 0.4, Direct Bilirubin 0.2, Aspartate Amino Transf (AST/SGOT) 20, Alanine Aminotransferase (ALT/SGPT) 27, Alkaline Phosphatase 97, Total Protein 6.9, Albumin 2.6L, Globulin 4.3, Albumin/Globulin Ratio 0.6L 06/28/20 06:56: POC Whole Blood Glucose 177H Current Medications Medications (Trade) Dose Ordered Sig/Judith Route PRN Reason Start Time Stop Time Status Last Admin Dose Admin Acetaminophen (Tylenol) 650 mg Q4H PRN ORAL Temp >100.5 06/22/20 11:15 07/22/20 11:14 Albuterol Sulfate (Proventil MDI) 2 puff Q4H PRN INH Shortness of Breath 06/22/20 11:15 09/20/20 11:14 Azithromycin (Zithromax) 500 mg DAILY ORAL 06/25/20 09:00 07/02/20 08:59 06/28/20 09:42 Ceftriaxone Sodium 1 gm/ Dextrose 50 ml @ 100 mls/hr Q24H IVPB 06/24/20 18:00 07/01/20 17:59 06/27/20 17:16 Dexamethasone Sodium Phosphate (Decadron 10mg/ ml Inj) 6 mg DAILY IV 06/23/20 17:15 07/02/20 09:01 06/28/20 09:41 Dextrose (Dextrose 50%) 25 ml Q30M PRN IV Hypoglycemia 06/22/20 11:30 09/20/20 11:29 Dextrose (Dextrose 50%) 50 ml Q30M PRN IV Hypoglycemia 06/22/20 11:30 09/20/20 11:29 Enoxaparin Sodium (Lovenox) 40 mg Q24H SUBQ 06/22/20 17:00 09/20/20 16:59 06/27/20 16:17 Famotidine (Pepcid) 40 mg DAILY ORAL 06/23/20 09:00 09/21/20 08:59 1/3/21 09:42 Guaifenesin/ Dextromethorphan (Robitussin DM Syrup) 10 ml Q4H PRN ORAL For Cough 06/23/20 17:19 09/21/20 17:18 06/24/20 22:35 Insulin Aspart (NovoLOG) BEFORE MEALS AND HS SUBQ 06/22/20 11:30 09/20/20 11:29 06/28/20 06:57 Insulin Detemir (Levemir) 15 units Q24H SUBQ 06/25/20 11:30 09/22/20 11:29 06/27/20 11:52 Metoclopramide HCl (Reglan) 10 mg Q6H PRN IVP Nausea & Vomiting 06/22/20 11:15 07/22/20 11:14 06/24/20 22:35 Ondansetron HCl (Zofran) 4 mg Q4H PRN IVP Nausea & Vomiting 06/22/20 22:15 07/22/20 22:14 06/28/20 12:14 Remdesivir 100 mg/ Sodium Chloride 250 ml @ 250 mls/hr Q24H IV 06/25/20 16:00 06/28/20 16:59 06/27/20 16:17 Sodium Chloride 1,000 ml @ 50 mls/hr Q20H IV 06/22/20 11:15 07/22/20 11:14 06/27/20 23:33 Tamsulosin HCl (Flomax) 0.4 mg DAILY ORAL 06/23/20 09:00 07/23/20 08:59 06/28/20 09:42 Assessment/Plan Assessment/Plan ASSESSMENT COVID 19 pneumonia Dizziness, near syncope with associated nonbloody nonbilious emesis Hypoxia Hypokalemia Hypotension currently Hx of HTN HLD IDDM Gout BPH PLAN OF CARE MS floor isolation Date of sx onset: 4 days prior to presentation to ED on 06/21 Positive test: 06/21 rapid COVID 19 + O2 -> RA HFA REM Day # 5 ( 06/24- 06/29 ) Dex Day # 6 ( 06/23 -) DVT PPX: Lovenox D dimer 0.19 Trend CRP 6.0-17.4-5.5 Abx per ID recs a/tussive prn CXR 06/26 patchy pulm infiltrates fup with CXR in am Monitor volumes and renal function Fup with consultants recs FC Discuss GOC CT head negative serial troponin NGT, ECG non ischemic, ruled out for acute HI ECHO with pEF, no evidence of WMA dizziness may be due to COVID infection , in addition may have some dehydration due to associated emesis on IV hydration, continue , decrease rate given improved BP GI prophylaxis BS management HgA1c 9.7, not at goal off metformin and on LA Levemir ,, SSI BP management, currently hold off all anti HTN continue Flomax fall precautions supportive care case discussed and evaluated by supervising physician Angie Leo NP Jun 28, 2020 12:26 Sid Borges MD Jun 28, 2020 20:53
[2020-06-28 16:00] VITALS: BP 101/67
[2020-06-28] MEDS: Maintenance Dose:Remdesivir 100mg/NS 230ml x 4 Doses IV SCH ×2 (16:16)
--- NOTE | 2020-06-28 17:10 | NUR ---
NURSE NOTES: left message to dr. Kush Villeda regarding BS 501, then repeated 486.
[2020-06-28] MEDS: Enoxaparin 40mg Inj SUBQ SCH (17:59)
--- NOTE | 2020-06-28 17:59 | Cardiac Electrophysiology PN ---
Assessment/Plan Assessment/Plan 1. Shortness of breath. Ruled out for [facility]. Echo EF 60% 2. COVID pneumonia, in isolation. On steroid and remdesivir and antibiotic. On 2 liter NC 3. Uncontrolled Diabetes, on metformin and insulin. 4. Hyperlipidemia. 5. HTN On p.r.n. clonidine 6. Vomiting, could be due to COVID infection. Subjective Subjective In covid isolation in NAD on 2 liter NC. BG was> 500! Objective Last 24 Hour Vital Signs Date Time Temp Pulse Resp B/P (MAP) Pulse Ox O2 Delivery O2 Flow Rate FiO2 06/28/20 12:00 97.3 72 20 115/79 (91) 95 06/28/20 09:00 Room Air 06/28/20 08:00 96.3 77 20 97/59 (72) 94 06/28/20 04:00 98.0 70 21 110/65 (80) 96 06/28/20 00:00 98.4 63 20 96/57 (70) 95 06/27/20 21:00 Room Air 06/27/20 20:00 97.7 70 20 98/60 (73) 94 Intake and Output 06/27/20 06/28/20 19:00 07:00 Intake Total 900 ml Output Total 800 ml 1300 ml Balance 100 ml -1300 ml Intake Oral 350 ml IV Total 550 ml Output Urine Total 800 ml 1300 ml # Voids 4 Laboratory Tests Test 06/28/20 03:00 06/28/20 06:56 06/28/20 16:21 06/28/20 16:22 White Blood Count 12.8 K/UL (4.8-10.8) H Red Blood Count 5.32 M/UL (4.70-6.10) Hemoglobin 16.5 G/DL (14.2-18.0) Hematocrit 46.7 % (42.0-52.0) Mean Corpuscular Volume 88 FL (80-99) Mean Corpuscular Hemoglobin 31.1 PG (27.0-31.0) H Mean Corpuscular Hemoglobin Concent 35.5 G/DL (32.0-36.0) Red Cell Distribution Width 13.6 % (11.6-14.8) Platelet Count 350 K/UL (150-450) Mean Platelet Volume 6.7 FL (6.5-10.1) Neutrophils (%) (Auto) 75.8 % (45.0-75.0) H Lymphocytes (%) (Auto) 12.9 % (20.0-45.0) L Monocytes (%) (Auto) 9.9 % (1.0-10.0) Eosinophils (%) (Auto) 0.0 % (0.0-3.0) Basophils (%) (Auto) 1.4 % (0.0-2.0) Sodium Level 139 MMOL/L (136-145) Potassium Level 3.5 MMOL/L (3.5-5.1) Chloride Level 106 MMOL/L (98-107) Carbon Dioxide Level 23 MMOL/L (21-32) Anion Gap 10 mmol/L (5-15) Blood Urea Nitrogen 21 mg/dL (7-18) H Creatinine 1.0 MG/DL (0.55-1.30) Estimat Glomerular Filtration Rate > 60 mL/min (>60) Glucose Level 189 MG/DL (74-106) H Calcium Level 8.9 MG/DL (8.5-10.1) Magnesium Level 2.2 MG/DL (1.8-2.4) Total Bilirubin 0.4 MG/DL (0.2-1.0) Direct Bilirubin 0.2 MG/DL (0.0-0.3) Aspartate Amino Transf (AST/SGOT) 20 U/L (15-37) Alanine Aminotransferase (ALT/SGPT) 27 U/L (12-78) Alkaline Phosphatase 97 U/L (46-116) Total Protein 6.9 G/DL (6.4-8.2) Albumin 2.6 G/DL (3.4-5.0) L Globulin 4.3 g/dL Albumin/Globulin Ratio 0.6 (1.0-2.7) L POC Whole Blood Glucose 177 MG/DL (74-106) H 501 MG/DL (74-106) *H Pending Objective HEAD AND NECK: Shows no JVD. LUNGS: Coarse rhonchi. CARDIOVASCULAR: Shows regular S1 and S2 with no gallop. ABDOMEN: Soft. EXTREMITIES: No pitting edema. Néstor Riley MD Jun 28, 2020 17:59
[2020-06-28] MEDS: cefTRIAXone 1 GM in D5W 50 ML IVPB SCH (18:00)
--- NOTE | 2020-06-28 19:27 | NUR ---
NURSE HAND-OFF: Important Events on Shift:[] Patient Status: [] Diet: [ccho medium low fat low chl] Pending Orders: [cxr, cbc, cmp, bili direct] Pending Results/Labs:[] Pending MD notification:[] Latest Vital Signs: Temperature 97.7 , Pulse 84 , B/P 101 /67 , Respiratory Rate 20 , O2 SAT 93 , Room Air, O2 Flow Rate 2.0 . Vital Sign Comment: [] Latest Bey Fall Score: 35 Fall Risk: Medium Risk Safety Measures: Call light Within Reach, Bed Alarm , Side Rails Side Rails x2, Bed position Low and Locked. Fall Precautions: Yellow Socks Door Sign Patient Fall Education Report given to [IVELISSE Hopkins].
--- NOTE | 2020-06-28 19:35 | NUR ---
NURSE NOTES: received report from nikolay chen. patient on bed, awake and verbally responsive. denies any pain or discomfort. on NC @ 1lpm sating 93%. no sob. per nikolay chen " current blood sugar of 501 and rechecked with a result of 486, [address] schneider, awaiting for call back". patient denies any symptoms of hyperglycemia. uses urinal on the bedside. reiterated to call and ask for assistance to prevent fall or injury. bed locked and in lowest position. call light and light button within easy reach. will continue plan of care.
[2020-06-28 20:00] VITALS: BP 105/67
[2020-06-28] MEDS ORDERED: NovoLOG Insulin Flexpen SUBQ SCH (20:30)
--- NOTE | 2020-06-28 20:45 | NUR ---
NURSE NOTES: rechecked blood sugar of 468.paged dr. schneider for further orders. got an order from dr. wolfe (on-call) to give another dose of 12 units and re-check and follow sliding scale for bedtime insulin. order noted and carried out. charge nurse informed.
--- NOTE | 2020-06-28 21:30 | NUR ---
NURSE NOTES: patient requested to give another dose of insulin(bedtime) in an hour.
--- NOTE | 2020-06-28 21:38 | Infectious Diseases Prog Note ---
Assessment/Plan Assessment/Plan ASSESSMENT AND PLAN: 1. covid-19 virus infection with pna, ? CAP, hypoxia leukocytosis likely secondary to steroids - dexamethasone and s/p remdesivir - azithromycin and ceftriaxone - monitor hypoxia, labs and chest x-ray - clinically better, patient feels better, sats stable 2. Syncope. Workup per Primary and Cardiology. 3. Diabetes. 4. Hypertension. 5. Blood pressure and blood sugar treatment per primary care team. 6. Dyslipidemia. 7. Asthma. 8. GERD. 9. Gout. 10. Continue treatment per primary consultants. 11. Allergies to sulfamethoxazole. 12. Social history is negative. 13. Family history is noncontributory. 14. MAR is noted. 15. Case discussed with RN. Subjective Constitutional: Denies: fever HEENT: Reports: congestion - less Respiratory: Reports: shortness of breath - less Cardiovascular: Denies: chest pain Gastrointestinal/Abdominal: Denies: nausea, vomiting Genitourinary: Reports: other - no mark Skin: Denies: rash Hematologic: Denies: bleeding Allergies: Coded Allergies: SULFAMETHOXAZOLE (Verified Allergy, Unknown, 12/30/19) Objective Last 24 Hour Vital Signs Date Time Temp Pulse Resp B/P (MAP) Pulse Ox O2 Delivery O2 Flow Rate FiO2 06/28/20 16:00 97.7 84 20 101/67 (78) 93 06/28/20 12:00 97.3 72 20 115/79 (91) 95 06/28/20 09:00 Room Air 06/28/20 08:00 96.3 77 20 97/59 (72) 94 06/28/20 04:00 98.0 70 21 110/65 (80) 96 06/28/20 00:00 98.4 63 20 96/57 (70) 95 Height (Feet): 5 Height (Inches): 1.00 Weight (Pounds): 155 General Appearance: no acute distress HEENT: normocephalic, atraumatic, anicteric Respiratory/Chest: crackles/rales, rhonchi - bilaterally Cardiovascular: normal rate, regular rhythm Abdomen: normal bowel sounds, soft, non tender, no organomegaly, non distended Genitourinary: other - no mark Extremities: no cyanosis Skin: no rash 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 Normal heart size and pleural spaces remain clear Impression: New bilateral infiltrates, likely multifocal pneumonia, appearance nonspecific as regards etiology Chest x-ray 06/26/20 - FINDINGS: Lungs: Patchy pulmonary infiltrates, most confluent in the left lung base. Pleural space: Unremarkable. No pneumothorax. Heart: Unremarkable. No cardiomegaly. Mediastinum: Unremarkable. Bones/joints: No acute fracture. Other findings: 06/26/20 at 1322 IMPRESSION: Patchy pulmonary infiltrates, most confluent in the left lung base. Microbiology Date/Time Source Procedure Growth Status 06/21/20 20:00 Nasopharynx SARS-CoV-2 RdRp Gene Assay - Final Complete Laboratory Tests Test 06/27/20 21:38 06/28/20 03:00 06/28/20 06:56 06/28/20 12:21 POC Whole Blood Glucose 384 MG/DL (74-106) H 177 MG/DL (74-106) H Pending White Blood Count 12.8 K/UL (4.8-10.8) H Red Blood Count 5.32 M/UL (4.70-6.10) Hemoglobin 16.5 G/DL (14.2-18.0) Hematocrit 46.7 % (42.0-52.0) Mean Corpuscular Volume 88 FL (80-99) Mean Corpuscular Hemoglobin 31.1 PG (27.0-31.0) H Mean Corpuscular Hemoglobin Concent 35.5 G/DL (32.0-36.0) Red Cell Distribution Width 13.6 % (11.6-14.8) Platelet Count 350 K/UL (150-450) Mean Platelet Volume 6.7 FL (6.5-10.1) Neutrophils (%) (Auto) 75.8 % (45.0-75.0) H Lymphocytes (%) (Auto) 12.9 % (20.0-45.0) L Monocytes (%) (Auto) 9.9 % (1.0-10.0) Eosinophils (%) (Auto) 0.0 % (0.0-3.0) Basophils (%) (Auto) 1.4 % (0.0-2.0) Sodium Level 139 MMOL/L (136-145) Potassium Level 3.5 MMOL/L (3.5-5.1) Chloride Level 106 MMOL/L (98-107) Carbon Dioxide Level 23 MMOL/L (21-32) Anion Gap 10 mmol/L (5-15) Blood Urea Nitrogen 21 mg/dL (7-18) H Creatinine 1.0 MG/DL (0.55-1.30) Estimat Glomerular Filtration Rate > 60 mL/min (>60) Glucose Level 189 MG/DL (74-106) H Calcium Level 8.9 MG/DL (8.5-10.1) Magnesium Level 2.2 MG/DL (1.8-2.4) Total Bilirubin 0.4 MG/DL (0.2-1.0) Direct Bilirubin 0.2 MG/DL (0.0-0.3) Aspartate Amino Transf (AST/SGOT) 20 U/L (15-37) Alanine Aminotransferase (ALT/SGPT) 27 U/L (12-78) Alkaline Phosphatase 97 U/L (46-116) Total Protein 6.9 G/DL (6.4-8.2) Albumin 2.6 G/DL (3.4-5.0) L Globulin 4.3 g/dL Albumin/Globulin Ratio 0.6 (1.0-2.7) L Test 06/28/20 16:21 06/28/20 16:22 POC Whole Blood Glucose 501 MG/DL (74-106) *H Pending Current Medications Medications (Trade) Dose Ordered Sig/Judith Route PRN Reason Start Time Stop Time Status Last Admin Dose Admin Acetaminophen (Tylenol) 650 mg Q4H PRN ORAL Temp >100.5 06/22/20 11:15 07/22/20 11:14 Albuterol Sulfate (Proventil MDI) 2 puff Q4H PRN INH Shortness of Breath 06/22/20 11:15 09/20/20 11:14 Azithromycin (Zithromax) 500 mg DAILY ORAL 06/25/20 09:00 07/02/20 08:59 06/28/20 09:42 Ceftriaxone Sodium 1 gm/ Dextrose 50 ml @ 100 mls/hr Q24H IVPB 06/24/20 18:00 07/01/20 17:59 06/28/20 18:00 Dexamethasone Sodium Phosphate (Decadron 10mg/ ml Inj) 6 mg DAILY IV 06/23/20 17:15 07/02/20 09:01 06/28/20 09:41 Dextrose (Dextrose 50%) 25 ml Q30M PRN IV Hypoglycemia 06/22/20 11:30 09/20/20 11:29 Dextrose (Dextrose 50%) 50 ml Q30M PRN IV Hypoglycemia 06/22/20 11:30 09/20/20 11:29 Enoxaparin Sodium (Lovenox) 40 mg Q24H SUBQ 06/22/20 17:00 09/20/20 16:59 06/28/20 17:59 Famotidine (Pepcid) 40 mg DAILY ORAL 06/23/20 09:00 09/21/20 08:59 06/28/20 09:42 Guaifenesin/ Dextromethorphan (Robitussin DM Syrup) 10 ml Q4H PRN ORAL For Cough 06/23/20 17:19 09/21/20 17:18 06/24/20 22:35 Insulin Aspart (NovoLOG) BEFORE MEALS AND HS SUBQ 06/22/20 11:30 09/20/20 11:29 06/28/20 18:02 Insulin Detemir (Levemir) 15 units Q24H SUBQ 06/25/20 11:30 09/22/20 11:29 06/28/20 12:24 Metoclopramide HCl (Reglan) 10 mg Q6H PRN IVP Nausea & Vomiting 06/22/20 11:15 07/22/20 11:14 06/24/20 22:35 Ondansetron HCl (Zofran) 4 mg Q4H PRN IVP Nausea & Vomiting 06/22/20 22:15 07/22/20 22:14 06/28/20 12:14 Sodium Chloride 1,000 ml @ 50 mls/hr Q20H IV 06/22/20 11:15 07/22/20 11:14 06/28/20 19:33 Tamsulosin HCl (Flomax) 0.4 mg DAILY ORAL 06/23/20 09:00 07/23/20 08:59 06/28/20 09:42 Sidra Lowry MD Jun 28, 2020 21:38
--- NOTE | 2020-06-28 22:42 | NUR ---
NURSE NOTES: rechecked blood sugar of 257, insulin given as ordered. charge nurse made aware Addendum: 06/28/20 at 2346 by Joanne Hopkins RN provided snacks
[2020-06-29] VITALS: BP 112/69
[2020-06-29 04:00] VITALS: BP 120/71
[2020-06-29] MEDS: NovoLOG Insulin Flexpen SUBQ SCH ×4 (06:34→21:30)
--- NOTE | 2020-06-29 06:50 | NUR ---
NURSE HAND-OFF: Important Events on Shift: episode of hyperglycemia; 12 units extra dose+ bed time insulin- current blood sugar of 219 Patient Status: stable Diet: regular Pending Orders: Pending Results/Labs: Pending MD notification: Latest Vital Signs: Temperature 97.6 , Pulse 87 , B/P 120 /71 , Respiratory Rate 20 , O2 SAT 95 , Room Air, O2 Flow Rate 2.0 . Vital Sign Comment: Latest Bey Fall Score: 35 Fall Risk: Medium Risk Safety Measures: Call light Within Reach, Bed Alarm , Side Rails Side Rails x2, Bed position Low and Locked. Fall Precautions: Yellow Socks Door Sign Patient Fall Education Addendum: 06/29/20 at 0733 by Joanne Hopkins RN HAND-OFF: Report given to inkolay chen.
[2020-06-29 07:22] LABS: BASOPHILS % (AUTO) 0.8 % (0.0-2.0); EOSINOPHILS % (AUTO) 0.2 % (0.0-3.0); HEMATOCRIT 48.7 % (42.0-52.0); HEMOGLOBIN 16.8 G/DL (14.2-18.0); LYMPHOCYTES % (AUTO) 11.6 % (20.0-45.0); MEAN CORPUSCULAR VOLUME 91 FL (80-99); MONOCYTES % (AUTO) 9.5 % (1.0-10.0); PLATELET COUNT 364 K/UL (150-450); RED BLOOD COUNT 5.35 M/UL (4.70-6.10); RED CELL DISTRIBUTION WIDTH 12.1 % (11.6-14.8); WHITE BLOOD COUNT 13.7 K/UL (4.8-10.8)
[2020-06-29 08:01] LABS: ALANINE AMINOTRANSFERASE 33 U/L (12-78); ALBUMIN 2.8 G/DL (3.4-5.0); ALBUMIN/GLOBULIN RATIO 0.7 (1.0-2.7); ALKALINE PHOSPHATASE 103 U/L (46-116); ANION GAP 9 mmol/L (5-15); ASPARTATE AMINO TRANSFERASE 19 U/L (15-37); BILIRUBIN,DIRECT < 0.1 MG/DL (0.0-0.3); BILIRUBIN,TOTAL 0.5 MG/DL (0.2-1.0); BLOOD UREA NITROGEN 18 mg/dL (7-18); CALCIUM 8.8 MG/DL (8.5-10.1); CARBON DIOXIDE 24 MMOL/L (21-32); CHLORIDE 106 MMOL/L (98-107); POTASSIUM 3.8 MMOL/L (3.5-5.1); SODIUM 139 MMOL/L (136-145)
--- NOTE | 2020-06-29 08:04 | NUR ---
NURSE NOTES: received patient in bed, asleep, on 3L O2/min. No sign of respiratory distress. Will try to titrate O2 throughout the shift as directed by SIDNEY Leo yesterday. patient received NS @ 75cc/hr through IV access R wrist, no sign of infiltration noted. Call light within easy reach. Bed locked at the lowest position possible, side rails up x2. Will continue to monitor patient and follow up with the plan of care.
[2020-06-29 09:00] VITALS: BP 96/64
[2020-06-29] MEDS: Azithromycin 250mg tab ORAL SCH (10:14)
[2020-06-29] MEDS: Tamsulosin 0.4mg cap ORAL SCH (10:14)
[2020-06-29] MEDS: dexAMETHasone 10mg/ml Inj IV SCH (10:15)
--- NOTE | 2020-06-29 10:36 | Pulmonology Progress Note ---
Subjective Allergies: Coded Allergies: SULFAMETHOXAZOLE (Verified Allergy, Unknown, 12/30/19) Subjective on O2 via NC , no resp distress no fevers, mild leukocytosis BP better but still low less dizzy, chest discomfort with deep breathing + fatigue Objective Last 24 Hour Vital Signs Date Time Temp Pulse Resp B/P (MAP) Pulse Ox O2 Delivery O2 Flow Rate FiO2 06/29/20 09:00 96.3 63 20 96/64 (75) 92 06/29/20 04:00 97.6 87 20 120/71 (87) 95 06/29/20 00:00 97.5 84 20 112/69 (83) 96 06/28/20 21:00 Nasal Cannula 2.0 06/28/20 20:00 97.8 82 20 105/67 (80) 95 06/28/20 16:00 97.7 84 20 101/67 (78) 93 06/28/20 12:00 97.3 72 20 115/79 (91) 95 Intake and Output 06/28/20 06/29/20 19:00 07:00 Intake Total 400 ml 550 ml Output Total 800 ml 1100 ml Balance -400 ml -550 ml Intake Oral 400 ml 550 ml Output Urine Total 800 ml 1100 ml # Voids 4 # Bowel Movements 2 Objective General Appearance: no apparent distress, alert , oriented x3 Lines, tubes and drains: peripheral HEENT: normocephalic, atraumatic, anicteric, Neck: non-tender, supple Respiratory/Chest: chest wall non-tender, lungs clear, no respiratory distress Cardiovascular/Chest: normal rate, regular rhythm Abdomen: normal bowel sounds, non tender, soft Extremities: normal range of motion, non-tender, no calf tenderness, normal capillary refill Skin Exam: warm/dry Neurologic: no motor/sensory deficits, alert, oriented x 3, responsive, normal mood/affect Lymphatic: anterior cervical Musculoskeletal: normal muscle bulk Laboratory Tests 06/28/20 12:21: POC Whole Blood Glucose [Pending] 06/28/20 16:21: POC Whole Blood Glucose 501*H 06/28/20 16:22: POC Whole Blood Glucose [Pending] 06/29/20 05:00: White Blood Count 13.7H, Red Blood Count 5.35, Hemoglobin 16.8, Hematocrit 48.7, Mean Corpuscular Volume 91, Mean Corpuscular Hemoglobin 31.3H, Mean Corpuscular Hemoglobin Concent 34.4, Red Cell Distribution Width 12.1, Platelet Count 364, Mean Platelet Volume 6.9, Neutrophils (%) (Auto) 78.0H, Lymphocytes (%) (Auto) 11.6L, Monocytes (%) (Auto) 9.5, Eosinophils (%) (Auto) 0.2, Basophils (%) (Auto) 0.8, Sodium Level 139, Potassium Level 3.8, Chloride Level 106, Carbon Dioxide Level 24, Anion Gap 9, Blood Urea Nitrogen 18, Creatinine 1.0, Estimat Glomerular Filtration Rate > 60, Glucose Level 188H, Calcium Level 8.8, Total Bilirubin 0.5, Direct Bilirubin < 0.1, Aspartate Amino Transf (AST/SGOT) 19, Alanine Aminotransferase (ALT/SGPT) 33, Alkaline Phosphatase 103, Total Protein 7.1, Albumin 2.8L, Globulin 4.3, Albumin/Globulin Ratio 0.7L Current Medications Medications (Trade) Dose Ordered Sig/Judith Route PRN Reason Start Time Stop Time Status Last Admin Dose Admin Acetaminophen (Tylenol) 650 mg Q4H PRN ORAL Temp >100.5 06/22/20 11:15 07/22/20 11:14 Albuterol Sulfate (Proventil MDI) 2 puff Q4H PRN INH Shortness of Breath 06/22/20 11:15 09/20/20 11:14 Azithromycin (Zithromax) 500 mg DAILY ORAL 06/25/20 09:00 07/02/20 08:59 06/29/20 10:14 Ceftriaxone Sodium 1 gm/ Dextrose 50 ml @ 100 mls/hr Q24H IVPB 06/24/20 18:00 07/01/20 17:59 06/28/20 18:00 Dexamethasone Sodium Phosphate (Decadron 10mg/ ml Inj) 6 mg DAILY IV 06/23/20 17:15 07/02/20 09:01 06/29/20 10:15 Dextrose (Dextrose 50%) 25 ml Q30M PRN IV Hypoglycemia 06/22/20 11:30 09/20/20 11:29 Dextrose (Dextrose 50%) 50 ml Q30M PRN IV Hypoglycemia 06/22/20 11:30 09/20/20 11:29 Enoxaparin Sodium (Lovenox) 40 mg Q24H SUBQ 06/22/20 17:00 09/20/20 16:59 06/28/20 17:59 Famotidine (Pepcid) 40 mg DAILY ORAL 06/23/20 09:00 09/21/20 08:59 06/29/20 10:15 Guaifenesin/ Dextromethorphan (Robitussin DM Syrup) 10 ml Q4H PRN ORAL For Cough 06/23/20 17:19 09/21/20 17:18 06/24/20 22:35 Insulin Aspart (NovoLOG) BEFORE MEALS AND HS SUBQ 06/22/20 11:30 09/20/20 11:29 06/29/20 06:34 Insulin Detemir (Levemir) 15 units Q24H SUBQ 06/25/20 11:30 09/22/20 11:29 06/28/20 12:24 Metoclopramide HCl (Reglan) 10 mg Q6H PRN IVP Nausea & Vomiting 06/22/20 11:15 07/22/20 11:14 06/24/20 22:35 Ondansetron HCl (Zofran) 4 mg Q4H PRN IVP Nausea & Vomiting 06/22/20 22:15 07/22/20 22:14 06/28/20 12:14 Sodium Chloride 1,000 ml @ 50 mls/hr Q20H IV 06/22/20 11:15 07/22/20 11:14 06/28/20 19:33 Tamsulosin HCl (Flomax) 0.4 mg DAILY ORAL 06/23/20 09:00 07/23/20 08:59 06/29/20 10:14 Assessment/Plan Assessment/Plan ASSESSMENT COVID 19 pneumonia Dizziness, near syncope with associated nonbloody nonbilious emesis Hypoxia Hypokalemia Hypotension currently Hx of HTN HLD IDDM Gout BPH PLAN OF CARE MS floor isolation Date of sx onset: 4 days prior to presentation to ED on 06/21 Positive test: 06/21 rapid COVID 19 + O2 -> 2 l NC, titrate to keep sat > 90% HFA s/p REM x 5 days ( 06/24- 06/29 ) Dex Day # 7 ( 06/23 -) DVT PPX: Lovenox D dimer 0.19 Trend CRP 6.0-17.4-5.5 Abx per ID recs a/tussive prn CXR 06/26 patchy pulm infiltrates fup with CXR Monitor volumes and renal function Fup with consultants recs FC Discuss GOC CT head negative serial troponin NGT, ECG non ischemic, ruled out for acute MT ECHO with pEF, no evidence of WMA dizziness may be due to COVID infection , in addition may have some dehydration due to associated emesis on IV hydration, continue , decrease rate given improved BP GI prophylaxis BS management HgA1c 9.7, not at goal off metformin and on LA Levemir ,, SSI BP management, currently hold off all anti HTN continue Flomax fall precautions supportive care case discussed and evaluated by supervising physician Angie Leo NP Jun 29, 2020 10:36 Sid Borges MD Jun 29, 2020 22:24
[2020-06-29 12:00] VITALS: BP 86/56
--- NOTE | 2020-06-29 12:05 | Diagnostic Imaging Report ---
Indication: Shortness of breath Technique: One view of the chest Comparison: 06/26/2020 Findings: Again demonstrated are bilateral peripheral streaky infiltrates, appearing slightly increased. There is a nodular opacity at the right lung base which was not evident previously. There is very slight blunting of right costophrenic sulcus Impression: Slightly increased bilateral infiltrates, likely indicating worsening pneumonia Nodular opacity at the right lung base, not evident previously and therefore presumably representing focal area of consolidation. Possible developing trace right pleural effusion
--- NOTE | 2020-06-29 13:16 | NUR ---
RD ASSESSMENT & RECOMMENDATIONS SEE CARE ACTIVITY FOR COMPLETE ASSESSMENT DAILY ESTIMATED NEEDS: Needs based on DM, Pulmonary, 56kg abw 25-30 kcals/kg 7027-7827 total kcals 1-1.5 g protein/kg 56-84 g total protein 25-30 mL/kg 0892-5168 total fluid mLs NUTRITION DIAGNOSIS: Altered nutrition related lab values R/T hyperglycemia w/ h/o DM, altered lipid metabolism as evidenced by elev A1C 9.7, elev POC glu (219-501), pt on Decadron, elev triglyceride (191), elev LDL (142). CURRENT DIET:CCHO MED, LOW FAT PO DIET RECOMMENDATIONS: CCHO LOW, CARDIAC/ texture as tolerated ADDITIONAL RECOMMENDATIONS: * Standing wt as able for accurate CBW * Increase long acting insulin: uncontrolled BGs from 200's-500's) pt on Decadron * Trend triglyceride and LDL, need for lipid lowering agent
[2020-06-29] MEDS: Levemir Flexpen SUBQ SCH (13:20)
--- NOTE | 2020-06-29 15:52 | Cardiac Electrophysiology PN ---
Assessment/Plan Assessment/Plan 1. Shortness of breath. Ruled out for [place]. Echo EF 60% 2. COVID pneumonia, in isolation. On steroid and remdesivir and antibiotic. On 2 liter NC 3. Uncontrolled Diabetes, on metformin and insulin. 4. Hyperlipidemia. 5. Hypotension. will bolus 500cc NS and reevaluate 6. Vomiting, could be due to COVID infection. CORY RN Subjective Subjective In covid isolation in NAD on 2 liter NC. BG was> 500 yesterday. BP was running in 80s Objective Last 24 Hour Vital Signs Date Time Temp Pulse Resp B/P (MAP) Pulse Ox O2 Delivery O2 Flow Rate FiO2 06/29/20 12:00 97.0 82 20 86/56 (66) 92 06/29/20 09:00 Room Air 06/29/20 09:00 96.3 63 20 96/64 (75) 92 06/29/20 04:00 97.6 87 20 120/71 (87) 95 06/29/20 00:00 97.5 84 20 112/69 (83) 96 06/28/20 21:00 Nasal Cannula 2.0 06/28/20 20:00 97.8 82 20 105/67 (80) 95 06/28/20 16:00 97.7 84 20 101/67 (78) 93 Intake and Output 06/28/20 06/29/20 19:00 07:00 Intake Total 400 ml 550 ml Output Total 800 ml 1100 ml Balance -400 ml -550 ml Intake Oral 400 ml 550 ml Output Urine Total 800 ml 1100 ml # Voids 4 # Bowel Movements 2 Laboratory Tests Test 06/28/20 16:21 06/28/20 16:22 06/29/20 05:00 POC Whole Blood Glucose 501 MG/DL (74-106) *H Pending White Blood Count 13.7 K/UL (4.8-10.8) H Red Blood Count 5.35 M/UL (4.70-6.10) Hemoglobin 16.8 G/DL (14.2-18.0) Hematocrit 48.7 % (42.0-52.0) Mean Corpuscular Volume 91 FL (80-99) Mean Corpuscular Hemoglobin 31.3 PG (27.0-31.0) H Mean Corpuscular Hemoglobin Concent 34.4 G/DL (32.0-36.0) Red Cell Distribution Width 12.1 % (11.6-14.8) Platelet Count 364 K/UL (150-450) Mean Platelet Volume 6.9 FL (6.5-10.1) Neutrophils (%) (Auto) 78.0 % (45.0-75.0) H Lymphocytes (%) (Auto) 11.6 % (20.0-45.0) L Monocytes (%) (Auto) 9.5 % (1.0-10.0) Eosinophils (%) (Auto) 0.2 % (0.0-3.0) Basophils (%) (Auto) 0.8 % (0.0-2.0) Sodium Level 139 MMOL/L (136-145) Potassium Level 3.8 MMOL/L (3.5-5.1) Chloride Level 106 MMOL/L (98-107) Carbon Dioxide Level 24 MMOL/L (21-32) Anion Gap 9 mmol/L (5-15) Blood Urea Nitrogen 18 mg/dL (7-18) Creatinine 1.0 MG/DL (0.55-1.30) Estimat Glomerular Filtration Rate > 60 mL/min (>60) Glucose Level 188 MG/DL (74-106) H Calcium Level 8.8 MG/DL (8.5-10.1) Total Bilirubin 0.5 MG/DL (0.2-1.0) Direct Bilirubin < 0.1 MG/DL (0.0-0.3) Aspartate Amino Transf (AST/SGOT) 19 U/L (15-37) Alanine Aminotransferase (ALT/SGPT) 33 U/L (12-78) Alkaline Phosphatase 103 U/L (46-116) C-Reactive Protein, Quantitative Pending Total Protein 7.1 G/DL (6.4-8.2) Albumin 2.8 G/DL (3.4-5.0) L Globulin 4.3 g/dL Albumin/Globulin Ratio 0.7 (1.0-2.7) L Objective HEAD AND NECK: Shows no JVD. LUNGS: Coarse rhonchi. CARDIOVASCULAR: Shows regular S1 and S2 with no gallop. ABDOMEN: Soft. EXTREMITIES: No pitting edema. Néstor Riley MD Jun 29, 2020 15:52
[2020-06-29 16:00] VITALS: BP 99/62
--- NOTE | 2020-06-29 16:07 | NUR ---
Charge nurse note: Blood sugar (accucheck 540 mg/dl) was called, message left.
[2020-06-29] MEDS ORDERED: NovoLOG Insulin Flexpen SUBQ SCH (16:14)
[2020-06-29] MEDS: Enoxaparin 40mg Inj SUBQ SCH (17:17)
[2020-06-29] MEDS: cefTRIAXone 1 GM in D5W 50 ML IVPB SCH (17:21)
--- NOTE | 2020-06-29 17:27 | NUR ---
CASE MANAGEMENT:REVIEW SI;COVID PNA. IDDM. 96.3 84 20 86/56 92% 2L NC WBC 13.7 GLU 540 IS;INSULIN SQ ONCE ZITHROMAX PO QD DECADRON IV QD ROCEPHIN IV QD INSULIN LEVEMIR SQ QD LOVENOX SQ QD IVF NS @ 50 ML/HR MED SURG STATUS DCP;FROM HOME
--- NOTE | 2020-06-29 19:29 | NUR ---
NURSE HAND-OFF: Important Events on Shift:[BS 540, got order dr Borges supplemental novolog] Patient Status: [] Diet: [CCHO Medium low fat and CHL] Pending Orders: [] Pending Results/Labs:[] Pending MD notification:[] Latest Vital Signs: Temperature 97.9 , Pulse 83 , B/P 99 /62 , Respiratory Rate 20 , O2 SAT 93 , Room Air, O2 Flow Rate 2.0 . Vital Sign Comment: [] Latest Bey Fall Score: 35 Fall Risk: Medium Risk Safety Measures: Call light Within Reach, Bed Alarm , Side Rails Side Rails x2, Bed position Low and Locked. Fall Precautions: Yellow Socks Door Sign Patient Fall Education Report given to [IVELISSE Hopkins].
--- NOTE | 2020-06-29 19:40 | NUR ---
NURSE NOTES: received report from nikolay chen. patient on bed, awake and verbally responsive. denies any pain or discomfort. on NC @ 2lpm sating 93%. no sob. per nikolay chen "extra dose of insulin due to hyperglycemia". patient denies any symptoms of hyperglycemia. uses urinal on the bedside. reiterated to call and ask for assistance to prevent fall or injury. bed locked and in lowest position. call light and light button within easy reach. will continue plan of care.
[2020-06-29 20:00] VITALS: BP 106/68
[2020-06-29] MEDS ORDERED: Levemir Flexpen SUBQ SCH (22:30)
[2020-06-30] VITALS: BP 110/65
[2020-06-30 04:00] VITALS: BP 109/69
[2020-06-30] MEDS: NovoLOG Insulin Flexpen SUBQ SCH ×6 (05:45→20:46)
--- NOTE | 2020-06-30 06:53 | NUR ---
NURSE HAND-OFF: Important Events on Shift: blood sugar monitoring Patient Status: stable: diet: ccho Pending Orders: Pending Results/Labs: Pending MD notification: Latest Vital Signs: Temperature 97.4 , Pulse 82 , B/P 109 /69 , Respiratory Rate 20 , O2 SAT 96 , Room Air, O2 Flow Rate 2.0 . Vital Sign Comment: Latest Bey Fall Score: 35 Fall Risk: Medium Risk Safety Measures: Call light Within Reach, Bed Alarm , Side Rails Side Rails x2, Bed position Low and Locked. Fall Precautions: Yellow Socks Door Sign Patient Fall Education Addendum: 06/30/20 at 0735 by Joanne Hopkins RN HAND-OFF: Report given to nikolay muro.
--- NOTE | 2020-06-30 07:00 | NUR ---
NURSE NOTES: Received patient in bed,awake, alert and oriented x4, not in acute respiratory/cardiac distress noted. Patient denies cough, on oxygen @ 2L/min via NC, BP is stable 111/73, O2sat is 98%. Denies fever. IV is intact,no s/s of infiltration. No s/s of hypo/hyperglycemia. Bed is in lowest position and locked. Call light within reach. Will continue plan of care.
[2020-06-30 08:00] VITALS: BP 111/73
[2020-06-30] MEDS: Azithromycin 250mg tab ORAL SCH (08:08)
[2020-06-30] MEDS: Tamsulosin 0.4mg cap ORAL SCH (08:08)
[2020-06-30] MEDS ORDERED: dexAMETHasone 10mg/ml Inj IV SCH (09:00)
--- NOTE | 2020-06-30 10:05 | Pulmonology Progress Note ---
Subjective Allergies: Coded Allergies: SULFAMETHOXAZOLE (Verified Allergy, Unknown, 12/30/19) Subjective on O2 via NC , no resp distress no fevers, mild leukocytosis less dizzy, chest discomfort with deep breathing + fatigue BS > 500 this am Objective Last 24 Hour Vital Signs Date Time Temp Pulse Resp B/P (MAP) Pulse Ox O2 Delivery O2 Flow Rate FiO2 06/30/20 08:00 98.1 63 20 111/73 (86) 95 06/30/20 04:00 97.4 82 20 109/69 (82) 96 06/30/20 00:00 97.5 82 20 110/65 (80) 96 06/29/20 21:00 Nasal Cannula 2.0 06/29/20 20:00 97.6 85 20 106/68 (81) 94 06/29/20 16:00 97.9 83 20 99/62 (74) 93 06/29/20 12:00 97.0 82 20 86/56 (66) 92 Intake and Output 06/29/20 06/30/20 19:00 07:00 Intake Total 720 ml 450 ml Balance 720 ml 450 ml Intake Oral 720 ml 450 ml # Voids 4 3 # Bowel Movements 1 Objective General Appearance: no apparent distress, alert , oriented x3 Lines, tubes and drains: peripheral HEENT: normocephalic, atraumatic, anicteric, Neck: non-tender, supple Respiratory/Chest: chest wall non-tender, lungs clear, no respiratory distress Cardiovascular/Chest: normal rate, regular rhythm Abdomen: normal bowel sounds, non tender, soft Extremities: normal range of motion, non-tender, no calf tenderness, normal capillary refill Skin Exam: warm/dry Neurologic: no motor/sensory deficits, alert, oriented x 3, responsive, normal mood/affect Lymphatic: anterior cervical Musculoskeletal: normal muscle bulk Laboratory Tests 06/29/20 16:05: POC Whole Blood Glucose 540*H 06/30/20 00:38: POC Whole Blood Glucose 268H 06/30/20 05:37: POC Whole Blood Glucose 287H Current Medications Medications (Trade) Dose Ordered Sig/Judith Route PRN Reason Start Time Stop Time Status Last Admin Dose Admin Acetaminophen (Tylenol) 650 mg Q4H PRN ORAL Temp >100.5 06/22/20 11:15 07/22/20 11:14 Albuterol Sulfate (Proventil MDI) 2 puff Q4H PRN INH Shortness of Breath 06/22/20 11:15 09/20/20 11:14 Azithromycin (Zithromax) 500 mg DAILY ORAL 06/25/20 09:00 07/02/20 08:59 06/30/20 08:08 Ceftriaxone Sodium 1 gm/ Dextrose 50 ml @ 100 mls/hr Q24H IVPB 06/24/20 18:00 07/01/20 17:59 06/29/20 17:21 Dexamethasone Sodium Phosphate (Decadron 10mg/ ml Inj) 4 mg DAILY IV 06/30/20 09:00 07/02/20 09:01 06/30/20 08:09 Dextrose (Dextrose 50%) 25 ml Q30M PRN IV Hypoglycemia 06/22/20 11:30 09/20/20 11:29 Dextrose (Dextrose 50%) 50 ml Q30M PRN IV Hypoglycemia 06/22/20 11:30 09/20/20 11:29 Enoxaparin Sodium (Lovenox) 40 mg Q24H SUBQ 06/22/20 17:00 09/20/20 16:59 06/29/20 17:17 Famotidine (Pepcid) 40 mg DAILY ORAL 06/23/20 09:00 09/21/20 08:59 06/30/20 08:08 Guaifenesin/ Dextromethorphan (Robitussin DM Syrup) 10 ml Q4H PRN ORAL For Cough 06/23/20 17:19 09/21/20 17:18 06/24/20 22:35 Insulin Aspart (NovoLOG) BEFORE MEALS AND HS SUBQ 06/22/20 11:30 09/20/20 11:29 06/30/20 05:45 Insulin Detemir (Levemir) 20 units Q24H SUBQ 06/29/20 22:30 09/22/20 11:29 06/30/20 00:40 Metoclopramide HCl (Reglan) 10 mg Q6H PRN IVP Nausea & Vomiting 06/22/20 11:15 07/22/20 11:14 06/24/20 22:35 Ondansetron HCl (Zofran) 4 mg Q4H PRN IVP Nausea & Vomiting 06/22/20 22:15 07/22/20 22:14 06/28/20 12:14 Sodium Chloride 1,000 ml @ 50 mls/hr Q20H IV 06/22/20 11:15 07/22/20 11:14 06/29/20 13:24 Tamsulosin HCl (Flomax) 0.4 mg DAILY ORAL 06/23/20 09:00 07/23/20 08:59 06/30/20 08:08 Assessment/Plan Assessment/Plan ASSESSMENT COVID 19 pneumonia Dizziness, near syncope with associated nonbloody nonbilious emesis Hypoxia Hypokalemia Hypotension currently Hx of HTN HLD IDDM Gout BPH PLAN OF CARE MS floor isolation Date of sx onset: 4 days prior to presentation to ED on 06/21 Positive test: 06/21 rapid COVID 19 + O2 -> 2 l NC, titrate to keep sat > 90%, remove O2 and check pulse ox on RA HFA s/p REM x 5 days ( 06/24- 06/29 ) Dex Day # 8 ( 06/23 -) DVT PPX: Lovenox D dimer 0.19 Trend CRP 6.0-17.4-5.5-30.5 Abx per ID recs a/tussive prn CXR 06/29 Slightly increased bilateral infiltrates, likely indicating worsening pneumonia Nodular opacity at the right lung base, not evident previously and therefore presumably representing focal area of consolidation. Monitor volumes and renal function Fup with consultants recs FC Discuss GOC CT head negative serial troponin NGT, ECG non ischemic, ruled out for acute FL ECHO with pEF, no evidence of WMA dizziness may be due to COVID infection , in addition may have some dehydration due to associated emesis on IV hydration, continue , decrease rate given improved BP GI prophylaxis BS management HgA1c 9.7, not at goal off metformin and on LA Levemir, dose increased to 24 ( home dose) + 3 u pre meal insulin + SSI BP management, currently hold off all anti HTN continue Flomax fall precautions supportive care case discussed and evaluated by supervising physician Angie Leo NP Jun 30, 2020 10:05
[2020-06-30] MEDS: Levemir Flexpen SUBQ SCH (11:35)
--- NOTE | 2020-06-30 11:37 | Cardiac Electrophysiology PN ---
Assessment/Plan Assessment/Plan 1. Shortness of breath. Ruled out for FL. Echo EF 60% 2. COVID pneumonia, in isolation. On steroid and remdesivir and antibiotic. On 2 liter NC 3. Uncontrolled Diabetes, on metformin and insulin. BG still 361 today 4. Hyperlipidemia. 5. Hypotension. Improved with 1 liter NS 6. Vomiting, could be due to COVID infection. CORY RN Subjective Subjective In covid isolation in NAD on 2 liter NC. BP was running in 80s that improved with 1 liter of NS Objective Last 24 Hour Vital Signs Date Time Temp Pulse Resp B/P (MAP) Pulse Ox O2 Delivery O2 Flow Rate FiO2 06/30/20 09:00 Nasal Cannula 2.0 06/30/20 08:00 98.1 63 20 111/73 (86) 95 06/30/20 04:00 97.4 82 20 109/69 (82) 96 06/30/20 00:00 97.5 82 20 110/65 (80) 96 06/29/20 21:00 Nasal Cannula 2.0 06/29/20 20:00 97.6 85 20 106/68 (81) 94 06/29/20 16:00 97.9 83 20 99/62 (74) 93 06/29/20 12:00 97.0 82 20 86/56 (66) 92 Intake and Output 06/29/20 06/30/20 19:00 07:00 Intake Total 720 ml 450 ml Balance 720 ml 450 ml Intake Oral 720 ml 450 ml # Voids 4 3 # Bowel Movements 1 Laboratory Tests Test 06/29/20 16:05 06/30/20 00:38 06/30/20 05:37 06/30/20 11:07 POC Whole Blood Glucose 540 MG/DL (74-106) *H 268 MG/DL (74-106) H 287 MG/DL (74-106) H 361 MG/DL (74-106) H Objective HEAD AND NECK: Shows no JVD. LUNGS: Coarse rhonchi. CARDIOVASCULAR: Shows regular S1 and S2 with no gallop. ABDOMEN: Soft. EXTREMITIES: No pitting edema. Néstor Riley MD Jun 30, 2020 11:36
--- NOTE | 2020-06-30 11:38 | NUR ---
NURSE NOTES: RN monitored patient on room air per Angie's order. RN took off NC and have patient ambulate,as soon as RN took off the oxygen cannula,patient's O2sat dropped to 86-88%, patient denied SOB or anxiety. Patient ambulated few steps and got back in bed in sitting position. RN continued to monitor O2sat, when resting,patient's O2sat went up to 93-94% after 30 mins. Will continue to monitor. Addendum: 06/30/20 at 1530 by KALYN ALDRIDGE RN Angie LITTLE is aware.
--- NOTE | 2020-06-30 11:50 | NUR ---
NURSE NOTES: Patient's blood sugar was 361 mg/dl, administered novolog, no s/s of noticeable hyperglycemic symptoms @ this time.
[2020-06-30 12:00] VITALS: BP 108/71
--- NOTE | 2020-06-30 14:30 | Infectious Diseases Prog Note ---
Assessment/Plan Assessment/Plan ASSESSMENT AND PLAN: 1. covid-19 virus infection with pna, ? CAP, hypoxia leukocytosis likely secondary to steroids - dexamethasone and s/p remdesivir - azithromycin and ceftriaxone - monitor hypoxia, labs and chest x-ray - clinically better, patient feels better, sats stable 2. Syncope. Workup per Primary and Cardiology. 3. Diabetes. 4. Hypertension. 5. Blood pressure and blood sugar treatment per primary care team. 6. Dyslipidemia. 7. Asthma. 8. GERD. 9. Gout. 10. Continue treatment per primary consultants. 11. Allergies to sulfamethoxazole. 12. Social history is negative. 13. Family history is noncontributory. 14. MAR is noted. 15. Case discussed with RN. Subjective Constitutional: Reports: fatigue; Denies: fever HEENT: Reports: congestion - less Respiratory: Reports: shortness of breath - less Cardiovascular: Denies: chest pain Gastrointestinal/Abdominal: Denies: nausea, vomiting, diarrhea Genitourinary: Reports: other - no mark Neurologic: Denies: headache Psychiatric: Denies: depression Skin: Denies: rash Hematologic: Denies: bleeding Musculoskeletal: Denies: pain Allergies: Coded Allergies: SULFAMETHOXAZOLE (Verified Allergy, Unknown, 12/30/19) Objective Last 24 Hour Vital Signs Date Time Temp Pulse Resp B/P (MAP) Pulse Ox O2 Delivery O2 Flow Rate FiO2 06/30/20 12:00 98.1 68 20 108/71 (83) 98 06/30/20 09:00 Nasal Cannula 2.0 06/30/20 08:00 98.1 63 20 111/73 (86) 95 06/30/20 04:00 97.4 82 20 109/69 (82) 96 06/30/20 00:00 97.5 82 20 110/65 (80) 96 06/29/20 21:00 Nasal Cannula 2.0 06/29/20 20:00 97.6 85 20 106/68 (81) 94 06/29/20 16:00 97.9 83 20 99/62 (74) 93 Height (Feet): 5 Height (Inches): 1.00 Weight (Pounds): 155 General Appearance: no acute distress HEENT: normocephalic, atraumatic, anicteric, mucous membranes moist Respiratory/Chest: crackles/rales, rhonchi - bilaterally Cardiovascular: normal rate, regular rhythm, no gallop/murmur, no JVD Abdomen: normal bowel sounds, soft, non tender, no organomegaly, non distended Genitourinary: other - no mark Extremities: no cyanosis Skin: no rash Neurologic/Psychiatric: teaching associate II-XII grossly normal, alert, responsive Lymphatic: no neck adenopathy Musculoskeletal: no effusion Chest x-ray - 06/24/20 - Procedure: XRAY Chest 1v Indication: Reason For Exam: SOB Technique: One view of the chest Comparison: 06/21/2020 Findings: Interim development of streaky right perihilar and left mid to lower lung perihilar and peripheral infiltrates. Normal heart size and pleural spaces remain clear Impression: New bilateral infiltrates, likely multifocal pneumonia, appearance nonspecific as regards etiology Chest x-ray 06/26/20 - FINDINGS: Lungs: Patchy pulmonary infiltrates, most confluent in the left lung base. Pleural space: Unremarkable. No pneumothorax. Heart: Unremarkable. No cardiomegaly. Mediastinum: Unremarkable. Bones/joints: No acute fracture. Other findings: 06/26/20 at 1322 IMPRESSION: Patchy pulmonary infiltrates, most confluent in the left lung base. Microbiology Date/Time Source Procedure Growth Status 06/21/20 20:00 Nasopharynx SARS-CoV-2 RdRp Gene Assay - Final Complete Microbiology Date/Time Source Procedure Growth Status 06/21/20 20:00 Nasopharynx SARS-CoV-2 RdRp Gene Assay - Final Complete Laboratory Tests Test 06/29/20 16:05 06/30/20 00:38 06/30/20 05:37 06/30/20 11:07 POC Whole Blood Glucose 540 MG/DL (74-106) *H 268 MG/DL (74-106) H 287 MG/DL (74-106) H 361 MG/DL (74-106) H Labs Test 06/27/20 16:22 06/27/20 21:38 06/28/20 03:00 06/28/20 06:56 POC Whole Blood Glucose 384 MG/DL (74-106) 177 MG/DL (74-106) White Blood Count 12.8 K/UL (4.8-10.8) Red Blood Count 5.32 M/UL (4.70-6.10) Hemoglobin 16.5 G/DL (14.2-18.0) Hematocrit 46.7 % (42.0-52.0) Mean Corpuscular Volume 88 FL (80-99) Mean Corpuscular Hemoglobin 31.1 PG (27.0-31.0) Mean Corpuscular Hemoglobin Concent 35.5 G/DL (32.0-36.0) Red Cell Distribution Width 13.6 % (11.6-14.8) Platelet Count 350 K/UL (150-450) Mean Platelet Volume 6.7 FL (6.5-10.1) Neutrophils (%) (Auto) 75.8 % (45.0-75.0) Lymphocytes (%) (Auto) 12.9 % (20.0-45.0) Monocytes (%) (Auto) 9.9 % (1.0-10.0) Eosinophils (%) (Auto) 0.0 % (0.0-3.0) Basophils (%) (Auto) 1.4 % (0.0-2.0) Sodium Level 139 MMOL/L (136-145) Potassium Level 3.5 MMOL/L (3.5-5.1) Chloride Level 106 MMOL/L (98-107) Carbon Dioxide Level 23 MMOL/L (21-32) Anion Gap 10 mmol/L (5-15) Blood Urea Nitrogen 21 mg/dL (7-18) Creatinine 1.0 MG/DL (0.55-1.30) Estimat Glomerular Filtration Rate > 60 mL/min (>60) Glucose Level 189 MG/DL (74-106) Calcium Level 8.9 MG/DL (8.5-10.1) Magnesium Level 2.2 MG/DL (1.8-2.4) Total Bilirubin 0.4 MG/DL (0.2-1.0) Direct Bilirubin 0.2 MG/DL (0.0-0.3) Aspartate Amino Transf (AST/SGOT) 20 U/L (15-37) Alanine Aminotransferase (ALT/SGPT) 27 U/L (12-78) Alkaline Phosphatase 97 U/L (46-116) Total Protein 6.9 G/DL (6.4-8.2) Albumin 2.6 G/DL (3.4-5.0) Globulin 4.3 g/dL Albumin/Globulin Ratio 0.6 (1.0-2.7) Test 06/28/20 12:21 06/28/20 16:21 06/28/20 16:22 06/28/20 23:01 POC Whole Blood Glucose 501 MG/DL (74-106) 257 MG/DL (74-106) Test 06/29/20 05:00 06/29/20 05:06 06/29/20 09:59 06/29/20 16:05 White Blood Count 13.7 K/UL (4.8-10.8) Red Blood Count 5.35 M/UL (4.70-6.10) Hemoglobin 16.8 G/DL (14.2-18.0) Hematocrit 48.7 % (42.0-52.0) Mean Corpuscular Volume 91 FL (80-99) Mean Corpuscular Hemoglobin 31.3 PG (27.0-31.0) Mean Corpuscular Hemoglobin Concent 34.4 G/DL (32.0-36.0) Red Cell Distribution Width 12.1 % (11.6-14.8) Platelet Count 364 K/UL (150-450) Mean Platelet Volume 6.9 FL (6.5-10.1) Neutrophils (%) (Auto) 78.0 % (45.0-75.0) Lymphocytes (%) (Auto) 11.6 % (20.0-45.0) Monocytes (%) (Auto) 9.5 % (1.0-10.0) Eosinophils (%) (Auto) 0.2 % (0.0-3.0) Basophils (%) (Auto) 0.8 % (0.0-2.0) Sodium Level 139 MMOL/L (136-145) Potassium Level 3.8 MMOL/L (3.5-5.1) Chloride Level 106 MMOL/L (98-107) Carbon Dioxide Level 24 MMOL/L (21-32) Anion Gap 9 mmol/L (5-15) Blood Urea Nitrogen 18 mg/dL (7-18) Creatinine 1.0 MG/DL (0.55-1.30) Estimat Glomerular Filtration Rate > 60 mL/min (>60) Glucose Level 188 MG/DL (74-106) Calcium Level 8.8 MG/DL (8.5-10.1) Total Bilirubin 0.5 MG/DL (0.2-1.0) Direct Bilirubin < 0.1 MG/DL (0.0-0.3) Aspartate Amino Transf (AST/SGOT) 19 U/L (15-37) Alanine Aminotransferase (ALT/SGPT) 33 U/L (12-78) Alkaline Phosphatase 103 U/L (46-116) C-Reactive Protein, Quantitative 30.5 mg/L (<5) Total Protein 7.1 G/DL (6.4-8.2) Albumin 2.8 G/DL (3.4-5.0) Globulin 4.3 g/dL Albumin/Globulin Ratio 0.7 (1.0-2.7) POC Whole Blood Glucose 219 MG/DL (74-106) 540 MG/DL (74-106) Test 06/30/20 00:38 06/30/20 05:37 06/30/20 11:07 POC Whole Blood Glucose 268 MG/DL (74-106) 287 MG/DL (74-106) 361 MG/DL (74-106) Current Medications Medications (Trade) Dose Ordered Sig/Judith Route PRN Reason Start Time Stop Time Status Last Admin Dose Admin Acetaminophen (Tylenol) 650 mg Q4H PRN ORAL Temp >100.5 06/22/20 11:15 07/22/20 11:14 Albuterol Sulfate (Proventil MDI) 2 puff Q4H PRN INH Shortness of Breath 06/22/20 11:15 09/20/20 11:14 Azithromycin (Zithromax) 500 mg DAILY ORAL 06/25/20 09:00 07/02/20 08:59 06/30/20 08:08 Ceftriaxone Sodium 1 gm/ Dextrose 50 ml @ 100 mls/hr Q24H IVPB 06/24/20 18:00 07/01/20 17:59 06/29/20 17:21 Dexamethasone Sodium Phosphate (Decadron 10mg/ ml Inj) 4 mg DAILY IV 06/30/20 09:00 07/02/20 09:01 06/30/20 08:09 Dextrose (Dextrose 50%) 25 ml Q30M PRN IV Hypoglycemia 06/22/20 11:30 09/20/20 11:29 Dextrose (Dextrose 50%) 50 ml Q30M PRN IV Hypoglycemia 06/22/20 11:30 09/20/20 11:29 Enoxaparin Sodium (Lovenox) 40 mg Q24H SUBQ 06/22/20 17:00 09/20/20 16:59 06/29/20 17:17 Famotidine (Pepcid) 40 mg DAILY ORAL 06/23/20 09:00 09/21/20 08:59 06/30/20 08:08 Guaifenesin/ Dextromethorphan (Robitussin DM Syrup) 10 ml Q4H PRN ORAL For Cough 06/23/20 17:19 09/21/20 17:18 06/24/20 22:35 Insulin Aspart (NovoLOG) BEFORE MEALS AND HS SUBQ 06/22/20 11:30 09/20/20 11:29 06/30/20 11:35 Insulin Aspart (NovoLOG) 3 units NOVOTIAC SUBQ 06/30/20 11:50 09/28/20 11:49 06/30/20 11:37 Insulin Detemir (Levemir) 24 units Q24H SUBQ 06/30/20 10:00 09/22/20 11:29 06/30/20 11:35 Metoclopramide HCl (Reglan) 10 mg Q6H PRN IVP Nausea & Vomiting 06/22/20 11:15 07/22/20 11:14 06/24/20 22:35 Ondansetron HCl (Zofran) 4 mg Q4H PRN IVP Nausea & Vomiting 06/22/20 22:15 07/22/20 22:14 06/28/20 12:14 Sodium Chloride 1,000 ml @ 50 mls/hr Q20H IV 06/22/20 11:15 07/22/20 11:14 06/30/20 11:33 Tamsulosin HCl (Flomax) 0.4 mg DAILY ORAL 06/23/20 09:00 07/23/20 08:59 06/30/20 08:08 Sidra Lowry MD Jun 30, 2020 14:30
--- NOTE | 2020-06-30 14:54 | NUR ---
CASE MANAGEMENT:REVIEW SI;COVID PNEUMONIA 98.1 82 20 111/73 95% 2L NC GLU 361 IS;DECADRON IV QD ZITHROMAX PO QD ROCEPHIN IV Q24 PEPCID PO QD LOVENOX SQ QD IVF NS @ 50 ML/HR INSULIN NOVOLOG SQ QID MED SURG STATUS DCP;FROM HOME PLAN; ROOM AIR ASSESSMENT
[2020-06-30 16:00] VITALS: BP 114/78
[2020-06-30] MEDS: cefTRIAXone 1 GM in D5W 50 ML IVPB SCH (17:17)
[2020-06-30] MEDS: Enoxaparin 40mg Inj SUBQ SCH (17:18)
--- NOTE | 2020-06-30 19:29 | NUR ---
NURSE HAND-OFF: Important Events on Shift: elevated blood sugar, levemir was increased, monitored patient on room air, desat while ambulating Patient Status: stable Diet: ccho medium, low fat Pending Orders: Pending Results/Labs: Pending MD notification: Latest Vital Signs: Temperature 97.9 , Pulse 85 , B/P 114 /78 , Respiratory Rate 20 , O2 SAT 93 , Room Air, O2 Flow Rate 2.0 . Vital Sign Comment: Latest Bey Fall Score: 35 Fall Risk: Medium Risk Safety Measures: Call light Within Reach, Bed Alarm , Side Rails Side Rails x2, Bed position Low and Locked. Fall Precautions: Yellow Socks Door Sign Patient Fall Education Report given to Cheol and endorsed plan of care.
--- NOTE | 2020-06-30 19:30 | NUR ---
NURSE NOTES: Received patient in no apparent distress. A&OX4. NC 2L on, no s/s of respiratory distress noted. IV site patent and intact. Bed in lowest position. Call light within reach. Will continue to monitor.
[2020-06-30 20:00] VITALS: BP 126/97
[2020-07-01] VITALS: BP 102/65
--- NOTE | 2020-07-01 02:15 | Cardiology Report ---
APPROVED REPORT EKG Measurement Heart [id number] <Conclusion> Normal sinus rhythm Normal ECG
[2020-07-01 03:54] VITALS: BP 95/63
[2020-07-01] MEDS: NovoLOG Insulin Flexpen SUBQ SCH ×7 (06:08→21:52)
--- NOTE | 2020-07-01 07:18 | NUR ---
NURSE HAND-OFF: Important Events on Shift: Patient Status: Diet: Pending Orders: Pending Results/Labs: Pending MD notification: Latest Vital Signs: Temperature 97.4 , Pulse 65 , B/P 95 /63 , Respiratory Rate 18 , O2 SAT 94 , Room Air, O2 Flow Rate 2.0 . Vital Sign Comment: Latest Bey Fall Score: 35 Fall Risk: Medium Risk Safety Measures: Call light Within Reach, Bed Alarm Zone 1, Side Rails Side Rails x2, Bed position Low and Locked. Fall Precautions: Yellow Socks Door Sign Patient Fall Education Report given to Brooklynn OVIEDO.
[2020-07-01 07:49] LABS: BASOPHILS % (AUTO) 0.6 % (0.0-2.0); EOSINOPHILS % (AUTO) 1.3 % (0.0-3.0); HEMATOCRIT 47.4 % (42.0-52.0); HEMOGLOBIN 16.2 G/DL (14.2-18.0); LYMPHOCYTES % (AUTO) 13.5 % (20.0-45.0); MEAN CORPUSCULAR VOLUME 92 FL (80-99); MONOCYTES % (AUTO) 9.9 % (1.0-10.0); NEUTROPHILS % (AUTO) 74.7 % (45.0-75.0); PLATELET COUNT 399 K/UL (150-450); RED BLOOD COUNT 5.17 M/UL (4.70-6.10); RED CELL DISTRIBUTION WIDTH 12.4 % (11.6-14.8); WHITE BLOOD COUNT 14.1 K/UL (4.8-10.8)
--- NOTE | 2020-07-01 07:50 | NUR ---
NURSE NOTES: WALKING ROUNDS DONE WITH NIGHT RN. PATIENT AWAKE IN BED HAVING BREAKFAST. DENIES ANY ISSUES AT THIS TIME. QUESTIONS ANSWERED, NEEDS MET. DISCUSSED PLAN OF CARE FOR THE DAY. VERBALIZED UNDERSTANDING. BED IN LOW AND LOCKED POSITION.
[2020-07-01 07:55] LABS: ANION GAP 7 mmol/L (5-15); BLOOD UREA NITROGEN 19 mg/dL (7-18); CALCIUM 8.7 MG/DL (8.5-10.1); CARBON DIOXIDE 27 MMOL/L (21-32); CHLORIDE 107 MMOL/L (98-107); POTASSIUM 3.7 MMOL/L (3.5-5.1); SODIUM 140 MMOL/L (136-145)
[2020-07-01 08:00] VITALS: BP 93/63
[2020-07-01] MEDS: Tamsulosin 0.4mg cap ORAL SCH (08:25)
[2020-07-01] MEDS: Azithromycin 250mg tab ORAL SCH (08:25)
--- NOTE | 2020-07-01 11:41 | Pulmonology Progress Note ---
Subjective Constitutional: Reports: fatigue; Denies: fever Gastrointestinal/Abdominal: Denies: nausea, vomiting, diarrhea Psychiatric: Denies: depression Skin: Denies: rash Musculoskeletal: Denies: pain Allergies: Coded Allergies: SULFAMETHOXAZOLE (Verified Allergy, Unknown, 12/30/19) Subjective on O2 via NC , no resp distress 06/30 ambulated and was trying titrate down to RA, desaturated, still requires supplemental O2 no fevers, mild leukocytosis less dizzy, chest discomfort with deep breathing + fatigue BS better Objective Last 24 Hour Vital Signs Date Time Temp Pulse Resp B/P (MAP) Pulse Ox O2 Delivery O2 Flow Rate FiO2 07/01/20 09:00 Nasal Cannula 2.0 07/01/20 08:00 97.9 88 18 93/63 (73) 93 07/01/20 03:54 97.4 65 18 95/63 (74) 94 07/01/20 00:00 97.9 62 16 102/65 (77) 100 06/30/20 21:00 Nasal Cannula 2.0 06/30/20 20:00 96.8 74 18 126/97 (107) 93 06/30/20 16:00 97.9 85 20 114/78 (90) 93 06/30/20 12:00 98.1 68 20 108/71 (83) 98 Intake and Output 06/30/20 07/01/20 19:00 07:00 Intake Total 1200 ml 960 ml Output Total 1100 ml Balance 100 ml 960 ml Intake Oral 600 ml IV Total 600 ml 600 ml Other 360 ml Output Urine Total 1100 ml # Voids 5 3 Objective General Appearance: no apparent distress, alert , oriented x3 Lines, tubes and drains: peripheral HEENT: normocephalic, atraumatic, anicteric, Neck: non-tender, supple Respiratory/Chest: chest wall non-tender, lungs clear, no respiratory distress Cardiovascular/Chest: normal rate, regular rhythm Abdomen: normal bowel sounds, non tender, soft Extremities: normal range of motion, non-tender, no calf tenderness, normal capillary refill Skin Exam: warm/dry Neurologic: no motor/sensory deficits, alert, oriented x 3, responsive, normal mood/affect Lymphatic: anterior cervical Musculoskeletal: normal muscle bulk Laboratory Tests 06/30/20 16:12: POC Whole Blood Glucose 387H 06/30/20 20:34: POC Whole Blood Glucose 242H 07/01/20 05:50: White Blood Count 14.1H, Red Blood Count 5.17, Hemoglobin 16.2, Hematocrit 47.4, Mean Corpuscular Volume 92, Mean Corpuscular Hemoglobin 31.3H, Mean Corpuscular Hemoglobin Concent 34.1, Red Cell Distribution Width 12.4, Platelet Count 399, Mean Platelet Volume 6.7, Neutrophils (%) (Auto) 74.7, Lymphocytes (%) (Auto) 13.5L, Monocytes (%) (Auto) 9.9, Eosinophils (%) (Auto) 1.3, Basophils (%) (Auto) 0.6, Sodium Level 140, Potassium Level 3.7, Chloride Level 107, Carbon Dioxide Level 27, Anion Gap 7, Blood Urea Nitrogen 19H, Creatinine 1.0, Estimat Glomerular Filtration Rate > 60, Glucose Level 82, Calcium Level 8.7 Current Medications Medications (Trade) Dose Ordered Sig/Judith Route PRN Reason Start Time Stop Time Status Last Admin Dose Admin Acetaminophen (Tylenol) 650 mg Q4H PRN ORAL Temp >100.5 06/22/20 11:15 07/22/20 11:14 Albuterol Sulfate (Proventil MDI) 2 puff Q4H PRN INH Shortness of Breath 06/22/20 11:15 09/20/20 11:14 Azithromycin (Zithromax) 500 mg DAILY ORAL 06/25/20 09:00 07/02/20 08:59 07/01/20 08:25 Ceftriaxone Sodium 1 gm/ Dextrose 50 ml @ 100 mls/hr Q24H IVPB 06/24/20 18:00 07/01/20 17:59 06/30/20 17:17 Dextrose (Dextrose 50%) 25 ml Q30M PRN IV Hypoglycemia 06/22/20 11:30 09/20/20 11:29 Dextrose (Dextrose 50%) 50 ml Q30M PRN IV Hypoglycemia 06/22/20 11:30 09/20/20 11:29 Enoxaparin Sodium (Lovenox) 40 mg Q24H SUBQ 06/22/20 17:00 09/20/20 16:59 06/30/20 17:18 Famotidine (Pepcid) 40 mg DAILY ORAL 06/23/20 09:00 09/21/20 08:59 07/01/20 08:25 Guaifenesin/ Dextromethorphan (Robitussin DM Syrup) 10 ml Q4H PRN ORAL For Cough 06/23/20 17:19 09/21/20 17:18 06/24/20 22:35 Insulin Aspart (NovoLOG) BEFORE MEALS AND HS SUBQ 06/22/20 11:30 09/20/20 11:29 06/30/20 20:46 Insulin Aspart (NovoLOG) 3 units NOVOTIAC SUBQ 06/30/20 11:50 09/28/20 11:49 06/30/20 16:52 Insulin Detemir (Levemir) 24 units Q24H SUBQ 06/30/20 10:00 09/22/20 11:29 06/30/20 11:35 Metoclopramide HCl (Reglan) 10 mg Q6H PRN IVP Nausea & Vomiting 06/22/20 11:15 07/22/20 11:14 06/24/20 22:35 Ondansetron HCl (Zofran) 4 mg Q4H PRN IVP Nausea & Vomiting 06/22/20 22:15 07/22/20 22:14 06/28/20 12:14 Sodium Chloride 1,000 ml @ 50 mls/hr Q20H IV 06/22/20 11:15 07/22/20 11:14 07/01/20 06:09 Tamsulosin HCl (Flomax) 0.4 mg DAILY ORAL 06/23/20 09:00 07/23/20 08:59 07/01/20 08:25 Assessment/Plan Assessment/Plan ASSESSMENT COVID 19 pneumonia Dizziness, near syncope with associated nonbloody nonbilious emesis Hypoxia Hypokalemia Hypotension currently Hx of HTN HLD IDDM Gout BPH PLAN OF CARE MS floor isolation Date of sx onset: 4 days prior to presentation to ED on 06/21 Positive test: 06/21 rapid COVID 19 + O2 -> 2 l NC, 1/ desaturated on RA during ambulation, back on O2 2 L with pulse ox 93% HFA s/p REM x 5 days ( 06/24- 06/29 ) Dex Day # 9 ( 06/23 -) DVT PPX: Lovenox D dimer 0.19 Trend CRP 6.0-17.4-5.5-30.5 Abx per ID recs a/tussive prn CXR 1/ Slightly increased bilateral infiltrates, likely indicating worsening pneumonia Nodular opacity at the right lung base, not evident previously and therefore presumably representing focal area of consolidation. Monitor volumes and renal function Fup with consultants recs FC Discuss GOC CT head negative serial troponin NGT, ECG non ischemic, ruled out for acute MD ECHO with pEF, no evidence of WMA dizziness may be due to COVID infection , in addition may have some dehydration due to associated emesis on IV hydration, continue , decrease rate given improved BP GI prophylaxis BS management HgA1c 9.7, not at goal off metformin and on LA Levemir, dose increased to 24 ( home dose) + 3 u premeal insulin + SSI BP management, currently hold off all anti HTN continue Flomax fall precautions supportive care case discussed and evaluated by supervising physician Angie Leo NP Jul 01, 2020 11:41
[2020-07-01 12:00] VITALS: BP 105/70
[2020-07-01] MEDS: Levemir Flexpen SUBQ SCH (12:17)
[2020-07-01 16:00] VITALS: BP 108/75
--- NOTE | 2020-07-01 16:55 | Cardiac Electrophysiology PN ---
Assessment/Plan Assessment/Plan 1. Shortness of breath. Ruled out for [place]. Echo EF 60% 2. COVID pneumonia, in isolation. On steroid and remdesivir and antibiotic. On 2 liter NC 3. Uncontrolled Diabetes, on metformin and insulin. 4. Hyperlipidemia. 5. Hypotension. Improved with NS 6. Vomiting, could be due to COVID infection. CORY RN Subjective Subjective In covid isolation in NAD on 2 liter NC. BP improved with NS Objective Last 24 Hour Vital Signs Date Time Temp Pulse Resp B/P (MAP) Pulse Ox O2 Delivery O2 Flow Rate FiO2 07/01/20 12:00 97.7 79 18 105/70 (82) 92 07/01/20 09:00 Nasal Cannula 2.0 07/01/20 08:00 97.9 88 18 93/63 (73) 93 07/01/20 03:54 97.4 65 18 95/63 (74) 94 07/01/20 00:00 97.9 62 16 102/65 (77) 100 06/30/20 21:00 Nasal Cannula 2.0 06/30/20 20:00 96.8 74 18 126/97 (107) 93 Intake and Output 06/30/20 07/01/20 19:00 07:00 Intake Total 1200 ml 960 ml Output Total 1100 ml Balance 100 ml 960 ml Intake Oral 600 ml IV Total 600 ml 600 ml Other 360 ml Output Urine Total 1100 ml # Voids 5 3 Laboratory Tests Test 06/30/20 20:34 07/01/20 05:50 07/01/20 06:06 07/01/20 12:07 POC Whole Blood Glucose 242 MG/DL (74-106) H 74 MG/DL (74-106) 223 MG/DL (74-106) H White Blood Count 14.1 K/UL (4.8-10.8) H Red Blood Count 5.17 M/UL (4.70-6.10) Hemoglobin 16.2 G/DL (14.2-18.0) Hematocrit 47.4 % (42.0-52.0) Mean Corpuscular Volume 92 FL (80-99) Mean Corpuscular Hemoglobin 31.3 PG (27.0-31.0) H Mean Corpuscular Hemoglobin Concent 34.1 G/DL (32.0-36.0) Red Cell Distribution Width 12.4 % (11.6-14.8) Platelet Count 399 K/UL (150-450) Mean Platelet Volume 6.7 FL (6.5-10.1) Neutrophils (%) (Auto) 74.7 % (45.0-75.0) Lymphocytes (%) (Auto) 13.5 % (20.0-45.0) L Monocytes (%) (Auto) 9.9 % (1.0-10.0) Eosinophils (%) (Auto) 1.3 % (0.0-3.0) Basophils (%) (Auto) 0.6 % (0.0-2.0) Sodium Level 140 MMOL/L (136-145) Potassium Level 3.7 MMOL/L (3.5-5.1) Chloride Level 107 MMOL/L (98-107) Carbon Dioxide Level 27 MMOL/L (21-32) Anion Gap 7 mmol/L (5-15) Blood Urea Nitrogen 19 mg/dL (7-18) H Creatinine 1.0 MG/DL (0.55-1.30) Estimat Glomerular Filtration Rate > 60 mL/min (>60) Glucose Level 82 MG/DL (74-106) Calcium Level 8.7 MG/DL (8.5-10.1) Objective HEAD AND NECK: Shows no JVD. LUNGS: Coarse rhonchi. CARDIOVASCULAR: Shows regular S1 and S2 with no gallop. ABDOMEN: Soft. EXTREMITIES: No pitting edema. Néstor Riley MD Jul 01, 2020 16:55
[2020-07-01] MEDS: Enoxaparin 40mg Inj SUBQ SCH (17:15)
--- NOTE | 2020-07-01 17:18 | NUR ---
CASE MANAGEMENT:REVIEW SI;COVID PNEUMONIA' 97.9 88 18 93/63 92% 2L NC WBC 14.1 GLU 223 IS; DECADRON IV QD ZITHROMAX PO QD ROCEPHIN IV Q24 PEPCID PO QD LOVENOX SQ QD IVF NS @ 50 ML/HR INSULIN NOVOLOG SQ QID MED SURG STATUS DCP; FROM HOME
[2020-07-01 20:00] VITALS: BP 95/59
--- NOTE | 2020-07-01 20:08 | NUR ---
NURSE HAND-OFF: Important Events on Shift: N/A Patient Status: STABLE Diet: CCHO Pending Orders: N/A Pending Results/Labs: N/A Pending MD notification:N/A Latest Vital Signs: Temperature 98.2 , Pulse 85 , B/P 108 /75 , Respiratory Rate 20 , O2 SAT 93 , Room Air, O2 Flow Rate 2.0 . Vital Sign Comment: UNABLE TO WEAN DOWN O2. PATIENT DESATS, DISCUSSED WITH DR. NGO Latest Bey Fall Score: 35 Fall Risk: Medium Risk Safety Measures: Call light Within Reach, Bed Alarm Zone 1, Side Rails Side Rails x2, Bed position Low and Locked. Fall Precautions: Yellow Socks Patient Fall Education Report given to MELANY HUSTON RN.
[2020-07-02] VITALS: BP 94/66
[2020-07-02 04:00] VITALS: BP 97/64
[2020-07-02] MEDS: NovoLOG Insulin Flexpen SUBQ SCH ×7 (06:01→20:53)
--- NOTE | 2020-07-02 07:28 | NUR ---
NURSE HAND-OFF: Important Events on Shift: Patient Status: stable Diet: CCHO medium, low fat cholesterol Pending Orders: Pending Results/Labs: Pending MD notification: Latest Vital Signs: Temperature 97.8 , Pulse 79 , B/P 97 /64 , Respiratory Rate 18 , O2 SAT 93 , Room Air, O2 Flow Rate 2.0 . Vital Sign Comment: Latest Bey Fall Score: 35 Fall Risk: Medium Risk Safety Measures: Call light Within Reach, Bed Alarm Zone 1, Side Rails Side Rails x2, Bed position Low and Locked. Fall Precautions: Yellow Socks Door Sign Patient Fall Education Report given to Monisha OVIEDO .
[2020-07-02 08:00] VITALS: BP 97/55
--- NOTE | 2020-07-02 08:17 | NUR ---
NURSE NOTES: received report from IVELISSE Lui. patient in bed. A&Ox4, verbally responsive.O2sat 89% on room air. 93%on 2L via NC. no pain at this time. BP was 96/55. lower HOB. IV on Right wrist running NS@50. urinal at bedside. ambulatory. bed in the lowest position and locked. call light within reach. will continue to provide plan of care.
[2020-07-02] MEDS: Tamsulosin 0.4mg cap ORAL SCH (08:41)
[2020-07-02] MEDS ORDERED: Levemir Flexpen SUBQ SCH (10:00)
--- NOTE | 2020-07-02 10:28 | NUR ---
NURSE NOTES: patient blood pressure is low. [employer] ACCOUNT MANAGER checked 83/53. rechecked 97/55. asymptomatic. A&Ox4. verbally responsive. notified Angie Leo NP and received order of NS 500cc bolus one time. order noted and carried out.
--- NOTE | 2020-07-02 10:45 | Pulmonology Progress Note ---
Subjective Constitutional: Reports: fatigue Gastrointestinal/Abdominal: Denies: nausea, vomiting, diarrhea Psychiatric: Denies: depression Skin: Denies: rash Musculoskeletal: Denies: pain Allergies: Coded Allergies: SULFAMETHOXAZOLE (Verified Allergy, Unknown, 12/30/19) Subjective on O2 via NC , no resp distress yesterday 06/30 ambulated and was trying titrate down to RA, but desaturated, still requires supplemental O2 no fevers, mild leukocytosis BP low this am, systolic in 80th , less dizzy, Objective Last 24 Hour Vital Signs Date Time Temp Pulse Resp B/P (MAP) Pulse Ox O2 Delivery O2 Flow Rate FiO2 07/02/20 08:00 96.3 87 18 97/55 (69) 93 07/02/20 04:00 97.8 79 18 97/64 (75) 93 07/02/20 00:00 97.7 71 17 94/66 (75) 92 07/01/20 21:00 Nasal Cannula 2.0 07/01/20 20:00 98.0 90 18 95/59 (71) 92 07/01/20 19:29 98.2 07/01/20 16:00 98.2 85 20 108/75 (86) 93 07/01/20 12:00 97.7 79 18 105/70 (82) 92 Intake and Output 07/01/20 07/02/20 19:00 07:00 Intake Total 2560 ml 980 ml Output Total 1600 ml 950 ml Balance 960 ml 30 ml Intake Oral 1960 ml 480 ml IV Total 600 ml 500 ml Output Urine Total 1600 ml 950 ml # Voids 3 # Bowel Movements 1 Objective General Appearance: no apparent distress, alert , oriented x3 Lines, tubes and drains: peripheral HEENT: normocephalic, atraumatic, anicteric, Neck: non-tender, supple Respiratory/Chest: chest wall non-tender, lungs clear, no respiratory distress Cardiovascular/Chest: normal rate, regular rhythm Abdomen: normal bowel sounds, non tender, soft Extremities: normal range of motion, non-tender, no calf tenderness, normal capillary refill Skin Exam: warm/dry Neurologic: no motor/sensory deficits, alert, oriented x 3, responsive, normal mood/affect Lymphatic: anterior cervical Musculoskeletal: normal muscle bulk Laboratory Tests 07/01/20 12:07: POC Whole Blood Glucose 223H 07/01/20 21:50: POC Whole Blood Glucose 202H Current Medications Medications (Trade) Dose Ordered Sig/Judith Route PRN Reason Start Time Stop Time Status Last Admin Dose Admin Acetaminophen (Tylenol) 650 mg Q4H PRN ORAL Mild Pain (Pain Scale 1-3) 07/01/20 18:30 07/31/20 18:29 Acetaminophen (Tylenol) 650 mg Q4H PRN ORAL Temp >100.5 06/22/20 11:15 07/22/20 11:14 07/01/20 18:59 Albuterol Sulfate (Proventil MDI) 2 puff Q4H PRN INH Shortness of Breath 06/22/20 11:15 09/20/20 11:14 Dextrose (Dextrose 50%) 25 ml Q30M PRN IV Hypoglycemia 06/22/20 11:30 09/20/20 11:29 Dextrose (Dextrose 50%) 50 ml Q30M PRN IV Hypoglycemia 06/22/20 11:30 09/20/20 11:29 Enoxaparin Sodium (Lovenox) 40 mg Q24H SUBQ 06/22/20 17:00 09/20/20 16:59 07/01/20 17:15 Famotidine (Pepcid) 40 mg DAILY ORAL 06/23/20 09:00 09/21/20 08:59 07/02/20 08:41 Guaifenesin/ Dextromethorphan (Robitussin DM Syrup) 10 ml Q4H PRN ORAL For Cough 06/23/20 17:19 09/21/20 17:18 06/24/20 22:35 Insulin Aspart (NovoLOG) BEFORE MEALS AND HS SUBQ 06/22/20 11:30 09/20/20 11:29 07/01/20 21:52 Insulin Aspart (NovoLOG) 3 units NOVOTIAC SUBQ 06/30/20 11:50 09/28/20 11:49 07/02/20 06:03 Insulin Detemir (Levemir) 26 units Q24H SUBQ 07/02/20 10:00 09/22/20 11:29 07/02/20 09:49 Metoclopramide HCl (Reglan) 10 mg Q6H PRN IVP Nausea & Vomiting 06/22/20 11:15 07/22/20 11:14 06/24/20 22:35 Ondansetron HCl (Zofran) 4 mg Q4H PRN IVP Nausea & Vomiting 06/22/20 22:15 07/22/20 22:14 06/28/20 12:14 Sodium Chloride 500 ml @ 999 mls/hr Q31M ONCE IV 07/02/20 10:30 07/02/20 11:00 Sodium Chloride 1,000 ml @ 50 mls/hr Q20H IV 06/22/20 11:15 07/22/20 11:14 07/02/20 03:33 Tamsulosin HCl (Flomax) 0.4 mg DAILY ORAL 06/23/20 09:00 07/23/20 08:59 07/02/20 08:41 Assessment/Plan Assessment/Plan ASSESSMENT COVID 19 pneumonia Dizziness, near syncope with associated nonbloody nonbilious emesis Hypoxia Hypokalemia Hypotension currently Hx of HTN HLD IDDM Gout BPH PLAN OF CARE MS floor isolation Date of sx onset: 4 days prior to presentation to ED on 06/21 Positive test: 06/21 rapid COVID 19 + O2 -> 2 l NC, continue titration HFA s/p REM x 5 days ( 06/24- 06/29 ) s/p Dex x 10 days ( 06/23 -07/02) DVT PPX: Lovenox D dimer 0.19 Trend CRP 6.0-17.4-5.5-30.5 Abx per ID recs, completed a/tussive prn CXR 06/29 Slightly increased bilateral infiltrates, likely indicating worsening pneumonia Nodular opacity at the right lung base, not evident previously and therefore presumably representing focal area of consolidation. Monitor volumes and renal function bolus 500 cc NS now clsoely monitor hemodynamics Fup with consultants recs FC Discuss GOC CT head negative serial troponin NGT, ECG non ischemic, ruled out for acute NM ECHO with pEF, no evidence of WMA dizziness may be due to COVID infection , in addition may have some dehydration due to associated emesis on IV hydration, continue , decrease rate given improved BP GI prophylaxis BS management HgA1c 9.7, not at goal off metformin and on LA Levemir, dose increased to 24 ( home dose) + 3 u premeal insulin + SSI BP management, currently hold off all anti HTN continue Flomax fall precautions supportive care case discussed and evaluated by supervising physician Angie Leo NP Jul 02, 2020 10:45 Sid Borges MD Jul 02, 2020 17:33
--- NOTE | 2020-07-02 10:51 | NUR ---
COMMUNITY ENGAGEMENT LEADER NOTE CALL MADE TO [employer] [phone]. ZACKERY LEFT FOR LUCRECIA NEAL IN RE TO HOME O2 NEED. WILL FOLOW UP.
[2020-07-02 12:00] VITALS: BP 91/58
[2020-07-02 16:00] VITALS: BP 117/79
--- NOTE | 2020-07-02 16:52 | NUR ---
CASE MANAGEMENT:REVIEW SI;COVID PNEUMONIA 98.1 96 21 91/58 92% 2L NC GLU 232 IS;IVF NS BOLUS IVF NS @ 60 ML/HR INSULIN LEVEMIR SQ QD FLOMAX PO QD PEPCID PO QD INSULIN NOVOLOG SS SQ QID MED SURG STATUS DCP;PATIENT IS FROM HOME PLAN; TITRATE O2 RA TRIALS
--- NOTE | 2020-07-02 16:58 | Cardiac Electrophysiology PN ---
Assessment/Plan Assessment/Plan 1. Shortness of breath. Ruled out for [place]. Echo EF 60% 2. COVID pneumonia, in isolation. On steroid and remdesivir and antibiotic. On 2 liter NC 3. Uncontrolled Diabetes, on metformin and insulin. 4. Hyperlipidemia. 5. Hypotension. Improved with NS 6. Vomiting, could be due to COVID infection. CORY RN Subjective Subjective In covid isolation in NAD on 2 liter NC.VSS Objective Last 24 Hour Vital Signs Date Time Temp Pulse Resp B/P (MAP) Pulse Ox O2 Delivery O2 Flow Rate FiO2 07/02/20 16:00 98.1 96 21 117/79 (92) 95 07/02/20 12:00 96.4 81 20 91/58 (69) 95 07/02/20 09:00 Nasal Cannula 2.0 07/02/20 08:00 96.3 87 18 97/55 (69) 93 07/02/20 04:00 97.8 79 18 97/64 (75) 93 07/02/20 00:00 97.7 71 17 94/66 (75) 92 07/01/20 21:00 Nasal Cannula 2.0 07/01/20 20:00 98.0 90 18 95/59 (71) 92 07/01/20 19:29 98.2 Intake and Output 07/01/20 07/02/20 18:59 06:59 Intake Total 2560 ml 1030 ml Output Total 1600 ml 950 ml Balance 960 ml 80 ml Intake Oral 1960 ml 480 ml IV Total 600 ml 550 ml Output Urine Total 1600 ml 950 ml # Voids 3 # Bowel Movements 1 Laboratory Tests Test 07/01/20 17:18 07/01/20 17:20 07/01/20 21:50 07/02/20 05:58 POC Whole Blood Glucose 177 MG/DL (74-106) H 180 MG/DL (74-106) H 202 MG/DL (74-106) H 111 MG/DL (74-106) H Test 07/02/20 09:47 07/02/20 11:09 07/02/20 12:15 07/02/20 16:39 POC Whole Blood Glucose Pending 228 MG/DL (74-106) H 232 MG/DL (74-106) H C-Reactive Protein, Quantitative Pending Objective HEAD AND NECK: Shows no JVD. LUNGS: Coarse rhonchi. CARDIOVASCULAR: Shows regular S1 and S2 with no gallop. ABDOMEN: Soft. EXTREMITIES: No pitting edema. Néstor Riley MD Jul 02, 2020 16:58
[2020-07-02] MEDS: Enoxaparin 40mg Inj SUBQ SCH (17:26)
--- NOTE | 2020-07-02 18:02 | Infectious Diseases Prog Note ---
Assessment/Plan Assessment/Plan ASSESSMENT AND PLAN: 1. covid-19 virus infection with pna, ? CAP, hypoxia leukocytosis likely secondary to steroids - s/p dexamethasone and remdesivir - s/p azithromycin and ceftriaxone - monitor hypoxia, labs and chest x-ray - clinically better, patient feels better, sats stable 2. Syncope. Workup per Primary and Cardiology. 3. Diabetes. 4. Hypertension. 5. Blood pressure and blood sugar treatment per primary care team. 6. Dyslipidemia. 7. Asthma. 8. GERD. 9. Gout. 10. Continue treatment per primary consultants. 11. Allergies to sulfamethoxazole. 12. Social history is negative. 13. Family history is noncontributory. 14. MAR is noted. 15. Case discussed with RN. Subjective Constitutional: Reports: fatigue; Denies: fever HEENT: Denies: congestion Respiratory: Denies: shortness of breath Cardiovascular: Denies: chest pain Gastrointestinal/Abdominal: Denies: nausea, vomiting, diarrhea Genitourinary: Reports: other - no mark Neurologic: Denies: headache Psychiatric: Denies: depression Skin: Denies: rash Hematologic: Denies: bleeding Musculoskeletal: Denies: pain Allergies: Coded Allergies: SULFAMETHOXAZOLE (Verified Allergy, Unknown, 12/30/19) Objective Last 24 Hour Vital Signs Date Time Temp Pulse Resp B/P (MAP) Pulse Ox O2 Delivery O2 Flow Rate FiO2 07/02/20 16:00 98.1 96 21 117/79 (92) 95 07/02/20 12:00 96.4 81 20 91/58 (69) 95 07/02/20 09:00 Nasal Cannula 2.0 07/02/20 08:00 96.3 87 18 97/55 (69) 93 07/02/20 04:00 97.8 79 18 97/64 (75) 93 07/02/20 00:00 97.7 71 17 94/66 (75) 92 07/01/20 21:00 Nasal Cannula 2.0 07/01/20 20:00 98.0 90 18 95/59 (71) 92 07/01/20 19:29 98.2 Height (Feet): 5 Height (Inches): 1.00 Weight (Pounds): 155 General Appearance: no acute distress HEENT: normocephalic, atraumatic, anicteric, mucous membranes moist Respiratory/Chest: crackles/rales, rhonchi - bilaterally Cardiovascular: normal rate, regular rhythm, no gallop/murmur, no JVD Abdomen: normal bowel sounds, soft, non tender, no organomegaly Genitourinary: other - no mark Extremities: no cyanosis Skin: no rash Neurologic/Psychiatric: paper cutter II-XII grossly normal, alert, responsive Lymphatic: no neck adenopathy Musculoskeletal: no effusion Chest x-ray - 06/24/20 - Procedure: XRAY Chest 1v Indication: Reason For Exam: SOB Technique: One view of the chest Comparison: 06/21/2020 Findings: Interim development of streaky right perihilar and left mid to lower lung perihilar and peripheral infiltrates. Normal heart size and pleural spaces remain clear Impression: New bilateral infiltrates, likely multifocal pneumonia, appearance nonspecific as regards etiology Chest x-ray 06/26/20 - FINDINGS: Lungs: Patchy pulmonary infiltrates, most confluent in the left lung base. Pleural space: Unremarkable. No pneumothorax. Heart: Unremarkable. No cardiomegaly. Mediastinum: Unremarkable. Bones/joints: No acute fracture. Other findings: 06/26/20 at 1322 IMPRESSION: Patchy pulmonary infiltrates, most confluent in the left lung base. Chest x-ray - 06/29/20: Procedure: XRAY Chest 1v Indication: Shortness of breath Technique: One view of the chest Comparison: 06/26/2020 Findings: Again demonstrated are bilateral peripheral streaky infiltrates, appearing slightly increased. There is a nodular opacity at the right lung base which was not evident previously. There is very slight blunting of right costophrenic sulcus Impression: Slightly increased bilateral infiltrates, likely indicating worsening pneumonia Nodular opacity at the right lung base, not evident previously and therefore presumably representing focal area of consolidation. Possible developing trace right pleural effusion Microbiology Date/Time Source Procedure Growth Status 06/21/20 20:00 Nasopharynx SARS-CoV-2 RdRp Gene Assay - Final Complete Microbiology Date/Time Source Procedure Growth Status 06/21/20 20:00 Nasopharynx SARS-CoV-2 RdRp Gene Assay - Final Complete Labs Test 06/30/20 00:38 06/30/20 05:37 06/30/20 11:07 06/30/20 16:12 POC Whole Blood Glucose 268 MG/DL (74-106) 287 MG/DL (74-106) 361 MG/DL (74-106) 387 MG/DL (74-106) Test 06/30/20 20:34 07/01/20 05:50 07/01/20 06:06 07/01/20 12:07 POC Whole Blood Glucose 242 MG/DL (74-106) 74 MG/DL (74-106) 223 MG/DL (74-106) White Blood Count 14.1 K/UL (4.8-10.8) Red Blood Count 5.17 M/UL (4.70-6.10) Hemoglobin 16.2 G/DL (14.2-18.0) Hematocrit 47.4 % (42.0-52.0) Mean Corpuscular Volume 92 FL (80-99) Mean Corpuscular Hemoglobin 31.3 PG (27.0-31.0) Mean Corpuscular Hemoglobin Concent 34.1 G/DL (32.0-36.0) Red Cell Distribution Width 12.4 % (11.6-14.8) Platelet Count 399 K/UL (150-450) Mean Platelet Volume 6.7 FL (6.5-10.1) Neutrophils (%) (Auto) 74.7 % (45.0-75.0) Lymphocytes (%) (Auto) 13.5 % (20.0-45.0) Monocytes (%) (Auto) 9.9 % (1.0-10.0) Eosinophils (%) (Auto) 1.3 % (0.0-3.0) Basophils (%) (Auto) 0.6 % (0.0-2.0) Sodium Level 140 MMOL/L (136-145) Potassium Level 3.7 MMOL/L (3.5-5.1) Chloride Level 107 MMOL/L (98-107) Carbon Dioxide Level 27 MMOL/L (21-32) Anion Gap 7 mmol/L (5-15) Blood Urea Nitrogen 19 mg/dL (7-18) Creatinine 1.0 MG/DL (0.55-1.30) Estimat Glomerular Filtration Rate > 60 mL/min (>60) Glucose Level 82 MG/DL (74-106) Calcium Level 8.7 MG/DL (8.5-10.1) Test 07/01/20 17:18 07/01/20 17:20 07/01/20 21:50 07/02/20 05:58 POC Whole Blood Glucose 177 MG/DL (74-106) 180 MG/DL (74-106) 202 MG/DL (74-106) 111 MG/DL (74-106) Test 07/02/20 09:47 07/02/20 11:09 07/02/20 12:15 07/02/20 16:39 POC Whole Blood Glucose 228 MG/DL (74-106) 232 MG/DL (74-106) Laboratory Tests Test 07/01/20 21:50 07/02/20 05:58 07/02/20 09:47 07/02/20 11:09 POC Whole Blood Glucose 202 MG/DL (74-106) H 111 MG/DL (74-106) H Pending 228 MG/DL (74-106) H Test 07/02/20 12:15 07/02/20 16:39 C-Reactive Protein, Quantitative Pending POC Whole Blood Glucose 232 MG/DL (74-106) H Current Medications Medications (Trade) Dose Ordered Sig/Judith Route PRN Reason Start Time Stop Time Status Last Admin Dose Admin Acetaminophen (Tylenol) 650 mg Q4H PRN ORAL Mild Pain (Pain Scale 1-3) 07/01/20 18:30 07/31/20 18:29 Acetaminophen (Tylenol) 650 mg Q4H PRN ORAL Temp >100.5 06/22/20 11:15 07/22/20 11:14 07/01/20 18:59 Albuterol Sulfate (Proventil MDI) 2 puff Q4H PRN INH Shortness of Breath 06/22/20 11:15 09/20/20 11:14 Dextrose (Dextrose 50%) 25 ml Q30M PRN IV Hypoglycemia 06/22/20 11:30 09/20/20 11:29 Dextrose (Dextrose 50%) 50 ml Q30M PRN IV Hypoglycemia 06/22/20 11:30 09/20/20 11:29 Enoxaparin Sodium (Lovenox) 40 mg Q24H SUBQ 06/22/20 17:00 09/20/20 16:59 07/02/20 17:26 Famotidine (Pepcid) 40 mg DAILY ORAL 06/23/20 09:00 09/21/20 08:59 07/02/20 08:41 Guaifenesin/ Dextromethorphan (Robitussin DM Syrup) 10 ml Q4H PRN ORAL For Cough 06/23/20 17:19 09/21/20 17:18 06/24/20 22:35 Insulin Aspart (NovoLOG) BEFORE MEALS AND HS SUBQ 06/22/20 11:30 09/20/20 11:29 07/02/20 17:25 Insulin Aspart (NovoLOG) 3 units NOVOTIAC SUBQ 06/30/20 11:50 09/28/20 11:49 07/02/20 17:25 Insulin Detemir (Levemir) 16 units BID SUBQ 07/03/20 09:00 09/22/20 11:29 Metoclopramide HCl (Reglan) 10 mg Q6H PRN IVP Nausea & Vomiting 06/22/20 11:15 07/22/20 11:14 06/24/20 22:35 Ondansetron HCl (Zofran) 4 mg Q4H PRN IVP Nausea & Vomiting 06/22/20 22:15 07/22/20 22:14 06/28/20 12:14 Sodium Chloride 1,000 ml @ 60 mls/hr [id number] IV 06/22/20 11:15 07/22/20 11:14 07/02/20 03:33 Tamsulosin HCl (Flomax) 0.4 mg DAILY ORAL 06/23/20 09:00 07/23/20 08:59 07/02/20 08:41 Sidra Lowry MD Jul 02, 2020 18:01
--- NOTE | 2020-07-02 19:21 | NUR ---
NURSE HAND-OFF: Important Events on Shift:monitor O2sat, BS Patient Status: stable, SOB exertion Diet: CCHO m, low fat Pending Orders: n/a Pending Results/Labs:n/a Pending MD notification:n/a Latest Vital Signs: Temperature 98.1 , Pulse 96 , B/P 117 /79 , Respiratory Rate 21 , O2 SAT 95 , Room Air, O2 Flow Rate 2.0 . Vital Sign Comment: stable Latest Bey Fall Score: 35 Fall Risk: Medium Risk Safety Measures: Call light Within Reach, Bed Alarm Zone 1, Side Rails Side Rails x2, Bed position Low and Locked. Fall Precautions: Yellow Socks Door Sign Patient Fall Education Report given to IVELISSE Nevarez.
--- NOTE | 2020-07-02 19:30 | NUR ---
NURSE NOTES: Received report & pt from IVELISSE Bearden. Pt in bed, a&ox4, on O2 via NC @ 3LPM. No s/s of acute distress & no c/o pain at this time. IV site intact with IVF running as ordered. Plan of care discussed.
[2020-07-02 20:03] VITALS: BP 133/82
[2020-07-03] VITALS: BP 101/69
[2020-07-03 04:00] VITALS: BP 116/90
[2020-07-03] MEDS: NovoLOG Insulin Flexpen SUBQ SCH ×7 (05:48→21:29)
[2020-07-03 05:53] LABS: BASOPHILS % (AUTO) 0.9 % (0.0-2.0); EOSINOPHILS % (AUTO) 1.6 % (0.0-3.0); HEMATOCRIT 44.6 % (42.0-52.0); HEMOGLOBIN 15.5 G/DL (14.2-18.0); LYMPHOCYTES % (AUTO) 14.5 % (20.0-45.0); MEAN CORPUSCULAR VOLUME 90 FL (80-99); MONOCYTES % (AUTO) 12.5 % (1.0-10.0); NEUTROPHILS % (AUTO) 70.4 % (45.0-75.0); PLATELET COUNT 335 K/UL (150-450); RED BLOOD COUNT 4.95 M/UL (4.70-6.10); RED CELL DISTRIBUTION WIDTH 12.5 % (11.6-14.8); WHITE BLOOD COUNT 9.7 K/UL (4.8-10.8)
--- NOTE | 2020-07-03 06:37 | NUR ---
NURSE HAND-OFF: Important Events on Shift: none Patient Status: stable Diet: ccho (m) low fat low cholesterol. No coffee. Pending Orders: CXR Pending Results/Labs: Pending MD notification: Latest Vital Signs: Temperature 98.1 , Pulse 92 , B/P 116 /90 , Respiratory Rate 18 , O2 SAT 92 , Room Air, O2 Flow Rate 2.0 . Vital Sign Comment: Latest Bey Fall Score: 35 Fall Risk: Medium Risk Safety Measures: Call light Within Reach, Bed Alarm Zone 1, Side Rails Side Rails x2, Bed position Low and Locked. Fall Precautions: Yellow Socks Door Sign Patient Fall Education Report given to IVELISSE Bailey.
[2020-07-03 08:00] VITALS: BP 105/73
--- NOTE | 2020-07-03 08:08 | NUR ---
NURSE NOTES: Patient awake, alert x4; on Nasal Cannula 3 liters, no sing of distress and shortness of breath; no sing of chest pain; IV RW flushes well; side rails up x2, breaks engaged, bed at lowest position; call light within reach; will keep monitoring.
[2020-07-03] MEDS: Tamsulosin 0.4mg cap ORAL SCH (08:48)
[2020-07-03] MEDS: Levemir Flexpen SUBQ SCH ×2 (08:49→17:07)
--- NOTE | 2020-07-03 10:02 | Cardiology Report ---
APPROVED REPORT EXAM: Two-dimensional and M-mode echocardiogram with Doppler and color Doppler. INDICATION Shortness of breath M-Mode DIMENSIONS IVSd0.9 (0.7-1.1cm)Left Atrium (MM)2.4 (1.6-4.0cm) LVDd4.3 (3.5-5.6cm)Aortic Root2.6 (2.0-3.7cm) PWd0.9 (0.7-1.1cm)Aortic Cusp Exc.1.6 (1.5-2.0cm) IVSs1.6 cmEPSS0.6 (>1.0cm) LVDs2.7 (2.5-4.0cm) PWs1.2 cm <Conclusion> Technically difficult study due to poor acoustical windows. Left ventricular ejection fraction estimated to be 60 %. No evidence of left ventricular hypertrophy. No evidence of pericardial effusion. All other cardiac chamber sizes are within normal limits. Focal aortic valve sclerosis with adequate cusp excursion. Thickened mitral valve leaflets with normal excursion. Mitral annulus and aortic root calcification. Pulmonic valve not well visualized. Normal tricuspid valve structure. IVC at normal size with physiologic collapse. A color flow and spectral Doppler study was performed and revealed: Trace aortic regurgitation. Trace mitral regurgitation. Mitral diastolic velocities suggest reduced left ventricular relaxation c/w mild LV diastolic dysfunction (Grade I ) Trace tricuspid regurgitation. Tricuspid systolic velocities suggests peak right ventricular systolic pressure of 7 mmHg
--- NOTE | 2020-07-03 10:54 | Pulmonology Progress Note ---
Subjective Allergies: Coded Allergies: SULFAMETHOXAZOLE (Verified Allergy, Unknown, 12/30/19) Subjective on O2 via NC , no resp distress BP better no fevers, mild leukocytosis resolved BS 133 this am Objective Last 24 Hour Vital Signs Date Time Temp Pulse Resp B/P (MAP) Pulse Ox O2 Delivery O2 Flow Rate FiO2 07/03/20 08:00 98.0 88 18 105/73 (84) 94 07/03/20 04:00 98.1 92 18 116/90 (99) 92 07/03/20 00:00 98.2 88 18 101/69 (80) 94 07/02/20 21:00 Nasal Cannula 2.0 07/02/20 20:03 98.6 108 18 133/82 (99) 93 07/02/20 16:00 98.1 96 21 117/79 (92) 95 07/02/20 12:00 96.4 81 20 91/58 (69) 95 Intake and Output0 07/02/20 07/03/20 19:00 07:00 Intake Total 950 ml 1450 ml Output Total 2800 ml Balance 950 ml -1350 ml Intake Oral 600 ml 800 ml IV Total 350 ml 650 ml Output Urine Total 2800 ml # Voids 3 Objective General Appearance: no apparent distress, alert , oriented x3 Lines, tubes and drains: peripheral HEENT: normocephalic, atraumatic, anicteric, Neck: non-tender, supple Respiratory/Chest: chest wall non-tender, lungs clear, no respiratory distress Cardiovascular/Chest: normal rate, regular rhythm Abdomen: normal bowel sounds, non tender, soft Extremities: normal range of motion, non-tender, no calf tenderness, normal capillary refill Skin Exam: warm/dry Neurologic: no motor/sensory deficits, alert, oriented x 3, responsive, normal mood/affect Lymphatic: anterior cervical Musculoskeletal: normal muscle bulk Laboratory Tests 07/02/20 11:09: POC Whole Blood Glucose 228H 07/02/20 12:15: C-Reactive Protein, Quantitative 60.7H 07/02/20 16:39: POC Whole Blood Glucose 232H 07/03/20 04:30: White Blood Count 9.7, Red Blood Count 4.95, Hemoglobin 15.5, Hematocrit 44.6, Mean Corpuscular Volume 90, Mean Corpuscular Hemoglobin 31.2H, Mean Corpuscular Hemoglobin Concent 34.7, Red Cell Distribution Width 12.5, Platelet Count 335, Mean Platelet Volume 5.9L, Neutrophils (%) (Auto) 70.4, Lymphocytes (%) (Auto) 14.5L, Monocytes (%) (Auto) 12.5H, Eosinophils (%) (Auto) 1.6, Basophils (%) (Auto) 0.9 Current Medications Medications (Trade) Dose Ordered Sig/Judith Route PRN Reason Start Time Stop Time Status Last Admin Dose Admin Acetaminophen (Tylenol) 650 mg Q4H PRN ORAL Mild Pain (Pain Scale 1-3) 07/01/20 18:30 07/31/20 18:29 Acetaminophen (Tylenol) 650 mg Q4H PRN ORAL Temp >100.5 06/22/20 11:15 07/22/20 11:14 07/01/20 18:59 Albuterol Sulfate (Proventil MDI) 2 puff Q4H PRN INH Shortness of Breath 06/22/20 11:15 09/20/20 11:14 Dextrose (Dextrose 50%) 25 ml Q30M PRN IV Hypoglycemia 06/22/20 11:30 09/20/20 11:29 Dextrose (Dextrose 50%) 50 ml Q30M PRN IV Hypoglycemia 06/22/20 11:30 09/20/20 11:29 Enoxaparin Sodium (Lovenox) 40 mg Q24H SUBQ 06/22/20 17:00 09/20/20 16:59 07/02/20 17:26 Famotidine (Pepcid) 40 mg DAILY ORAL 06/23/20 09:00 09/21/20 08:59 07/03/20 08:48 Guaifenesin/ Dextromethorphan (Robitussin DM Syrup) 10 ml Q4H PRN ORAL For Cough 06/23/20 17:19 09/21/20 17:18 06/24/20 22:35 Insulin Aspart (NovoLOG) BEFORE MEALS AND HS SUBQ 06/22/20 11:30 09/20/20 11:29 07/02/20 20:53 Insulin Aspart (NovoLOG) 3 units NOVOTIAC SUBQ 06/30/20 11:50 09/28/20 11:49 07/03/20 05:48 Insulin Detemir (Levemir) 16 units BID SUBQ 07/03/20 09:00 09/22/20 11:29 07/03/20 08:49 Metoclopramide HCl (Reglan) 10 mg Q6H PRN IVP Nausea & Vomiting 06/22/20 11:15 07/22/20 11:14 06/24/20 22:35 Ondansetron HCl (Zofran) 4 mg Q4H PRN IVP Nausea & Vomiting 06/22/20 22:15 07/22/20 22:14 06/28/20 12:14 Sodium Chloride 1,000 ml @ 60 mls/hr [id number] IV 06/22/20 11:15 07/22/20 11:14 07/02/20 20:43 Tamsulosin HCl (Flomax) 0.4 mg DAILY ORAL 06/23/20 09:00 07/23/20 08:59 07/03/20 08:48 Assessment/Plan Assessment/Plan ASSESSMENT COVID 19 pneumonia Dizziness, near syncope with associated nonbloody nonbilious emesis Hypoxia Hypokalemia Hypotension currently Hx of HTN HLD IDDM Gout BPH PLAN OF CARE MS floor isolation Date of sx onset: 4 days prior to presentation to ED on 06/21 Positive test: 06/21 rapid COVID 19 + O2 -> 2 l NC, continue titration HFA s/p REM x 5 days ( 06/24- 06/29 ) s/p Dex x 10 days ( 06/23 -07/02) DVT PPX: Lovenox D dimer 0.19 Trend CRP 6.0-17.4-5.5-30.5-60.7 Abx per ID recs, completed a/tussive prn CXR 06/29 Slightly increased bilateral infiltrates, likely indicating worsening pneumonia Nodular opacity at the right lung base, not evident previously and therefore presumably representing focal area of consolidation. Monitor volumes and renal function BP better after bolus and contin IVF closely monitor hemodynamics remove O2 for 30 min , check pulse ox and ambulate, if pulse ox > 90% , then dc plan Fup with consultants recs FC Discuss GOC CT head negative serial troponin NGT, ECG non ischemic, ruled out for acute [place] ECHO with pEF, no evidence of WMA dizziness may be due to COVID infection , in addition may have some dehydration due to associated emesis on IV hydration, continue , decrease rate given improved BP GI prophylaxis BS management HgA1c 9.7, not at goal off metformin and on LA Levemir, dose increased to 16 bid + 3 u premeal insulin + SSI , BS 133 this am, BP management, currently hold off all anti HTN continue Flomax fall precautions supportive care case discussed and evaluated by supervising physician Angie Leo NP Jul 03, 2020 10:54
[2020-07-03 12:00] VITALS: BP 123/73
--- NOTE | 2020-07-03 12:05 | Diagnostic Imaging Report ---
Indication: Shortness of breath Technique: XRAY Chest 1v Comparison: 06/29/2020 Findings: Worsening aeration with increasing bilateral infiltrates with now somewhat confluent infiltrates noted in the periphery bilaterally. No significant pleural effusion. No pneumothorax. Heart size and mediastinal contours are stable. Osseous structures are stable. Impression: Worsening aeration with increasing bilateral infiltrates.
--- NOTE | 2020-07-03 15:48 | Cardiac Electrophysiology PN ---
Assessment/Plan Assessment/Plan 1. Shortness of breath. Ruled out for CO. Echo EF 60% 2. COVID pneumonia, in isolation. On steroid and remdesivir and antibiotic. On 2 liter NC 3. Uncontrolled Diabetes, on metformin and insulin. 4. Hyperlipidemia. 5. Hypotension. Improved with NS 6. Vomiting, could be due to COVID infection. CORY RN Subjective Subjective In covid isolation in NAD on 2 liter NC.VSS. Alert and oriented Objective Last 24 Hour Vital Signs Date Time Temp Pulse Resp B/P (MAP) Pulse Ox O2 Delivery O2 Flow Rate FiO2 07/03/20 12:00 97.7 89 18 123/73 (90) 92 07/03/20 09:00 Nasal Cannula 2.0 07/03/20 08:00 98.0 88 18 105/73 (84) 94 07/03/20 04:00 98.1 92 18 116/90 (99) 92 07/03/20 00:00 98.2 88 18 101/69 (80) 94 07/02/20 21:00 Nasal Cannula 2.0 07/02/20 20:03 98.6 108 18 133/82 (99) 93 07/02/20 16:00 98.1 96 21 117/79 (92) 95 Intake and Output 07/02/20 07/03/20 19:00 07:00 Intake Total 950 ml 1450 ml Output Total 2800 ml Balance 950 ml -1350 ml Intake Oral 600 ml 800 ml IV Total 350 ml 650 ml Output Urine Total 2800 ml # Voids 3 Laboratory Tests Test 07/02/20 16:39 07/03/20 04:30 POC Whole Blood Glucose 232 MG/DL (74-106) H White Blood Count 9.7 K/UL (4.8-10.8) Red Blood Count 4.95 M/UL (4.70-6.10) Hemoglobin 15.5 G/DL (14.2-18.0) Hematocrit 44.6 % (42.0-52.0) Mean Corpuscular Volume 90 FL (80-99) Mean Corpuscular Hemoglobin 31.2 PG (27.0-31.0) H Mean Corpuscular Hemoglobin Concent 34.7 G/DL (32.0-36.0) Red Cell Distribution Width 12.5 % (11.6-14.8) Platelet Count 335 K/UL (150-450) Mean Platelet Volume 5.9 FL (6.5-10.1) L Neutrophils (%) (Auto) 70.4 % (45.0-75.0) Lymphocytes (%) (Auto) 14.5 % (20.0-45.0) L Monocytes (%) (Auto) 12.5 % (1.0-10.0) H Eosinophils (%) (Auto) 1.6 % (0.0-3.0) Basophils (%) (Auto) 0.9 % (0.0-2.0) Objective HEAD AND NECK: Shows no JVD. LUNGS: Coarse rhonchi. CARDIOVASCULAR: Shows regular S1 and S2 with no gallop. ABDOMEN: Soft. EXTREMITIES: No pitting edema. Néstor Riley MD Jul 03, 2020 15:48
--- NOTE | 2020-07-03 15:51 | NUR ---
CASE MANAGEMENT:REVIEW SI;COVID PNEUMONIA 98.2 92 18 123/73 92% 2L NC IS;FLOMAX PO QD PEPCID PO QD LOVENOX SQ QD IVF NS @ 60 ML/HR MED SURG STATUS DCP;FROM HOME
[2020-07-03 16:00] VITALS: BP 128/83
[2020-07-03] MEDS: Enoxaparin 40mg Inj SUBQ SCH (17:09)
--- NOTE | 2020-07-03 17:25 | NUR ---
NURSE NOTES: Tried to wean off oxygen from Nasal Cannula 2 Liters; patient sats 88%; charge nurse Carlos is aware;
--- NOTE | 2020-07-03 18:28 | NUR ---
NURSE HAND-OFF: Important Events on Shift:Tried to wean pateint off oxygen; pateint sats 88%; REGISTERED DIETITIAN Anige aware. Patient Status: Diet: Pending Orders: Pending Results/Labs: Pending MD notification: Latest Vital Signs: Temperature 97.2 , Pulse 105 , B/P 128 /83 , Respiratory Rate 18 , O2 SAT 88 , Room Air, O2 Flow Rate 2.0 . Vital Sign Comment: Latest Bey Fall Score: 35 Fall Risk: Medium Risk Safety Measures: Call light Within Reach, Bed Alarm Zone 1, Side Rails Side Rails x2, Bed position Low and Locked. Fall Precautions: Yellow Socks Door Sign Patient Fall Education Report given to .
--- NOTE | 2020-07-03 19:18 | NUR ---
HAND-OFF: Report given to IVELISSE Wise.
[2020-07-03 20:00] VITALS: BP 103/68
--- NOTE | 2020-07-03 20:20 | NUR ---
Report given by Frankie. Pt awake alert oriented x4 able to make needs known. no acute distress noted. Pt on 02@ 2liters/min nasal canula 02 sat 95%. IV to right hand with NS@ 60cc/hr no infiltration noted. Pt void with urinal at bedside. BS taken ACHS no s/s of hyperglycemia /hypoglycemia noted. COVID precautions maintained. Bed in lowest position call light in reach. will continue to monitor and provide care as ordered.
[2020-07-04] VITALS: BP 117/60
[2020-07-04 04:00] VITALS: BP 116/74
[2020-07-04] MEDS: NovoLOG Insulin Flexpen SUBQ SCH ×7 (06:30→22:16)
--- NOTE | 2020-07-04 07:47 | NUR ---
NURSE NOTES: Patient awake, alert x4; on Nasal cannula 3 liters, no sing of distress and shortness of breath; no sing of chest pain; IV RW fluid running; patient ambulatory; Urinal within reach; side rails up x2, breaks engaged, bed at lowest position; call light within reach; will keep monitoring.
[2020-07-04 08:00] VITALS: BP 94/69
--- NOTE | 2020-07-04 08:21 | Pulmonology Progress Note ---
Subjective Allergies: Coded Allergies: SULFAMETHOXAZOLE (Verified Allergy, Unknown, 12/30/19) Subjective on O2 via NC , no resp distress but desaturates to 88 and below when off O2 , BP better no fevers, leukocytosis resolved BS better Objective Last 24 Hour Vital Signs Date Time Temp Pulse Resp B/P (MAP) Pulse Ox O2 Delivery O2 Flow Rate FiO2 07/04/20 04:00 98.4 18 116/74 (88) 84 07/04/20 00:00 98.2 18 117/60 (79) 88 07/03/20 21:00 Nasal Cannula 2.0 07/03/20 20:00 98.9 99 19 103/68 (80) 86 07/03/20 16:00 97.2 105 18 128/83 (98) 88 07/03/20 12:00 97.7 89 18 123/73 (90) 92 07/03/20 09:00 Nasal Cannula 2.0 Intake and Output 07/03/20 07/04/20 19:00 07:00 Intake Total 660 ml Output Total 800 ml 1500 ml Balance -140 ml -1500 ml IV Total 660 ml Output Urine Total 800 ml 1500 ml # Voids 4 Objective General Appearance: no apparent distress, alert , oriented x3 Lines, tubes and drains: peripheral HEENT: normocephalic, atraumatic, anicteric, Neck: non-tender, supple Respiratory/Chest: chest wall non-tender, lungs clear, no respiratory distress Cardiovascular/Chest: normal rate, regular rhythm Abdomen: normal bowel sounds, non tender, soft Extremities: normal range of motion, non-tender, no calf tenderness, normal capillary refill Skin Exam: warm/dry Neurologic: no motor/sensory deficits, alert, oriented x 3, responsive, normal mood/affect Lymphatic: anterior cervical Musculoskeletal: normal muscle bulk Laboratory Tests 07/03/20 21:16: POC Whole Blood Glucose 173H 07/04/20 05:18: POC Whole Blood Glucose 108H Current Medications Medications (Trade) Dose Ordered Sig/Judith Route PRN Reason Start Time Stop Time Status Last Admin Dose Admin Acetaminophen (Tylenol) 650 mg Q4H PRN ORAL Mild Pain (Pain Scale 1-3) 07/01/20 18:30 07/31/20 18:29 Acetaminophen (Tylenol) 650 mg Q4H PRN ORAL Temp >100.5 06/22/20 11:15 07/22/20 11:14 07/01/20 18:59 Albuterol Sulfate (Proventil MDI) 2 puff Q4H PRN INH Shortness of Breath 06/22/20 11:15 09/20/20 11:14 Dextrose (Dextrose 50%) 25 ml Q30M PRN IV Hypoglycemia 06/22/20 11:30 09/20/20 11:29 Dextrose (Dextrose 50%) 50 ml Q30M PRN IV Hypoglycemia 06/22/20 11:30 09/20/20 11:29 Enoxaparin Sodium (Lovenox) 40 mg Q24H SUBQ 06/22/20 17:00 09/20/20 16:59 07/03/20 17:09 Famotidine (Pepcid) 40 mg DAILY ORAL 06/23/20 09:00 09/21/20 08:59 07/03/20 08:48 Guaifenesin/ Dextromethorphan (Robitussin DM Syrup) 10 ml Q4H PRN ORAL For Cough 06/23/20 17:19 09/21/20 17:18 06/24/20 22:35 Insulin Aspart (NovoLOG) BEFORE MEALS AND HS SUBQ 06/22/20 11:30 09/20/20 11:29 07/04/20 06:46 Insulin Aspart (NovoLOG) 3 units NOVOTIAC SUBQ 06/30/20 11:50 09/28/20 11:49 07/03/20 17:07 Insulin Detemir (Levemir) 16 units BID SUBQ 07/03/20 09:00 09/22/20 11:29 07/03/20 17:07 Metoclopramide HCl (Reglan) 10 mg Q6H PRN IVP Nausea & Vomiting 06/22/20 11:15 07/22/20 11:14 06/24/20 22:35 Ondansetron HCl (Zofran) 4 mg Q4H PRN IVP Nausea & Vomiting 06/22/20 22:15 07/22/20 22:14 06/28/20 12:14 Sodium Chloride 1,000 ml @ 60 mls/hr [id number] IV 06/22/20 11:15 07/22/20 11:14 07/04/20 07:01 Tamsulosin HCl (Flomax) 0.4 mg DAILY ORAL 06/23/20 09:00 07/23/20 08:59 07/03/20 08:48 Assessment/Plan Assessment/Plan ASSESSMENT COVID 19 pneumonia Dizziness, near syncope with associated nonbloody nonbilious emesis Hypoxia Hypokalemia Hypotension currently Hx of HTN HLD IDDM Gout BPH PLAN OF CARE MS floor isolation Date of sx onset: 4 days prior to presentation to ED on 06/21 Positive test: 06/21 rapid COVID 19 + O2 -> 2 l NC, continue titration , so far unable to wean from o2 HFA s/p REM x 5 days ( 06/24- 06/29 ) s/p Dex x 10 days ( 06/23 -07/02) DVT PPX: Lovenox D dimer 0.19 Trend CRP 6.0-17.4-5.5-30.5-60.7-pending for this am Abx per ID recs, completed a/tussive prn CXR 07/02 Worsening aeration with increasing bilateral infiltrates. get Venous Duplex BLE CRP up, CXR worse, continue o2 and close monitoring of resp status may need O2 on dc Monitor volumes and renal function BP better - will dc IVF closely monitor hemodynamics Fup with consultants recs FC Discuss GOC CT head negative serial troponin NGT, ECG non ischemic, ruled out for acute [place] ECHO with pEF, no evidence of WMA dizziness may be due to COVID infection , in addition may have some dehydration due to associated emesis on IV hydration, continue , decrease rate given improved BP GI prophylaxis BS management HgA1c 9.7, not at goal off metformin and on LA Levemir, dose increased to 16 bid + 3 u premeal insulin + SSI , BS better BP management, currently hold off all anti HTN continue Flomax fall precautions supportive care case discussed and evaluated by supervising physician Angie Leo NP Jul 04, 2020 08:21
[2020-07-04] MEDS: Levemir Flexpen SUBQ SCH ×2 (08:52→17:09)
[2020-07-04] MEDS: Tamsulosin 0.4mg cap ORAL SCH (08:53)
[2020-07-04 12:00] VITALS: BP 117/82
[2020-07-04 16:00] VITALS: BP 116/78
[2020-07-04] MEDS: Enoxaparin 40mg Inj SUBQ SCH (17:09)
--- NOTE | 2020-07-04 18:44 | NUR ---
NURSE HAND-OFF: Important Events on Shift:monitoring blood sugar and vitals; tried to wean oxygen, patient sats well; Patient Status: Diet: Pending Orders: Pending Results/Labs: Pending MD notification: Latest Vital Signs: Temperature 98.7 , Pulse 93 , B/P 116 /78 , Respiratory Rate 18 , O2 SAT 93 , Room Air, O2 Flow Rate 2.0 . Vital Sign Comment: Latest Bey Fall Score: 35 Fall Risk: Medium Risk Safety Measures: Call light Within Reach, Bed Alarm Zone 1, Side Rails Side Rails x2, Bed position Low and Locked. Fall Precautions: Yellow Socks Door Sign Patient Fall Education Report given to .
--- NOTE | 2020-07-04 19:38 | NUR ---
HAND-OFF: Report given to SOLIS Earl.
[2020-07-04 20:00] VITALS: BP 105/79
--- NOTE | 2020-07-04 20:00 | NUR ---
NURSE NOTES: RECEIVED PATIENT LYING IN BED, AWAKE, ALERT/ORIENTED X4, VERBALLY RESPONSIVE, DENIES PAIN. NO SIGNS AND SYMPTOMS OF ACUTE CARDIO RESPIRATORY DISTRESS/SHORTNESS OF BREATH, DENIES CHEST PAIN, NO PERIPHERAL EDEMA NOTED. IV INTACT, NO SIGNS OF INFILTRATION, NO REDNESS/SWELLING NOTED TO SITE. CONTINENT OF B/B, ASAD GI DISCOMFORT, NO N/V/D, AUDIBLE BOWEL SOUNDS, URINAL AT BEDSIDE. SIDE RAILS UP X2 FOR MOBILITY, BED IN LOWEST POSITION FOR SAFETY, ENCOURAGED PATIENT TO UTILIZE CALL LIGHT FOR ASSISTANCE, VERBALIZED UNDERSTANDING. CONTINUE WITH CURRENT PLAN OF CARE. ISOLATION PRECAUTIONS OBSERVED AT ALL TIMES. NAD.
--- NOTE | 2020-07-04 22:00 | Cardiac Electrophysiology PN ---
Assessment/Plan Assessment/Plan 1. Shortness of breath. Ruled out for MN. Echo EF 60% 2. COVID pneumonia, in isolation. On steroid and remdesivir and antibiotic. On 2 liter NC 3. Uncontrolled Diabetes, on metformin and insulin. 4. Hyperlipidemia. 5. Hypotension. Improved with NS 6. Vomiting, could be due to COVID infection. CORY RN Subjective Subjective In covid isolation in NAD on 2 liter NC Alert and oriented Objective Last 24 Hour Vital Signs Date Time Temp Pulse Resp B/P (MAP) Pulse Ox O2 Delivery O2 Flow Rate FiO2 07/04/20 16:00 98.7 93 18 116/78 (91) 93 07/04/20 12:00 98.2 91 18 117/82 (94) 97 07/04/20 09:00 Nasal Cannula 2.0 07/04/20 08:00 98.3 18 94/69 (77) 94 07/04/20 04:00 98.4 18 116/74 (88) 84 07/04/20 00:00 98.2 18 117/60 (79) 88 Intake and Output 07/03/20 07/04/20 19:00 07:00 Intake Total 660 ml Output Total 800 ml 1500 ml Balance -140 ml -1500 ml IV Total 660 ml Output Urine Total 800 ml 1500 ml # Voids 4 Laboratory Tests Test 07/04/20 05:18 07/04/20 07:50 POC Whole Blood Glucose 108 MG/DL (74-106) H C-Reactive Protein, Quantitative Pending Objective HEAD AND NECK: Shows no JVD. LUNGS: Coarse rhonchi. CARDIOVASCULAR: Shows regular S1 and S2 with no gallop. ABDOMEN: Soft. EXTREMITIES: No pitting edema. Néstor Riley MD Jul 04, 2020 22:00
--- NOTE | 2020-07-04 23:20 | Infectious Diseases Prog Note ---
Assessment/Plan Assessment/Plan ASSESSMENT AND PLAN: 1. covid-19 virus infection with pna, ? CAP, hypoxia leukocytosis likely secondary to steroids - s/p dexamethasone and remdesivir - s/p azithromycin and ceftriaxone - monitor hypoxia, labs and chest x-ray - clinically better, patient feels better, sats stable - increased CRP noted and worsening chest x-ray - ? restart steroids - defer to pulmonary medicine 2. Syncope. Workup per Primary and Cardiology. 3. Diabetes. 4. Hypertension. 5. Blood pressure and blood sugar treatment per primary care team. 6. Dyslipidemia. 7. Asthma. 8. GERD. 9. Gout. 10. Continue treatment per primary consultants. 11. Allergies to sulfamethoxazole. 12. Social history is negative. 13. Family history is noncontributory. 14. MAR is noted. 15. Case discussed with RN. Subjective Constitutional: Reports: fatigue; Denies: fever HEENT: Denies: congestion Respiratory: Denies: shortness of breath Cardiovascular: Denies: chest pain Gastrointestinal/Abdominal: Denies: nausea, vomiting, diarrhea Genitourinary: Reports: other - no mark Psychiatric: Denies: depression Skin: Denies: rash Hematologic: Denies: bleeding Musculoskeletal: Denies: pain Allergies: Coded Allergies: SULFAMETHOXAZOLE (Verified Allergy, Unknown, 12/30/19) Objective Last 24 Hour Vital Signs Date Time Temp Pulse Resp B/P (MAP) Pulse Ox O2 Delivery O2 Flow Rate FiO2 07/04/20 16:00 98.7 93 18 116/78 (91) 93 07/04/20 12:00 98.2 91 18 117/82 (94) 97 07/04/20 09:00 Nasal Cannula 2.0 07/04/20 08:00 98.3 18 94/69 (77) 94 07/04/20 04:00 98.4 18 116/74 (88) 84 07/04/20 00:00 98.2 18 117/60 (79) 88 Height (Feet): 5 Height (Inches): 1.00 Weight (Pounds): 155 General Appearance: no acute distress HEENT: normocephalic, atraumatic, anicteric Respiratory/Chest: crackles/rales, rhonchi - bilaterally Cardiovascular: normal rate, regular rhythm, no gallop/murmur Abdomen: normal bowel sounds, soft, non tender, no organomegaly, non distended Genitourinary: other - no mark Extremities: no cyanosis Skin: no rash 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 Normal heart size and pleural spaces remain clear Impression: New bilateral infiltrates, likely multifocal pneumonia, appearance nonspecific as regards etiology Chest x-ray 06/26/20 - FINDINGS: Lungs: Patchy pulmonary infiltrates, most confluent in the left lung base. Pleural space: Unremarkable. No pneumothorax. Heart: Unremarkable. No cardiomegaly. Mediastinum: Unremarkable. Bones/joints: No acute fracture. Other findings: 06/26/20 at 1322 IMPRESSION: Patchy pulmonary infiltrates, most confluent in the left lung base. Chest x-ray - 06/29/20: Procedure: XRAY Chest 1v Indication: Shortness of breath Technique: One view of the chest Comparison: 06/26/2020 Findings: Again demonstrated are bilateral peripheral streaky infiltrates, appearing slightly increased. There is a nodular opacity at the right lung base which was not evident previously. There is very slight blunting of right costophrenic sulcus Impression: Slightly increased bilateral infiltrates, likely indicating worsening pneumonia Nodular opacity at the right lung base, not evident previously and therefore presumably representing focal area of consolidation. Possible developing trace right pleural effusion Chest x-ray - 07/03/20 - Procedure: XRAY Chest 1v Indication: Shortness of breath Technique: XRAY Chest 1v Comparison: 06/29/2020 Findings: Worsening aeration with increasing bilateral infiltrates with now somewhat confluent infiltrates noted in the periphery bilaterally. No significant pleural effusion. No pneumothorax. Heart size and mediastinal contours are stable. Osseous structures are stable. Impression: Worsening aeration with increasing bilateral infiltrates. Microbiology Date/Time Source Procedure Growth Status 06/21/20 20:00 Nasopharynx SARS-CoV-2 RdRp Gene Assay - Final Complete Labs Test 07/02/20 05:58 07/02/20 09:47 07/02/20 11:09 07/02/20 12:15 POC Whole Blood Glucose 111 MG/DL (74-106) 228 MG/DL (74-106) C-Reactive Protein, Quantitative 60.7 mg/L (<5) Test 07/02/20 16:39 07/03/20 04:30 07/03/20 21:16 07/04/20 05:18 POC Whole Blood Glucose 232 MG/DL (74-106) 173 MG/DL (74-106) 108 MG/DL (74-106) White Blood Count 9.7 K/UL (4.8-10.8) Red Blood Count 4.95 M/UL (4.70-6.10) Hemoglobin 15.5 G/DL (14.2-18.0) Hematocrit 44.6 % (42.0-52.0) Mean Corpuscular Volume 90 FL (80-99) Mean Corpuscular Hemoglobin 31.2 PG (27.0-31.0) Mean Corpuscular Hemoglobin Concent 34.7 G/DL (32.0-36.0) Red Cell Distribution Width 12.5 % (11.6-14.8) Platelet Count 335 K/UL (150-450) Mean Platelet Volume 5.9 FL (6.5-10.1) Neutrophils (%) (Auto) 70.4 % (45.0-75.0) Lymphocytes (%) (Auto) 14.5 % (20.0-45.0) Monocytes (%) (Auto) 12.5 % (1.0-10.0) Eosinophils (%) (Auto) 1.6 % (0.0-3.0) Basophils (%) (Auto) 0.9 % (0.0-2.0) Test 07/04/20 07:50 Laboratory Tests Test 07/04/20 05:18 07/04/20 07:50 POC Whole Blood Glucose 108 MG/DL (74-106) H C-Reactive Protein, Quantitative Pending cr - 1.0 Current Medications Medications (Trade) Dose Ordered Sig/Judith Route PRN Reason Start Time Stop Time Status Last Admin Dose Admin Acetaminophen (Tylenol) 650 mg Q4H PRN ORAL Mild Pain (Pain Scale 1-3) 07/01/20 18:30 07/31/20 18:29 Acetaminophen (Tylenol) 650 mg Q4H PRN ORAL Temp >100.5 06/22/20 11:15 07/22/20 11:14 07/01/20 18:59 Albuterol Sulfate (Proventil MDI) 2 puff Q4H PRN INH Shortness of Breath 06/22/20 11:15 09/20/20 11:14 Dextrose (Dextrose 50%) 25 ml Q30M PRN IV Hypoglycemia 06/22/20 11:30 09/20/20 11:29 Dextrose (Dextrose 50%) 50 ml Q30M PRN IV Hypoglycemia 06/22/20 11:30 09/20/20 11:29 Enoxaparin Sodium (Lovenox) 40 mg Q24H SUBQ 06/22/20 17:00 09/20/20 16:59 07/04/20 17:09 Famotidine (Pepcid) 40 mg DAILY ORAL 06/23/20 09:00 09/21/20 08:59 07/04/20 08:53 Guaifenesin/ Dextromethorphan (Robitussin DM Syrup) 10 ml Q4H PRN ORAL For Cough 06/23/20 17:19 09/21/20 17:18 06/24/20 22:35 Insulin Aspart (NovoLOG) BEFORE MEALS AND HS SUBQ 06/22/20 11:30 09/20/20 11:29 07/04/20 22:16 Insulin Aspart (NovoLOG) 3 units NOVOTIAC SUBQ 06/30/20 11:50 09/28/20 11:49 07/04/20 17:09 Insulin Detemir (Levemir) 16 units BID SUBQ 07/03/20 09:00 09/22/20 11:29 07/04/20 17:09 Metoclopramide HCl (Reglan) 10 mg Q6H PRN IVP Nausea & Vomiting 06/22/20 11:15 07/22/20 11:14 06/24/20 22:35 Ondansetron HCl (Zofran) 4 mg Q4H PRN IVP Nausea & Vomiting 06/22/20 22:15 07/22/20 22:14 06/28/20 12:14 Tamsulosin HCl (Flomax) 0.4 mg DAILY ORAL 06/23/20 09:00 07/23/20 08:59 07/04/20 08:53 Sidra Lowry MD Jul 04, 2020 23:20
[2020-07-05] VITALS: BP 98/66
[2020-07-05 04:00] VITALS: BP 108/75
[2020-07-05] MEDS: NovoLOG Insulin Flexpen SUBQ SCH ×7 (06:30→21:20)
--- NOTE | 2020-07-05 07:45 | NUR ---
NURSE NOTES: RECEIVED PATIENT IN BED ON SEMI ZULUAGA'S POSITION. AWAKE, ALERT/ORIENTED X4, VERBALLY RESPONSIVE, ABLE TO MAKE NEEDS KNOWN. AMBULATORY. DENIES PAIN. NO SIGNS AND SYMPTOMS OF ACUTE CARDIO-RESPIRATORY DISTRESS/SHORTNESS OF BREATH, DENIES CHEST PAIN, NO PERIPHERAL EDEMA NOTED. PIV PATENT AND INTACT, NO SIGNS OF INFILTRATION, NO REDNESS/SWELLING NOTED TO SITE. CONTINENT OF B/B, ASAD GI DISCOMFORT, NO N/V/D, AUDIBLE BOWEL SOUNDS, URINAL AT BEDSIDE. SIDE RAILS UP X2 FOR MOBILITY, BED IN LOWEST POSITION FOR SAFETY, BED BRAKES AND ALARM ENGAGED. ENCOURAGED PATIENT TO UTILIZE CALL LIGHT FOR ASSISTANCE, VERBALIZED UNDERSTANDING. CONTINUE WITH CURRENT PLAN OF CARE. ISOLATION PRECAUTIONS OBSERVED AT ALL TIMES.
[2020-07-05 08:00] VITALS: BP 96/64
--- NOTE | 2020-07-05 08:18 | NUR ---
NURSE HAND-OFF: Important Events on Shift:[UNEVENTFUL NIGHT, RESTED WELL-SATURATION 94 - 96%] Patient Status: [STABLE, AFEBRILE] Diet: [CCHO M LOW FAT/LOW CHO] Pending Orders: [CHEST X RAY 07/06-VENOUS DUPLEX ORDERED ROUTINE, AM LABS] Pending Results/Labs:[] Pending MD notification:[] Latest Vital Signs: Temperature 97.8 , Pulse 88 , B/P 108 /75 , Respiratory Rate 18 , O2 SAT 94 , Room Air, O2 Flow Rate 2.0 . Vital Sign Comment: [STABLE, AFEBRILE] Latest Bey Fall Score: 35 Fall Risk: Medium Risk Safety Measures: Call light Within Reach, Bed Alarm Zone 1, Side Rails Side Rails x2, Bed position Low and Locked. Fall Precautions: Yellow Socks Door Sign Patient Fall Education Report given to [SOLIS WELLS].
[2020-07-05] MEDS: Tamsulosin 0.4mg cap ORAL SCH (08:26)
[2020-07-05] MEDS: Levemir Flexpen SUBQ SCH ×2 (08:28→18:00)
--- NOTE | 2020-07-05 08:50 | Pulmonology Progress Note ---
Subjective Constitutional: Reports: fatigue; Denies: fever Gastrointestinal/Abdominal: Denies: nausea, vomiting, diarrhea Psychiatric: Denies: depression Skin: Denies: rash Musculoskeletal: Denies: pain Allergies: Coded Allergies: SULFAMETHOXAZOLE (Verified Allergy, Unknown, 12/30/19) Subjective on O2 via NC , no resp distress but desaturates to 88 and below when off O2 , off IVF now, BP on the low side,m but no dizziness, no fevers, leukocytosis resolved BS better CRP up Objective Last 24 Hour Vital Signs Date Time Temp Pulse Resp B/P (MAP) Pulse Ox O2 Delivery O2 Flow Rate FiO2 07/05/20 08:00 97.7 92 21 96/64 (75) 94 07/05/20 04:00 97.8 88 18 108/75 (86) 94 07/05/20 00:00 97.5 92 20 98/66 (77) 94 07/04/20 21:00 Nasal Cannula 2.0 07/04/20 20:00 98.1 95 18 105/79 (88) 95 07/04/20 16:00 98.7 93 18 116/78 (91) 93 07/04/20 12:00 98.2 91 18 117/82 (94) 97 07/04/20 09:00 Nasal Cannula 2.0 Intake and Output 07/04/20 07/05/20 19:00 07:00 Output Total 800 ml Balance -800 ml Output Urine Total 800 ml # Voids 3 Objective General Appearance: no apparent distress, alert , oriented x3 Lines, tubes and drains: peripheral HEENT: normocephalic, atraumatic, anicteric, Neck: non-tender, supple Respiratory/Chest: chest wall non-tender, lungs clear, no respiratory distress Cardiovascular/Chest: normal rate, regular rhythm Abdomen: normal bowel sounds, non tender, soft Extremities: normal range of motion, non-tender, no calf tenderness, normal capillary refill Skin Exam: warm/dry Neurologic: no motor/sensory deficits, alert, oriented x 3, responsive, normal mood/affect Lymphatic: anterior cervical Musculoskeletal: normal muscle bulk Laboratory Tests 07/05/20 06:57: POC Whole Blood Glucose 124H Current Medications Medications (Trade) Dose Ordered Sig/Judith Route PRN Reason Start Time Stop Time Status Last Admin Dose Admin Acetaminophen (Tylenol) 650 mg Q4H PRN ORAL Mild Pain (Pain Scale 1-3) 07/01/20 18:30 07/31/20 18:29 Acetaminophen (Tylenol) 650 mg Q4H PRN ORAL Temp >100.5 06/22/20 11:15 07/22/20 11:14 07/01/20 18:59 Albuterol Sulfate (Proventil MDI) 2 puff Q4H PRN INH Shortness of Breath 06/22/20 11:15 09/20/20 11:14 Dextrose (Dextrose 50%) 25 ml Q30M PRN IV Hypoglycemia 06/22/20 11:30 09/20/20 11:29 Dextrose (Dextrose 50%) 50 ml Q30M PRN IV Hypoglycemia 06/22/20 11:30 09/20/20 11:29 Enoxaparin Sodium (Lovenox) 40 mg Q24H SUBQ 06/22/20 17:00 09/20/20 16:59 07/04/20 17:09 Famotidine (Pepcid) 40 mg DAILY ORAL 06/23/20 09:00 09/21/20 08:59 07/05/20 08:26 Guaifenesin/ Dextromethorphan (Robitussin DM Syrup) 10 ml Q4H PRN ORAL For Cough 06/23/20 17:19 09/21/20 17:18 06/24/20 22:35 Insulin Aspart (NovoLOG) BEFORE MEALS AND HS SUBQ 06/22/20 11:30 09/20/20 11:29 07/04/20 22:16 Insulin Aspart (NovoLOG) 3 units NOVOTIAC SUBQ 06/30/20 11:50 09/28/20 11:49 07/04/20 17:09 Insulin Detemir (Levemir) 16 units BID SUBQ 07/03/20 09:00 09/22/20 11:29 07/05/20 08:28 Metoclopramide HCl (Reglan) 10 mg Q6H PRN IVP Nausea & Vomiting 06/22/20 11:15 07/22/20 11:14 06/24/20 22:35 Ondansetron HCl (Zofran) 4 mg Q4H PRN IVP Nausea & Vomiting 06/22/20 22:15 07/22/20 22:14 1/3/21 12:14 Tamsulosin HCl (Flomax) 0.4 mg DAILY ORAL 06/23/20 09:00 07/23/20 08:59 07/05/20 08:26 Assessment/Plan Assessment/Plan ASSESSMENT COVID 19 pneumonia Dizziness, near syncope with associated nonbloody nonbilious emesis Hypoxia Hypokalemia Hypotension currently Hx of HTN HLD IDDM Gout BPH PLAN OF CARE MS floor isolation Date of sx onset: 4 days prior to presentation to ED on 06/21 Positive test: 06/21 rapid COVID 19 + O2 -> 2 l NC, continue titration , so far unable to wean from o2 HFA s/p REM x 5 days ( 06/24- 06/29 ) s/p Dex x 10 days ( 06/23 -07/02) restart Solumedrol 40 mg bid D #1 ( 07/05 -) , given persistent hypoxia, rising CRP and worsening CXR DVT PPX: Lovenox D dimer 0.19 Trend CRP 6.0-17.4-5.5-30.5-60.7-55.5 Abx per ID recs, completed a/tussive prn CXR 07/02 Worsening aeration with increasing bilateral infiltrates. get Venous Duplex BLE may need O2 on dc Monitor volumes and renal function off IVF closely monitor hemodynamics Fup with consultants recs FC Discuss GOC CT head negative serial troponin NGT, ECG non ischemic, ruled out for acute [place] ECHO with pEF, no evidence of WMA dizziness may be due to COVID infection , in addition may have some dehydration due to associated emesis on IV hydration, continue , decrease rate given improved BP GI prophylaxis BS management HgA1c 9.7, not at goal off metformin and on LA Levemir, dose increased to 16 bid + 3 u premeal insulin + SSI , BS better BP management, currently hold off all anti HTN continue Flomax fall precautions supportive care dc plan may need O2, will repeat weaning off O2 and check pulse ox while ambulating case discussed and evaluated by supervising physician Angie Leo NP Jul 05, 2020 08:50
[2020-07-05 09:33] LABS: ANION GAP 10 mmol/L (5-15); BLOOD UREA NITROGEN 11 mg/dL (7-18); CALCIUM 8.6 MG/DL (8.5-10.1); CARBON DIOXIDE 23 MMOL/L (21-32); CHLORIDE 109 MMOL/L (98-107); CREATININE 0.9 MG/DL (0.55-1.30); POTASSIUM 3.2 MMOL/L (3.5-5.1); SODIUM 142 MMOL/L (136-145)
[2020-07-05 09:41] LABS: BASOPHILS % (AUTO) 1.3 % (0.0-2.0); EOSINOPHILS % (AUTO) 1.3 % (0.0-3.0); HEMATOCRIT 45.2 % (42.0-52.0); HEMOGLOBIN 15.8 G/DL (14.2-18.0); LYMPHOCYTES % (AUTO) 14.8 % (20.0-45.0); MEAN CORPUSCULAR VOLUME 89 FL (80-99); MONOCYTES % (AUTO) 9.1 % (1.0-10.0); NEUTROPHILS % (AUTO) 73.4 % (45.0-75.0); PLATELET COUNT 346 K/UL (150-450); RED BLOOD COUNT 5.09 M/UL (4.70-6.10); RED CELL DISTRIBUTION WIDTH 13.7 % (11.6-14.8); WHITE BLOOD COUNT 10.3 K/UL (4.8-10.8)
[2020-07-05] MEDS: Solu-MEDROL 40mg Inj IVP SCH ×2 (11:03→21:20)
[2020-07-05 12:00] VITALS: BP 102/69
--- NOTE | 2020-07-05 12:44 | Diagnostic Imaging Report ---
EXAM: US Duplex Bilateral Lower Extremities Veins CLINICAL HISTORY: SOB TECHNIQUE: Real-time duplex ultrasound scan of the bilateral lower extremity veins integrating B-mode two-dimensional vascular structure, Doppler spectral analysis, color flow Doppler imaging and compression. COMPARISON: None FINDINGS: Right deep veins: Unremarkable. No DVT in the right common femoral, femoral, proximal deep femoral or popliteal veins. The veins demonstrate normal color flow, are normally compressible, with normal phasic flow and/or augmentation response. Right superficial veins: Unremarkable. No thrombus in the visualized right great saphenous vein. Left deep veins: Unremarkable. No DVT in the left common femoral, femoral, proximal deep femoral or popliteal veins. The veins demonstrate normal color flow, are normally compressible, with normal phasic flow and/or augmentation response. Left superficial veins: Unremarkable. No thrombus in the visualized left great saphenous vein. Soft tissues: No acute findings. No popliteal cyst. IMPRESSION: No deep venous thrombosis identified in either lower extremity.
--- NOTE | 2020-07-05 12:47 | NUR ---
NURSE NOTES: PATIENT MONITORED FOR O2 SAT WHILE SITTING 96; WHILE AMBULATING 94%. TOLERATING RA OF NOW. NO ACUTE RESP DISTRESS NOTED. OFF FROM O2 2L VIA NC. WILL CONT TO MONITOR.
[2020-07-05 16:00] VITALS: BP 102/79
--- NOTE | 2020-07-05 17:01 | NUR ---
NURSE NOTES: MADE BO CAO NP AWARE OF THE K+3.2 TODAY'S LAB. WILL CONT TO MONITOR. Addendum: 07/05/20 at 1711 by KEI SNYDER LVN NEW ORDER OBTAINED.
[2020-07-05] MEDS: Enoxaparin 40mg Inj SUBQ SCH (17:58)
--- NOTE | 2020-07-05 19:13 | NUR ---
NURSE HAND-OFF: Important Events on Shift:[MONITORED O2 SAT WHILE SITTING/AMBULATING] Patient Status: [STABLE] Diet: [CCHO MED] Pending Orders: [LABS; CXR] Pending Results/Labs:[IN AM] Pending MD notification:[] Latest Vital Signs: Temperature 97.9 , Pulse 86 , B/P 102 /79 , Respiratory Rate 18 , O2 SAT 93 , Room Air, O2 Flow Rate 2.0 . Vital Sign Comment: [] Latest Bey Fall Score: 35 Fall Risk: Medium Risk Safety Measures: Call light Within Reach, Bed Alarm Zone 1, Side Rails Side Rails x2, Bed position Low and Locked. Fall Precautions: Yellow Socks Door Sign Patient Fall Education Report given to [DONNA].
--- NOTE | 2020-07-05 19:35 | NUR ---
NURSE NOTES: Received patient awake in bed, AOx4, no s/s of acute distress. IV access patent, dressing dry and intact. Urinal at bedside. Bed low and locked, patient wearing non slip socks.
[2020-07-05 20:00] VITALS: BP 92/60
[2020-07-06] VITALS: BP 107/64
[2020-07-06 04:00] VITALS: BP 108/68
[2020-07-06] MEDS: NovoLOG Insulin Flexpen SUBQ SCH ×7 (05:52→20:46)
[2020-07-06 07:42] LABS: ANION GAP 12 mmol/L (5-15); BLOOD UREA NITROGEN 15 mg/dL (7-18); CALCIUM 9.8 MG/DL (8.5-10.1); CARBON DIOXIDE 23 MMOL/L (21-32); CHLORIDE 105 MMOL/L (98-107); POTASSIUM 4.1 MMOL/L (3.5-5.1); SODIUM 140 MMOL/L (136-145)
[2020-07-06 07:43] LABS: HEMATOCRIT 48.6 % (42.0-52.0); HEMOGLOBIN 16.8 G/DL (14.2-18.0); MEAN CORPUSCULAR VOLUME 90 FL (80-99); PLATELET COUNT 399 K/UL (150-450); RED BLOOD COUNT 5.38 M/UL (4.70-6.10); RED CELL DISTRIBUTION WIDTH 12.3 % (11.6-14.8); WHITE BLOOD COUNT 13.1 K/UL (4.8-10.8)
[2020-07-06 07:47] LABS: BASOPHILS % (AUTO) 0.2 % (0.0-2.0); LYMPHOCYTES % (AUTO) 8.1 % (20.0-45.0); MONOCYTES % (AUTO) 2.8 % (1.0-10.0)
--- NOTE | 2020-07-06 07:47 | NUR ---
HAND-OFF: Report given to IVELISSE Martin. Radiology a bedside for CXR.
--- NOTE | 2020-07-06 07:49 | NUR ---
NURSE NOTES: Received patient in bed,awake, alert and oriented x4. Not in acute respiratory/cardiac distress noted. Breathing is even and unlabored. Lung sound is clear but patient's O2sat is 92-94%,patient denies SOB. Afebrile. Bed is n lowest position and locked. Call light and personnel items within reach. WIll continue plan of care.
[2020-07-06 08:00] VITALS: BP 111/74
[2020-07-06] MEDS: Tamsulosin 0.4mg cap ORAL SCH (08:55)
[2020-07-06] MEDS: Levemir Flexpen SUBQ SCH ×2 (08:57→17:06)
--- NOTE | 2020-07-06 09:35 | NUR ---
RADIOLOGY: PCXR COMPLETED 0800HRS. NF
[2020-07-06] MEDS: Solu-MEDROL 40mg Inj IVP SCH (10:13)
--- NOTE | 2020-07-06 11:01 | Cardiac Electrophysiology PN ---
Assessment/Plan Assessment/Plan 1. Shortness of breath. Ruled out for CA. Echo EF 60% 2. COVID pneumonia in isolation. On steroid, remdesivir and antibiotic. On RA 3. Diabetes, on metformin and insulin. 4. Hyperlipidemia. 5. Hypotension. Improved with NS 6. Vomiting, could be due to COVID infection. CORY RN Subjective Subjective In covid isolation in NAD on 2 liter. NC Alert and oriented Objective Last 24 Hour Vital Signs Date Time Temp Pulse Resp B/P (MAP) Pulse Ox O2 Delivery O2 Flow Rate FiO2 07/06/20 08:00 97.7 86 18 111/74 (86) 93 07/06/20 04:00 98.5 86 18 108/68 (81) 95 07/06/20 00:00 98.3 84 18 107/64 (78) 96 07/05/20 21:53 Room Air 07/05/20 20:00 98.0 81 18 92/60 (71) 96 07/05/20 16:00 97.9 86 18 102/79 (87) 93 07/05/20 12:00 98.2 92 19 102/69 (80) 96 07/05/20 11:26 92 89 92 Intake and Output 07/05/20 07/06/20 19:00 07:00 Intake Total 360 ml Output Total 1100 ml 1000 ml Balance -740 ml -1000 ml Intake Oral 360 ml Output Urine Total 1100 ml 1000 ml # Voids 3 2 # Bowel Movements 1 Laboratory Tests Test 07/05/20 11:17 07/05/20 16:35 07/06/20 06:45 POC Whole Blood Glucose Pending Pending White Blood Count 13.1 K/UL (4.8-10.8) H Red Blood Count 5.38 M/UL (4.70-6.10) Hemoglobin 16.8 G/DL (14.2-18.0) Hematocrit 48.6 % (42.0-52.0) Mean Corpuscular Volume 90 FL (80-99) Mean Corpuscular Hemoglobin 31.2 PG (27.0-31.0) H Mean Corpuscular Hemoglobin Concent 34.5 G/DL (32.0-36.0) Red Cell Distribution Width 12.3 % (11.6-14.8) Platelet Count 399 K/UL (150-450) Mean Platelet Volume 6.6 FL (6.5-10.1) Neutrophils (%) (Auto) 89.0 % (45.0-75.0) H Lymphocytes (%) (Auto) 8.1 % (20.0-45.0) L Monocytes (%) (Auto) 2.8 % (1.0-10.0) Eosinophils (%) (Auto) 0.0 % (0.0-3.0) Basophils (%) (Auto) 0.2 % (0.0-2.0) Sodium Level 140 MMOL/L (136-145) Potassium Level 4.1 MMOL/L (3.5-5.1) Chloride Level 105 MMOL/L (98-107) Carbon Dioxide Level 23 MMOL/L (21-32) Anion Gap 12 mmol/L (5-15) Blood Urea Nitrogen 15 mg/dL (7-18) Creatinine 1.0 MG/DL (0.55-1.30) Estimat Glomerular Filtration Rate > 60 mL/min (>60) Glucose Level 241 MG/DL (74-106) H Calcium Level 9.8 MG/DL (8.5-10.1) C-Reactive Protein, Quantitative 3.6 mg/dL (0.00-0.90) H Objective HEAD AND NECK: No JVD. LUNGS: Coarse rhonchi. CARDIOVASCULAR: Regular S1 and S2 with no gallop. ABDOMEN: Soft. EXTREMITIES: No pitting edema. Néstor Riley MD Jul 06, 2020 11:01
[2020-07-06 12:00] VITALS: BP 122/79
--- NOTE | 2020-07-06 13:00 | NUR ---
NURSE NOTES: Patient has been on room air with O2sat of 93-94%.
--- NOTE | 2020-07-06 13:32 | Diagnostic Imaging Report ---
Indication: Reason For Exam: SOB Technique: One view of the chest Comparison: 07/03/2020 Findings: Again demonstrated are bilateral infiltrates. This appears stable on the left, perhaps slightly improved on the right. Impression: Bilateral infiltrates, may be slightly improved on the right, stable on the left
[2020-07-06 16:00] VITALS: BP 102/66
--- NOTE | 2020-07-06 17:00 | NUR ---
NURSE NOTES: Patient's blood sugar is 417mg/dl. Patient is asymptomatic. Given total 15 units of Novolog(12 units per sliding scale and 3 units of scheduled) and 16 units of levemir. Will continue to monitor.
[2020-07-06] MEDS: Enoxaparin 40mg Inj SUBQ SCH (17:04)
--- NOTE | 2020-07-06 17:18 | Infectious Diseases Prog Note ---
Assessment/Plan Assessment/Plan ASSESSMENT AND PLAN: 1. covid-19 virus infection with pna, ? CAP, hypoxia leukocytosis likely secondary to steroids - s/p dexamethasone and remdesivir - s/p azithromycin and ceftriaxone - monitor hypoxia, labs and chest x-ray - clinically better on solumedrol - tarted secondary to increased crp and ongoing hypoxia and worsening chest x-ray - 07/06/20 - chest x-ray - improved 2. Syncope. Workup per Primary and Cardiology. 3. Diabetes. 4. Hypertension. 5. Blood pressure and blood sugar treatment per primary care team. 6. Dyslipidemia. 7. Asthma. 8. GERD. 9. Gout. 10. Continue treatment per primary consultants. 11. Allergies to sulfamethoxazole. 12. Social history is negative. 13. Family history is noncontributory. 14. MAR is noted. 15. Case discussed with RN. Subjective Constitutional: Reports: fatigue; Denies: fever HEENT: Reports: congestion - less Respiratory: Reports: shortness of breath - less Cardiovascular: Denies: chest pain Gastrointestinal/Abdominal: Denies: nausea, vomiting Genitourinary: Reports: other - no mark Neurologic: Denies: headache Psychiatric: Denies: depression Skin: Denies: rash Hematologic: Denies: bleeding Musculoskeletal: Denies: pain Allergies: Coded Allergies: SULFAMETHOXAZOLE (Verified Allergy, Unknown, 12/30/19) Objective Last 24 Hour Vital Signs Date Time Temp Pulse Resp B/P (MAP) Pulse Ox O2 Delivery O2 Flow Rate FiO2 07/06/20 16:00 97.6 91 18 102/66 (78) 94 07/06/20 12:00 97.7 82 18 122/79 (93) 94 07/06/20 09:00 Room Air 07/06/20 08:00 97.7 86 18 111/74 (86) 93 07/06/20 04:00 98.5 86 18 108/68 (81) 95 07/06/20 00:00 98.3 84 18 107/64 (78) 96 07/05/20 21:53 Room Air 07/05/20 20:00 98.0 81 18 92/60 (71) 96 Height (Feet): 5 Height (Inches): 1.00 Weight (Pounds): 155 General Appearance: no acute distress HEENT: normocephalic, atraumatic, anicteric, mucous membranes moist Respiratory/Chest: crackles/rales, rhonchi - bilaterally Cardiovascular: normal rate, regular rhythm, no gallop/murmur Abdomen: normal bowel sounds, soft, non tender, no organomegaly, non distended Genitourinary: other - no mark Extremities: no cyanosis Skin: no rash 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 Normal heart size and pleural spaces remain clear Impression: New bilateral infiltrates, likely multifocal pneumonia, appearance nonspecific as regards etiology Chest x-ray 06/26/20 - FINDINGS: Lungs: Patchy pulmonary infiltrates, most confluent in the left lung base. Pleural space: Unremarkable. No pneumothorax. Heart: Unremarkable. No cardiomegaly. Mediastinum: Unremarkable. Bones/joints: No acute fracture. Other findings: 06/26/20 at 1322 IMPRESSION: Patchy pulmonary infiltrates, most confluent in the left lung base. Chest x-ray - 06/29/20: Procedure: XRAY Chest 1v Indication: Shortness of breath Technique: One view of the chest Comparison: 06/26/2020 Findings: Again demonstrated are bilateral peripheral streaky infiltrates, appearing slightly increased. There is a nodular opacity at the right lung base which was not evident previously. There is very slight blunting of right costophrenic sulcus Impression: Slightly increased bilateral infiltrates, likely indicating worsening pneumonia Nodular opacity at the right lung base, not evident previously and therefore presumably representing focal area of consolidation. Possible developing trace right pleural effusion Chest x-ray - 07/03/20 - Procedure: XRAY Chest 1v Indication: Shortness of breath Technique: XRAY Chest 1v Comparison: 06/29/2020 Findings: Worsening aeration with increasing bilateral infiltrates with now somewhat confluent infiltrates noted in the periphery bilaterally. No significant pleural effusion. No pneumothorax. Heart size and mediastinal contours are stable. Osseous structures are stable. Impression: Worsening aeration with increasing bilateral infiltrates. Chest x-ray - 07/06/20 - Procedure: XRAY Chest 1v Indication: Reason For Exam: SOB Technique: One view of the chest Comparison: 07/03/2020 Findings: Again demonstrated are bilateral infiltrates. This appears stable on the left, perhaps slightly improved on the right. Impression: Bilateral infiltrates, may be slightly improved on the right, stable on the left Microbiology Date/Time Source Procedure Growth Status 06/21/20 20:00 Nasopharynx SARS-CoV-2 RdRp Gene Assay - Final Complete Microbiology Date/Time Source Procedure Growth Status 06/21/20 20:00 Nasopharynx SARS-CoV-2 RdRp Gene Assay - Final Complete Laboratory Tests Test 07/06/20 06:45 07/06/20 11:49 07/06/20 16:56 07/06/20 16:59 White Blood Count 13.1 K/UL (4.8-10.8) H Red Blood Count 5.38 M/UL (4.70-6.10) Hemoglobin 16.8 G/DL (14.2-18.0) Hematocrit 48.6 % (42.0-52.0) Mean Corpuscular Volume 90 FL (80-99) Mean Corpuscular Hemoglobin 31.2 PG (27.0-31.0) H Mean Corpuscular Hemoglobin Concent 34.5 G/DL (32.0-36.0) Red Cell Distribution Width 12.3 % (11.6-14.8) Platelet Count 399 K/UL (150-450) Mean Platelet Volume 6.6 FL (6.5-10.1) Neutrophils (%) (Auto) 89.0 % (45.0-75.0) H Lymphocytes (%) (Auto) 8.1 % (20.0-45.0) L Monocytes (%) (Auto) 2.8 % (1.0-10.0) Eosinophils (%) (Auto) 0.0 % (0.0-3.0) Basophils (%) (Auto) 0.2 % (0.0-2.0) Sodium Level 140 MMOL/L (136-145) Potassium Level 4.1 MMOL/L (3.5-5.1) Chloride Level 105 MMOL/L (98-107) Carbon Dioxide Level 23 MMOL/L (21-32) Anion Gap 12 mmol/L (5-15) Blood Urea Nitrogen 15 mg/dL (7-18) Creatinine 1.0 MG/DL (0.55-1.30) Estimat Glomerular Filtration Rate > 60 mL/min (>60) Glucose Level 241 MG/DL (74-106) H Calcium Level 9.8 MG/DL (8.5-10.1) C-Reactive Protein, Quantitative 3.6 mg/dL (0.00-0.90) H POC Whole Blood Glucose 317 MG/DL (74-106) H 409 MG/DL (74-106) H 417 MG/DL (74-106) H Current Medications Medications (Trade) Dose Ordered Sig/Judith Route PRN Reason Start Time Stop Time Status Last Admin Dose Admin Acetaminophen (Tylenol) 650 mg Q4H PRN ORAL Mild Pain (Pain Scale 1-3) 07/01/20 18:30 07/31/20 18:29 Acetaminophen (Tylenol) 650 mg Q4H PRN ORAL Temp >100.5 06/22/20 11:15 07/22/20 11:14 07/01/20 18:59 Albuterol Sulfate (Proventil MDI) 2 puff Q4H PRN INH Shortness of Breath 06/22/20 11:15 09/20/20 11:14 Dextrose (Dextrose 50%) 25 ml Q30M PRN IV Hypoglycemia 06/22/20 11:30 09/20/20 11:29 Dextrose (Dextrose 50%) 50 ml Q30M PRN IV Hypoglycemia 06/22/20 11:30 09/20/20 11:29 Enoxaparin Sodium (Lovenox) 40 mg Q24H SUBQ 06/22/20 17:00 09/20/20 16:59 07/06/20 17:04 Famotidine (Pepcid) 40 mg DAILY ORAL 06/23/20 09:00 09/21/20 08:59 07/06/20 08:55 Guaifenesin/ Dextromethorphan (Robitussin DM Syrup) 10 ml Q4H PRN ORAL For Cough 06/23/20 17:19 09/21/20 17:18 06/24/20 22:35 Insulin Aspart (NovoLOG) BEFORE MEALS AND HS SUBQ 06/22/20 11:30 09/20/20 11:29 07/06/20 17:05 Insulin Aspart (NovoLOG) 3 units NOVOTIAC SUBQ 06/30/20 11:50 09/28/20 11:49 07/06/20 17:05 Insulin Detemir (Levemir) 16 units BID SUBQ 07/03/20 09:00 09/22/20 11:29 07/06/20 17:06 Methylprednisolone Sodium Succinate (Solu-MEDROL) 40 mg Q12H IVP 07/05/20 10:00 10/03/20 09:59 07/06/20 10:13 Metoclopramide HCl (Reglan) 10 mg Q6H PRN IVP Nausea & Vomiting 06/22/20 11:15 07/22/20 11:14 06/24/20 22:35 Ondansetron HCl (Zofran) 4 mg Q4H PRN IVP Nausea & Vomiting 06/22/20 22:15 07/22/20 22:14 06/28/20 12:14 Tamsulosin HCl (Flomax) 0.4 mg DAILY ORAL 06/23/20 09:00 07/23/20 08:59 07/06/20 08:55 Sidra Lowry MD Jul 06, 2020 17:18
--- NOTE | 2020-07-06 18:30 | NUR ---
NURSE NOTES: RN rechecked blood sugar. BS is 386mg/dl. Patient is asymptomatic, RN left message to Angie LITTLE and patient is on solu medrol. No changes in patient's diet. Will continue to monitor and re educated on hyperglycemia symptoms.
--- NOTE | 2020-07-06 18:37 | Pulmonology Progress Note ---
Subjective Constitutional: Reports: fatigue; Denies: fever Gastrointestinal/Abdominal: Denies: nausea, vomiting Psychiatric: Denies: depression Skin: Denies: rash Musculoskeletal: Denies: pain Allergies: Coded Allergies: SULFAMETHOXAZOLE (Verified Allergy, Unknown, 12/30/19) Subjective on O2 via NC , intermittently no resp distress no fevers, leukocytosis resolved BS better CRP up restarted yesterday on Solumedrol mild leukocytosis this am, likely due to steroids Objective Last 24 Hour Vital Signs Date Time Temp Pulse Resp B/P (MAP) Pulse Ox O2 Delivery O2 Flow Rate FiO2 07/06/20 16:00 97.6 91 18 102/66 (78) 94 07/06/20 12:00 97.7 82 18 122/79 (93) 94 07/06/20 09:00 Room Air 07/06/20 08:00 97.7 86 18 111/74 (86) 93 07/06/20 04:00 98.5 86 18 108/68 (81) 95 07/06/20 00:00 98.3 84 18 107/64 (78) 96 07/05/20 21:53 Room Air 07/05/20 20:00 98.0 81 18 92/60 (71) 96 Intake and Output 07/05/20 07/06/20 19:00 07:00 Intake Total 360 ml Output Total 1100 ml 1000 ml Balance -740 ml -1000 ml Intake Oral 360 ml Output Urine Total 1100 ml 1000 ml # Voids 3 2 # Bowel Movements 1 Objective General Appearance: no apparent distress, alert , oriented x3 Lines, tubes and drains: peripheral HEENT: normocephalic, atraumatic, anicteric, Neck: non-tender, supple Respiratory/Chest: chest wall non-tender, lungs clear, no respiratory distress Cardiovascular/Chest: normal rate, regular rhythm Abdomen: normal bowel sounds, non tender, soft Extremities: normal range of motion, non-tender, no calf tenderness, normal capillary refill Skin Exam: warm/dry Neurologic: no motor/sensory deficits, alert, oriented x 3, responsive, normal mood/affect Lymphatic: anterior cervical Musculoskeletal: normal muscle bulk Laboratory Tests 07/06/20 06:45: White Blood Count 13.1H, Red Blood Count 5.38, Hemoglobin 16.8, Hematocrit 48.6, Mean Corpuscular Volume 90, Mean Corpuscular Hemoglobin 31.2H, Mean Corpuscular Hemoglobin Concent 34.5, Red Cell Distribution Width 12.3, Platelet Count 399, Mean Platelet Volume 6.6, Neutrophils (%) (Auto) 89.0H, Lymphocytes (%) (Auto) 8.1L, Monocytes (%) (Auto) 2.8, Eosinophils (%) (Auto) 0.0, Basophils (%) (Auto) 0.2, Sodium Level 140, Potassium Level 4.1, Chloride Level 105, Carbon Dioxide Level 23, Anion Gap 12, Blood Urea Nitrogen 15, Creatinine 1.0, Estimat Glomerular Filtration Rate > 60, Glucose Level 241H, Calcium Level 9.8, C- Reactive Protein, Quantitative 3.6H 07/06/20 11:49: POC Whole Blood Glucose 317H 07/06/20 16:56: POC Whole Blood Glucose 409H 07/06/20 16:59: POC Whole Blood Glucose 417H Current Medications Medications (Trade) Dose Ordered Sig/Judith Route PRN Reason Start Time Stop Time Status Last Admin Dose Admin Acetaminophen (Tylenol) 650 mg Q4H PRN ORAL Mild Pain (Pain Scale 1-3) 07/01/20 18:30 07/31/20 18:29 Acetaminophen (Tylenol) 650 mg Q4H PRN ORAL Temp >100.5 06/22/20 11:15 07/22/20 11:14 07/01/20 18:59 Albuterol Sulfate (Proventil MDI) 2 puff Q4H PRN INH Shortness of Breath 06/22/20 11:15 09/20/20 11:14 Dextrose (Dextrose 50%) 25 ml Q30M PRN IV Hypoglycemia 06/22/20 11:30 09/20/20 11:29 Dextrose (Dextrose 50%) 50 ml Q30M PRN IV Hypoglycemia 06/22/20 11:30 09/20/20 11:29 Enoxaparin Sodium (Lovenox) 40 mg Q24H SUBQ 06/22/20 17:00 09/20/20 16:59 07/06/20 17:04 Famotidine (Pepcid) 40 mg DAILY ORAL 06/23/20 09:00 09/21/20 08:59 07/06/20 08:55 Guaifenesin/ Dextromethorphan (Robitussin DM Syrup) 10 ml Q4H PRN ORAL For Cough 06/23/20 17:19 09/21/20 17:18 06/24/20 22:35 Insulin Aspart (NovoLOG) BEFORE MEALS AND HS SUBQ 06/22/20 11:30 09/20/20 11:29 07/06/20 17:05 Insulin Aspart (NovoLOG) 3 units NOVOTIAC SUBQ 06/30/20 11:50 09/28/20 11:49 07/06/20 17:05 Insulin Detemir (Levemir) 16 units BID SUBQ 07/03/20 09:00 09/22/20 11:29 07/06/20 17:06 Methylprednisolone Sodium Succinate (Solu-MEDROL) 40 mg Q12H IVP 07/05/20 10:00 10/03/20 09:59 07/06/20 10:13 Metoclopramide HCl (Reglan) 10 mg Q6H PRN IVP Nausea & Vomiting 06/22/20 11:15 07/22/20 11:14 06/24/20 22:35 Ondansetron HCl (Zofran) 4 mg Q4H PRN IVP Nausea & Vomiting 06/22/20 22:15 07/22/20 22:14 06/28/20 12:14 Tamsulosin HCl (Flomax) 0.4 mg DAILY ORAL 06/23/20 09:00 07/23/20 08:59 07/06/20 08:55 Assessment/Plan Assessment/Plan ASSESSMENT COVID 19 pneumonia Dizziness, near syncope with associated nonbloody nonbilious emesis Hypoxia Hypokalemia Hypotension currently Hx of HTN HLD IDDM Gout BPH PLAN OF CARE MS floor isolation Date of sx onset: 4 days prior to presentation to ED on 06/21 Positive test: 06/21 rapid COVID 19 + O2 -> 2 L NC, intermittently removing to RA, still desaturates HFA s/p REM x 5 days ( 06/24- 06/29 ) s/p Dex x 10 days ( 06/23 -07/02) restarted Solumedrol D #2 40 mg bid ( 07/05 -) , given persistent hypoxia, rising CRP and worsening CXR DVT PPX: Lovenox D dimer 0.19 Trend CRP 6.0-17.4-5.5-30.5-60.7-55.5-3.6 Abx per ID recs, completed a/tussive prn CXR 07/02 Worsening aeration with increasing bilateral infiltrates. get Venous Duplex BLE -NGT CXR 07/06 slightly improved BL infiltrates Monitor volumes and renal function off IVF closely monitor hemodynamics Fup with consultants recs FC Discuss GOC CT head negative serial troponin NGT, ECG non ischemic, ruled out for acute OH ECHO with pEF, no evidence of WMA dizziness may be due to COVID infection , in addition may have some dehydration due to associated emesis on IV hydration, continue , decrease rate given improved BP GI prophylaxis BS management HgA1c 9.7, not at goal off metformin and on LA Levemir, dose increased to 16 bid + 3 u premeal insulin + SSI , BS better BP management, currently hold off all anti HTN continue Flomax fall precautions supportive care dc plan may need O2, CRP down, intermittently on RA, possible dc in am case discussed and evaluated by supervising physician Angie Leo NP Jul 06, 2020 18:37
--- NOTE | 2020-07-06 19:35 | NUR ---
NURSE NOTES: RN received new order from Angie LITTLE due to high BS, one time dose of novolog 10 units now and d/c solu medrol and start prednisone 40mg in am. Orders are in and endorsed to next shift. Patient is stable, asymptomatic.
[2020-07-06] MEDS ORDERED: NovoLOG Insulin Flexpen SUBQ SCH (19:37)
--- NOTE | 2020-07-06 19:38 | NUR ---
NURSE HAND-OFF: Important Events on Shift: elevated blood sugar, d/c solu medrol IV, prednisone 40mg po in am to start. 10 units one time dose of novolog Patient Status: stable Diet: ccho medium Pending Orders: Pending Results/Labs: Pending MD notification: Latest Vital Signs: Temperature 97.6 , Pulse 91 , B/P 102 /66 , Respiratory Rate 18 , O2 SAT 94 , Room Air, O2 Flow Rate 2.0 . Vital Sign Comment: Latest Bey Fall Score: 35 Fall Risk: Medium Risk Safety Measures: Call light Within Reach, Bed Alarm Zone 1, Side Rails Side Rails x2, Bed position Low and Locked. Fall Precautions: Yellow Socks Door Sign Patient Fall Education Report given to Vic and endorsed plan of care.
[2020-07-06 20:00] VITALS: BP 90/56
--- NOTE | 2020-07-06 21:57 | NUR ---
NURSE NOTES: Received patient awake in bed, AOx4, no s/s of acute distress although anxious about wanting to go home soon. IV access patent, dressing dry and intact. Urinal at bedside. Bed low and locked, patient wearing non slip socks.
[2020-07-07 04:00] VITALS: BP 105/61
[2020-07-07] MEDS: NovoLOG Insulin Flexpen SUBQ SCH ×4 (06:00→12:09)
--- NOTE | 2020-07-07 07:30 | NUR ---
NURSE NOTES: Report received from IVELISSE Ho. Patient observed to be awake, alert, and oriented x4. Seen lying in bed with hob elevated currently on room air, no s.sx of SOB/Distress, no c/o any pain or discomfort. Patient with IV site located on Right wrist gauge 22 asymptomatic, inplace and intact. Bed placed on lowest and locked, call light placed within reach and will continue to monitor for any changes in patient's condition.
--- NOTE | 2020-07-07 07:55 | NUR ---
HAND-OFF: Report given to IVELISSE Lyle.
[2020-07-07 08:00] VITALS: BP 94/50
[2020-07-07] MEDS: Tamsulosin 0.4mg cap ORAL SCH (09:30)
[2020-07-07] MEDS: Levemir Flexpen SUBQ SCH (09:31)
[2020-07-07] MEDS ORDERED: PREDNISOLON5 MG/5 M1 PO (10:16)
--- NOTE | 2020-07-07 10:20 | Pulmonology Progress Note ---
Subjective Constitutional: Reports: fatigue; Denies: fever Gastrointestinal/Abdominal: Denies: nausea, vomiting Psychiatric: Denies: depression Skin: Denies: rash Musculoskeletal: Denies: pain Allergies: Coded Allergies: SULFAMETHOXAZOLE (Verified Allergy, Unknown, 12/30/19) Subjective on RA no resp distress no fevers, CXR better CRP down BS last night was high liekly due to steroids, additiional insulin given , Solumedrol changed to Prednisone with fast tapering Objective Last 24 Hour Vital Signs Date Time Temp Pulse Resp B/P (MAP) Pulse Ox O2 Delivery O2 Flow Rate FiO2 07/07/20 08:00 97.2 55 21 94/50 (65) 99 07/07/20 04:00 97.7 85 18 105/61 (76) 95 07/06/20 21:47 Room Air 07/06/20 20:00 97.9 86 18 90/56 (67) 95 07/06/20 16:00 97.6 91 18 102/66 (78) 94 07/06/20 12:00 97.7 82 18 122/79 (93) 94 Intake and Output 07/06/20 07/07/20 19:00 07:00 Intake Total 500 ml 350 ml Output Total 1100 ml Balance -600 ml 350 ml Intake Oral 500 ml 350 ml Output Urine Total 1100 ml # Voids 4 3 # Bowel Movements 1 Objective General Appearance: no apparent distress, alert , oriented x3 Lines, tubes and drains: peripheral HEENT: normocephalic, atraumatic, anicteric, Neck: non-tender, supple Respiratory/Chest: chest wall non-tender, lungs clear, no respiratory distress Cardiovascular/Chest: normal rate, regular rhythm Abdomen: normal bowel sounds, non tender, soft Extremities: normal range of motion, non-tender, no calf tenderness, normal capillary refill Skin Exam: warm/dry Neurologic: no motor/sensory deficits, alert, oriented x 3, responsive, normal mood/affect Lymphatic: anterior cervical Musculoskeletal: normal muscle bulk Laboratory Tests 07/06/20 11:49: POC Whole Blood Glucose 317H 07/06/20 16:56: POC Whole Blood Glucose 409H 07/06/20 16:59: POC Whole Blood Glucose 417H 07/06/20 18:34: POC Whole Blood Glucose 386H 07/07/20 09:23: POC Whole Blood Glucose [Pending] Current Medications Medications (Trade) Dose Ordered Sig/Judith Route PRN Reason Start Time Stop Time Status Last Admin Dose Admin Acetaminophen (Tylenol) 650 mg Q4H PRN ORAL Mild Pain (Pain Scale 1-3) 07/01/20 18:30 07/31/20 18:29 Acetaminophen (Tylenol) 650 mg Q4H PRN ORAL Temp >100.5 06/22/20 11:15 07/22/20 11:14 07/01/20 18:59 Albuterol Sulfate (Proventil MDI) 2 puff Q4H PRN INH Shortness of Breath 06/22/20 11:15 09/20/20 11:14 Dextrose (Dextrose 50%) 25 ml Q30M PRN IV Hypoglycemia 06/22/20 11:30 09/20/20 11:29 Dextrose (Dextrose 50%) 50 ml Q30M PRN IV Hypoglycemia 06/22/20 11:30 09/20/20 11:29 Enoxaparin Sodium (Lovenox) 40 mg Q24H SUBQ 06/22/20 17:00 09/20/20 16:59 07/06/20 17:04 Famotidine (Pepcid) 40 mg DAILY ORAL 06/23/20 09:00 09/21/20 08:59 07/07/20 09:31 Guaifenesin/ Dextromethorphan (Robitussin DM Syrup) 10 ml Q4H PRN ORAL For Cough 06/23/20 17:19 09/21/20 17:18 06/24/20 22:35 Insulin Aspart (NovoLOG) BEFORE MEALS AND HS SUBQ 06/22/20 11:30 09/20/20 11:29 07/06/20 20:46 Insulin Aspart (NovoLOG) 3 units NOVOTIAC SUBQ 06/30/20 11:50 09/28/20 11:49 07/06/20 17:05 Insulin Detemir (Levemir) 16 units BID SUBQ 07/03/20 09:00 09/22/20 11:29 07/07/20 09:31 Metoclopramide HCl (Reglan) 10 mg Q6H PRN IVP Nausea & Vomiting 06/22/20 11:15 07/22/20 11:14 06/24/20 22:35 Ondansetron HCl (Zofran) 4 mg Q4H PRN IVP Nausea & Vomiting 06/22/20 22:15 07/22/20 22:14 06/28/20 12:14 Prednisone (predniSONE) 40 mg DAILY ORAL 07/07/20 09:00 08/06/20 08:59 07/07/20 09:31 Tamsulosin HCl (Flomax) 0.4 mg DAILY ORAL 06/23/20 09:00 07/23/20 08:59 07/07/20 09:30 Assessment/Plan Assessment/Plan ASSESSMENT COVID 19 pneumonia Dizziness, near syncope with associated nonbloody nonbilious emesis Hypoxia Hypokalemia Hypotension currently Hx of HTN HLD IDDM with hyperglycemia ( leikyl due to steroids) Gout BPH PLAN OF CARE MS floor isolation Date of sx onset: 4 days prior to presentation to ED on 06/21 Positive test: 06/21 rapid COVID 19 + O2 -> 2 L NC, intermittently removing to RA, still desaturates HFA s/p REM x 5 days ( 06/24- 06/29 ) s/p Dex x 10 days ( 06/23 -07/02) restarted Solumedrol D #3 40 mg bid ( 07/05 -) , given persistent hypoxia, rising CRP and worsening CXR last night BS high, dc Solumedrol started prednisone 40 mg daily with fast tapering DVT PPX: Lovenox D dimer 0.19 Trend CRP 6.0-17.4-5.5-30.5-60.7-55.5-3.6 Abx per ID recs, completed a/tussive prn CXR 07/02 Worsening aeration with increasing bilateral infiltrates. get Venous Duplex BLE -NGT CXR 07/06 slightly improved BL infiltrates Monitor volumes and renal function off IVF closely monitor hemodynamics Fup with consultants recs FC Discuss GOC CT head negative serial troponin NGT, ECG non ischemic, ruled out for acute AK ECHO with pEF, no evidence of WMA dizziness may be due to COVID infection , in addition may have some dehydration due to associated emesis on IV hydration, continue , decrease rate given improved BP GI prophylaxis BS management HgA1c 9.7, not at goal off metformin and on LA Levemir, dose increased + SSI , BS better BP management, currently hold off all anti HTN continue Flomax fall precautions supportive care dc today pulse ox stable on RA pt has at home levemit and Novolog script for Prednisone for 3 more days provided case discussed and evaluated by supervising physician Angie Leo NP Jul 07, 2020 10:20
--- NOTE | 2020-07-07 11:41 | Cardiac Electrophysiology PN ---
Assessment/Plan Assessment/Plan 1. Shortness of breath. Ruled out for IL. Echo EF 60% 2. COVID pneumonia in isolation. On steroid, remdesivir and antibiotic. On RA 3. Diabetes, on metformin and insulin. 4. Hyperlipidemia. 5. Hypotension. Improved with NS 6. Vomiting, could be due to COVID infection. CORY RN DC home Subjective Subjective In covid isolation in NAD on RA Alert and oriented. DC pending Objective Last 24 Hour Vital Signs Date Time Temp Pulse Resp B/P (MAP) Pulse Ox O2 Delivery O2 Flow Rate FiO2 07/07/20 09:00 Room Air 07/07/20 08:00 97.2 55 21 94/50 (65) 99 07/07/20 04:00 97.7 85 18 105/61 (76) 95 07/06/20 21:47 Room Air 07/06/20 20:00 97.9 86 18 90/56 (67) 95 07/06/20 16:00 97.6 91 18 102/66 (78) 94 07/06/20 12:00 97.7 82 18 122/79 (93) 94 Intake and Output 07/06/20 07/07/20 19:00 07:00 Intake Total 500 ml 350 ml Output Total 1100 ml Balance -600 ml 350 ml Intake Oral 500 ml 350 ml Output Urine Total 1100 ml # Voids 4 3 # Bowel Movements 1 Laboratory Tests Test 07/06/20 11:49 07/06/20 16:56 07/06/20 16:59 07/06/20 18:34 POC Whole Blood Glucose 317 MG/DL (74-106) H 409 MG/DL (74-106) H 417 MG/DL (74-106) H 386 MG/DL (74-106) H Test 07/07/20 09:23 POC Whole Blood Glucose Pending Objective HEAD AND NECK: No JVD. LUNGS: Coarse rhonchi. CARDIOVASCULAR: Regular S1 and S2 with no gallop. ABDOMEN: Soft. EXTREMITIES: No pitting edema. Néstor Riley MD Jul 07, 2020 11:41
[2020-07-07 11:52] VITALS: BP 102/66
--- NOTE | 2020-07-07 13:54 | NUR ---
NURSE NOTES: Received orders from Anige Leo NP for patient to be discharged home. Patient awake, alert and oriented x4. Seen lying in bed currently on room air, no s/sx of SOB/Distress, no c/o any pain or discomfort. Prepared patients discharge documentation. Discharge teachings were given in regards to COVID 19. Patient ID band and IV site removed. All patient belongings were checked and accounted for. Patient's signed all paperworks prior to being discharged. Patient discharged in stable condition.
--- NOTE | 2020-07-08 10:24 | NUR ---
INSURANCE DC INSTRUCTION/CLINICALS (07/04-07/07)FAXED TO [facility] [phone] PH [phone]
--- NOTE | 2020-07-08 16:32 | Discharge Summary ---
Discharge Summary Discharge Summary _ DATE OF ADMISSION: 06/21/2020 DATE OF DISCHARGE: 07/07/2020 DISCHARGED BY: Dr. Villeda REASON FOR ADMISSION: 50 years old male with past medical history of insulin-dependent diabetes mellitus, hypertension, dyslipidemia, asthma, gout, GERD , was brought to emergency department due to generalized weakness for 4 days. Patient was actively vomiting on arrival, but no hematemesis. Patient reported dizziness and felt like he was about to pass out. He denied chest pain, shortness of breath and cough. He denied diarrhea, melena, hematochezia, dysuria, hematuria Upon evaluation no focal neurological deficit. No meningismus signs. Patient was afebrile. EKG revealed sinus rhythm, no acute ischemic changes. Rapid COVID-19 was positive. Ferritin 485, CRP 6, LDH 175 and D-dimer 0.19. Laboratory work-up revealed no leukocytosis , stable hemoglobin and hematocrit. Lactic acid 1.6. Potassium 3.1. Glucose 237. Anion gap within normal limits. Urinalysis revealed +3 protein , positive glucose, but no evidence of UTI. Urine toxicology screen was negative. Chest x-ray initially revealed low lung volumes with bronchovascular crowding. In emergency department patient received empiric antibiotic , Decadron , antiemetic , 1 L of fluid ,but remained extremely dizzy with associated nausea and inability to ambulate Patient subsequently admitted to telemetry floor for further management. CONSULTANTS: oiler and greaser Dr. Ji MONTEMAYOR specialist Dr. Lowry [facility] COURSE: Patient initially admitted to monitored floor to isolation room. CT of the head revealed no acute intracranial pathology. Serial troponin were negative. EKG was nonischemic. Patient was ruled out for acute myocardial infarction. Echocardiogram revealed preserved ejection fraction, no evidence of wall motion abnormality. Dizziness was most probably due to COVID infection; in addition he did have some dehydration due to associated emesis. Patient started on IV hydration with close monitoring of hemodynamics . Patient was provided with supplemental oxygen titrated to keep pulse oximetry above 92%. HFA provided. Patient completed a course of remdesivir for 5 days and dexamethasone for 10 days. DVT prophylaxis with Lovenox provided . Patient was followed -up with inflammatory markers. Patient restarted on Solu-Medrol due to increased CRP, persistent hypoxia and worsening chest x-ray. CRP subsequently trended down to 3.6. Antitussive provided as needed . Antibiotic completed . Venous duplex bilateral lower extremity was negative. Follow-up chest x-ray 07/06 showed slightly improved bilateral infiltrates. Patient eventually was able to be weaned off oxygen to room air. Pulse oximetry remained stable on room air . Volumes and renal parameters were closely monitored. IV fluids stopped . Blood pressure was closely monitored. Patient was off all antihypertensive medications as this time. GI prophylaxis provided. Hemoglobin A1c 9.7 , not at goal. Diabetic diet and diabetic teaching provided . Patient was on long acting insulin, short acting insulin pre-meals and short acting sliding scale of insulin . Hyperglycemia was probably due to steroids. Flomax continued. Fall precaution maintained. Supportive care provided. Patient clinically stabilized and was ready for discharge home. FINAL DIAGNOSES: COVID-19 pneumonia Dizziness, near syncope with associated nonbloody nonbilious emesis -most likely due to COVID-19 -resolved Hypoxia Hypokalemia Hypotension History of hypertension Hyperlipidemia Insulin-dependent diabetes mellitus with hyperglycemia Gout BPH DISCHARGE MEDICATIONS: See Medication Reconciliation list. Prescription for prednisone with tapering for additional 3 days provided. DISCHARGE INSTRUCTIONS: Patient was discharged home. Follow-up with a primary care provider in 1 week. Angie Leo NP Jul 08, 2020 16:32
--- NOTE | 2020-07-10 10:50 | NUR ---
INSURANCE DC SUMMARY FAXED TO [facility] [phone]
== END 2020-07-07 13:53 | disposition home or self-care (01) | DRG 137 ==
LOC: EDBD 18:38 → EMR 18:59 → EDBEDREQ 22:01 → EDBEDREQSVC 22:01 → OBSVTOIN 22:16 → 4E 22:16 → EDBEDREQ 22:36
PROC: XW033E5 Introduction of Remdesivir Anti-infective into Peripheral Vein, Percutaneous Approach, New Technology Group 5 (ICD-10-PCS; principal; 2020-06-24)
DX: U07.1 COVID-19 (principal); J12.82 Pneumonia due to coronavirus disease 2019; E87.6 Hypokalemia; I10 Essential (primary) hypertension; I95.9 Hypotension, unspecified; R09.02 Hypoxemia; E11.65 Type 2 diabetes mellitus with hyperglycemia; E78.5 Hyperlipidemia, unspecified; J45.909 Unspecified asthma, uncomplicated; K21.9 Gastro-esophageal reflux disease without esophagitis; M10.9 Gout, unspecified; N40.0 Benign prostatic hyperplasia without lower urinary tract symptoms; R00.1 Bradycardia, unspecified; R55 Syncope and collapse; R11.10 Vomiting, unspecified; E86.0 Dehydration
CPT/HCPCS: 36415; 70450; 71045; 80048; 80053; 80061; 80307; 81003; 82248; 82550; 82553; 82728; 82962; 83036; 83605; 83615; 83690; 83735; 84443; 84484; 85007; 85025; 85379; 86140; 93005; 93306; 93970; 96361; 96365; 96367; 96375; 99285; J1815; J2405; J2765; J3490; J7030; J8499; S5561; U0002